=== PATIENT | male | born 1995 | race Caucasian/White ===

== ENCOUNTER 2018-11-03 07:13 | Emergency (ER) | payer OTHER, BC | END 2018-11-03 09:00 | disposition home or self-care (01) | LOC: ER FS 07:13 ==

== ENCOUNTER 2019-01-19 22:28 | Emergency (ER) | payer OTHER ==
[~2019-01-19] VITALS: Ht 187.7 cm; Wt 127.5 kg
[~2019-01-19 22:28] MED LIST: CIPR500T4 PO; HYDR-1231 PO
[2019-01-19 23:11] LABS: CLARITY,URINE CLEAR; COLOR,URINE YELLOW; GLUCOSE, URINE (UA) NEGATIVE (NEGATIVE); KETONES,URINE TRACE (NEGATIVE); NITRITE,URINE NEGATIVE (NEGATIVE); PH,URINE 6.5 (5-9); PROTEIN,URINE 2+ (NEGATIVE)
[2019-01-19 23:12] LABS: BACTERIA,URINE NEGATIVE /HPF; LEUKOCYTE ESTERASE ,URINE NEGATIVE (NEGATIVE)
[2019-01-19 23:13] LABS: BILIRUBIN,URINE 1+ (NEGATIVE)
[2019-01-19] MEDS ORDERED: VENL150C98 (23:16)
[2019-01-19] MEDS ORDERED: NS IV 1000 ML 1,000 ML IV ONE (23:38)
[2019-01-19] MEDS ORDERED: NS IV 1000 ML 1,000 ML IV SCH (23:38)
[2019-01-19] MEDS ORDERED: cefTRIAXone FOR IV USE 1,000 MG in WATER (STERILE) FOR INJECTION 10 ML IV ONE (23:45)
[2019-01-19] MEDS ORDERED: ONDANSETRON 4 MG/2 ML (SDV) Z0FRAN IV PRN (23:45)
[2019-01-19] MEDS ORDERED: KETOROLAC 30 MG/ML VIAL IVP ONE (23:45)
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
[2019-01-19 23:58] LABS: HEMATOCRIT 44 % (40-54); HEMOGLOBIN 14.8 G/DL (13.3-17.7); MEAN CORPUSCULAR HEMOGLOBIN 29 PG (25-34); MEAN CORPUSCULAR VOLUME 85 FL (80-99); WHITE BLOOD COUNT 22.9 10^3/uL (4.3-11.0)
[2019-01-19 23:59] LABS: BASOPHILS % (AUTO) 0 % (0-10); EOSINOPHILS % (AUTO) 0 % (0-10); LYMPHOCYTES # (AUTO) 0.7 X 10^3 (1.0-4.0); LYMPHOCYTES % (AUTO) 3 % (12-44); MEAN CORPUSCULAR HGB CONC 34 G/DL (32-36); MEAN PLATELET VOLUME 9.8 FL (7.4-10.4); MONOCYTES # (AUTO) 1.6 X 10^3 (0.0-1.0); MONOCYTES % (AUTO) 7 % (0-12); NEUTROPHILS # (AUTO) 20.5 X 10^3 (1.8-7.8); NEUTROPHILS % (AUTO) 89 % (42-75); PLATELET COUNT 226 10^3/uL (130-400); RED CELL DISTRIBUTION WIDTH 13.5 % (10.0-14.5)
[2019-01-20 00:11] LABS: INR 0.9 (0.8-1.4)
[2019-01-20 00:25] LABS: BAND NEUTROPHILS 11 %; MICROCYTOSIS MODERATE; MONOCYTES % (MANUAL) 1 %; NEUTROPHILS % (MANUAL) 86 %; REACTIVE LYMPHOCYTES 2 %
[2019-01-20 00:26] LABS: ALANINE AMINOTRANSFERASE 114 U/L (0-55); ALBUMIN 4.6 GM/DL (3.2-4.5); ALKALINE PHOSPHATASE 114 U/L (40-136); BILIRUBIN,TOTAL 0.4 MG/DL (0.1-1.0); BUN/CREATININE RATIO 15; CALCIUM 9.3 MG/DL (8.5-10.1); CARBON DIOXIDE 21 MMOL/L (21-32); CHLORIDE 97 MMOL/L (98-107); CREATININE SERUM 0.81 MG/DL (0.60-1.30); GFR ESTIMATED > 60; GLUCOSE 143 MG/DL (70-105); POTASSIUM 4.2 MMOL/L (3.6-5.0); SODIUM 135 MMOL/L (135-145); TOTAL PROTEIN 7.7 GM/DL (6.4-8.2)
[2019-01-20] MEDS ORDERED: LACTATED RINGERS 1,000 ML IV ONE (01:26)
[2019-01-20] MEDS ORDERED: CEFD300C3 PO (02:11)
[2019-01-20] MEDS ORDERED: ONDA4TAB11 PO (02:11)
[2019-01-20 02:19] VITALS: BP 147/58
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
== END 2019-01-20 02:19 | disposition home or self-care (01) ==
LOC: EDUNIT# 22:28 → ER FS 22:29
DX: A41.9 Sepsis, unspecified organism (principal); J18.9 Pneumonia, unspecified organism; J40 Bronchitis, not specified as acute or chronic; N39.0 Urinary tract infection, site not specified; F41.9 Anxiety disorder, unspecified; F31.9 Bipolar disorder, unspecified; F20.9 Schizophrenia, unspecified; Z87.891 Personal history of nicotine dependence
CPT/HCPCS: 36415; 71046; 80053; 81000; 83605; 85007; 85027; 85610; 85730; 87040; 87088; 87804

== ENCOUNTER → 2019-02-07 | Outpatient (CLI) | payer OTHER ==
[~2019-02-07] MED LIST changes: +CEFD300C3 PO; +ONDA4TAB11 PO; +VENL150C98
[2019-02-07 16:38] LABS: ALKALINE PHOSPHATASE 112 U/L (40-136); BILIRUBIN,TOTAL 0.5 MG/DL (0.1-1.0); BUN/CREATININE RATIO 15; CALCIUM 9.7 MG/DL (8.5-10.1); CARBON DIOXIDE 25 MMOL/L (21-32); CHLORIDE 100 MMOL/L (98-107); CREATININE SERUM 0.84 MG/DL (0.60-1.30); GFR ESTIMATED > 60; GLUCOSE 99 MG/DL (70-105); POTASSIUM 4.2 MMOL/L (3.6-5.0); SODIUM 139 MMOL/L (135-145)
[2019-02-07 16:39] LABS: ALANINE AMINOTRANSFERASE 94 U/L (0-55); ALBUMIN 4.6 GM/DL (3.2-4.5); TOTAL PROTEIN 8.2 GM/DL (6.4-8.2)
[2019-02-07 17:06] LABS: BASOPHILS % (AUTO) 1 % (0-10); EOSINOPHILS % (AUTO) 1 % (0-10); HEMATOCRIT 46 % (40-54); HEMOGLOBIN 15.3 G/DL (13.3-17.7); LYMPHOCYTES % (AUTO) 24 % (12-44); MEAN CORPUSCULAR HEMOGLOBIN 28 PG (25-34); MEAN CORPUSCULAR HGB CONC 33 G/DL (32-36); MEAN CORPUSCULAR VOLUME 86 FL (80-99); MEAN PLATELET VOLUME 10.1 FL (7.4-10.4); MONOCYTES % (AUTO) 10 % (0-12); NEUTROPHILS % (AUTO) 64 % (42-75); PLATELET COUNT 303 10^3/uL (130-400); RED CELL DISTRIBUTION WIDTH 13.3 % (10.0-14.5); WHITE BLOOD COUNT 8.2 10^3/uL (4.3-11.0)
[2019-02-07 17:07] LABS: BASOPHILS # (AUTO) 0.1 10^3/uL (0.0-0.1); EOSINOPHILS # (AUTO) 0.1 10^3/uL (0.0-0.3); LYMPHOCYTES # (AUTO) 1.9 X 10^3 (1.0-4.0); MONOCYTES # (AUTO) 0.8 X 10^3 (0.0-1.0); NEUTROPHILS # (AUTO) 5.3 X 10^3 (1.8-7.8)
[2019-02-07 20:06] LABS: BAND NEUTROPHILS 1 %; BASOPHILS % (MANUAL) 0 %; EOSINOPHILS % (MANUAL) 0 %; LYMPHOCYTES % (MANUAL) 26 %; MONOCYTES % (MANUAL) 6 %; NEUTROPHILS % (MANUAL) 67 %
[2019-02-07 22:11] LABS: FREE T4 (FREE THYROXINE) 0.95 NG/DL (0.70-1.48)
== END ==
LOC: LAB FS 15:12
PROVIDERS: ATTEND Nurse Practitioner
DX: I10 Essential (primary) hypertension (principal); R50.9 Fever, unspecified; R10.9 Unspecified abdominal pain
CPT/HCPCS: 36415; 80053; 84439; 84443; 85007; 85027; 87040

== ENCOUNTER 2019-02-09 09:35 | Emergency (ER) | payer OTHER ==
[~2019-02-09] VITALS: Ht 185.4 cm; Wt 135.1 kg
--- NOTE | 2019-02-09 09:40 | NUR ---
Presents to ED Rm 4 after patient states goodbye to his sister Marques that drove him. Marques left phone number [phone] and requests the RN to call her CHELSEY to talk.
[2019-02-09 10:01] LABS: WHITE BLOOD COUNT 9.2 10^3/uL (4.3-11.0)
[2019-02-09 10:02] LABS: BASOPHILS % (AUTO) 0 % (0-10); EOSINOPHILS # (AUTO) 0.1 10^3/uL (0.0-0.3); EOSINOPHILS % (AUTO) 1 % (0-10); HEMATOCRIT 46 % (40-54); HEMOGLOBIN 15.2 G/DL (13.3-17.7); LYMPHOCYTES # (AUTO) 2.3 X 10^3 (1.0-4.0); LYMPHOCYTES % (AUTO) 25 % (12-44); MEAN CORPUSCULAR HEMOGLOBIN 28 PG (25-34); MEAN CORPUSCULAR HGB CONC 33 G/DL (32-36); MEAN CORPUSCULAR VOLUME 86 FL (80-99); MEAN PLATELET VOLUME 9.9 FL (7.4-10.4); MONOCYTES # (AUTO) 0.8 X 10^3 (0.0-1.0); MONOCYTES % (AUTO) 9 % (0-12); NEUTROPHILS # (AUTO) 5.9 X 10^3 (1.8-7.8); NEUTROPHILS % (AUTO) 64 % (42-75); PLATELET COUNT 308 10^3/uL (130-400); RED CELL DISTRIBUTION WIDTH 13.4 % (10.0-14.5)
[2019-02-09 10:11] LABS: AMPHETAMINE SCREEN, URINE NEGATIVE (NEGATIVE); BARBITURATE SCREEN URINE NEGATIVE (NEGATIVE); BENZODIAZEPINES SCREEN URINE NEGATIVE (NEGATIVE); CANNABINOID SCREEN, URINE NEGATIVE (NEGATIVE); COCAINE SCREEN URINE NEGATIVE (NEGATIVE); METHADONE STAT NEGATIVE (NEGATIVE); METHAMPHETAMINE SCREEN URINE S NEGATIVE (NEGATIVE); OPIATE SCREEN URINE NEGATIVE (NEGATIVE); OXYCODONE STAT NEGATIVE (NEGATIVE); PROPOXYPHENE STAT NEGATIVE (NEGATIVE); TRICYCLIC ANTIDEPRESSANTS SCRE NEGATIVE (NEGATIVE)
[2019-02-09 10:19] LABS: CARBON DIOXIDE 26 MMOL/L (21-32); CHLORIDE 98 MMOL/L (98-107); POTASSIUM 3.9 MMOL/L (3.6-5.0); SODIUM 139 MMOL/L (135-145)
[2019-02-09 10:20] LABS: ALANINE AMINOTRANSFERASE 90 U/L (0-55); ALBUMIN 4.9 GM/DL (3.2-4.5); ALKALINE PHOSPHATASE 112 U/L (40-136); BILIRUBIN,TOTAL 0.6 MG/DL (0.1-1.0); BUN/CREATININE RATIO 16; CALCIUM 9.9 MG/DL (8.5-10.1); CREATININE SERUM 0.94 MG/DL (0.60-1.30); GFR ESTIMATED > 60; GLUCOSE 114 MG/DL (70-105); TOTAL PROTEIN 8.2 GM/DL (6.4-8.2)
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
[2019-02-09 10:28] LABS: BILIRUBIN,URINE NEGATIVE (NEGATIVE); CLARITY,URINE CLEAR; COLOR,URINE YELLOW; GLUCOSE, URINE (UA) NEGATIVE (NEGATIVE); KETONES,URINE NEGATIVE (NEGATIVE); LEUKOCYTE ESTERASE ,URINE NEGATIVE (NEGATIVE); NITRITE,URINE NEGATIVE (NEGATIVE); PROTEIN,URINE NEGATIVE (NEGATIVE); WBC,URINE RARE /HPF
--- NOTE | 2019-02-09 10:46 | ED Psychosocial ---
General Chief Complaint: Psych/Social Disorder Nursing Triage Note: Pt presents to ED driven by sister. Pt reports need for admit to mental health for help. Pt resides with biological father under his mental health direction and dependent for lack of financial/unemployed. Pt states he wants away from father or he will harm him. Source: patient Exam Limitations: no limitations (BOO GARDNER MD) History of Present Illness Date Seen by Provider: Feb 09, 2019 Time Seen by Provider: 10:38 Initial Comments The patient is a 23-year-old white male who was brought to the emergency room by his sister. He has been having mental health issues for several years. He is currently living with his father and they do not get along. His sister states that it appears at least by time that some of these issues came up all he was using acid and MDMA. He states that he is been in 3 mental health inpatient facilities the last being about a year ago. At this point he speaks of anger and wanting to kill his father. He believes that his father is hyper orthodox and trying to force got up him. He has recently been placed on an antidepressant. Apparently he has not taken any major tranquilizers although he states that there was a period of time where he came here and was given some sort of shot on a weekly basis. That lasted for about 3 months. He states that he has been seeing a mental health provider in [place]. He was recently seen. (BOO GARDNER MD) Allergies and Home Medications Allergies Coded Allergies: strawberry (Unverified Allergy, Unknown, 10/31/14) Home Medications Cefdinir 300 Mg Capsule, 300 MG PO BID Prescribed by: JOCELIN RAMIREZ on 01/20/19210 Ciprofloxacin HCl 500 Mg Tablet, 500 MG PO BID Prescribed by: TERRI NORMAN on 11/03/18 08 Hydrocodone Bit/Acetaminophen 1 Tab Tablet, 1 TAB PO Q4H PRN for PAIN Prescribed by: ANTONETTE BENNETT on 11/01/14222 Ondansetron 4 Mg Tab.rapdis, 4 MG PO Q6H PRN for NAUSEA/VOMITING Prescribed by: JOCELIN RAMIREZ on 01/20/19210 Patient Home Medication List Home Medication List Reviewed: Yes (JUSTIN SERRANO DO) Review of Systems Constitutional: see HPI EENTM: no symptoms reported Respiratory: no symptoms reported Cardiovascular: no symptoms reported Gastrointestinal: no symptoms reported Genitourinary: no symptoms reported Musculoskeletal: no symptoms reported Skin: no symptoms reported Psychiatric/Neurological: See HPI, Depressed He states that he talked to himself. It is not clear whether he has been hearing voices. (BOO GARDNER MD) Past Btmpirp-Ysteep-Guffvw Hx Patient Social History Alcohol Use: Occasionally Uses Number of Drinks Today: 0 Alcohol Beverage of Choice: Whiskey Recreational Drug Use: No Drug of Choice: Hx-MDMA Smoking Status: Former Smoker Type Used: Cigarettes Former Smoker, Quit: Oct 31, 2017 2nd Hand Smoke Exposure: No Recent Foreign Travel: No Contact w/Someone Who Travel: No Recent Infectious Disease Expo: No Recent Hopitalizations: No Physical Abuse: No Sexual Abuse: No Mistreated: No Fear: No (BOO GARDNER MD) Immunizations Up To Date Tetanus Booster (TDap): More than 5yrs (BOO GARDNER MD) Seasonal Allergies Seasonal Allergies: No (BOO GARDNER MD) Past Medical History Surgeries: Yes (L wrist) Orthopedic Respiratory: No Cardiac: Yes Hypertension Neurological: No Reproductive Disorders: No Sexually Transmitted Disease: No Genitourinary: No Gastrointestinal: No Musculoskeletal: No Arthritis Endocrine: No HEENT: No Cancer: No Psychosocial: Yes Sleep Difficulties, Anxiety, Bipolar, Schizophrenia, Depression Integumentary: No Blood Disorders: No (BOO GARDNER MD) Physical Exam Vital Signs - First Documented 02/09/19 09:40 Temp 36.2 Pulse 101 Resp 22 B/P (MAP) 160/82 (108) Pulse Ox 97 O2 Delivery Room Air (JUSTIN SERRANO DO) Capillary Refill : Less Than 3 Seconds (BOO GARDNER MD) Height, Weight, BMI Height: 6'1.00" Weight: 250lbs. oz. 113.398680rg; 39.00 BMI Method:Stated General Appearance: mild distress (also seems to know many psych words and phrases.) HEENT: normal ENT inspection Neck: full range of motion Respiratory: chest non-tender, lungs clear, normal breath sounds, no respirator y distress, no accessory muscle use, respiratory distress Cardiovascular: normal peripheral pulses, regular rate, rhythm, no edema, no gallop, no JVD, no murmur Gastrointestinal: normal bowel sounds, non tender, soft Extremities: normal range of motion, normal inspection Neurologic/Psychiatric: cardiology fellow II-XII nml as tested, alert (BOO GARDNER MD) Progress/Results/Core Measures Results/Orders Lab Results Laboratory Tests Test 02/09/19 09:45 02/09/19 09:50 Range/Units Salicylates Level < 3.0 L 5.0-20.0 MG/DL Acetaminophen Level < 10 L 10-30 UG/ML White Blood Count 9.2 4.3-11.0 10^3/uL Red Blood Count 5.38 4.35-5.85 10^6/uL Hemoglobin 15.2 13.3-17.7 G/DL Hematocrit 46 40-54 % Mean Corpuscular Volume 86 80-99 FL Mean Corpuscular Hemoglobin 28 25-34 PG Mean Corpuscular Hemoglobin Concent 33 32-36 G/DL Red Cell Distribution Width 13.4 10.0-14.5 % Platelet Count 308 130-400 10^3/uL Mean Platelet Volume 9.9 7.4-10.4 FL Neutrophils (%) (Auto) 64 42-75 % Lymphocytes (%) (Auto) 25 12-44 % Monocytes (%) (Auto) 9 0-12 % Eosinophils (%) (Auto) 1 0-10 % Basophils (%) (Auto) 0 0-10 % Neutrophils # (Auto) 5.9 1.8-7.8 X 10^3 Lymphocytes # (Auto) 2.3 1.0-4.0 X 10^3 Monocytes # (Auto) 0.8 0.0-1.0 X 10^3 Eosinophils # (Auto) 0.1 0.0-0.3 10^3/uL Basophils # (Auto) 0.0 0.0-0.1 10^3/uL Urine Color YELLOW Urine Clarity CLEAR Urine pH 6.0 5-9 Urine Specific [place] 1.025 H 1.016-1.022 Urine Protein NEGATIVE NEGATIVE Urine Glucose (UA) NEGATIVE NEGATIVE Urine Ketones NEGATIVE NEGATIVE Urine Nitrite NEGATIVE NEGATIVE Urine Bilirubin NEGATIVE NEGATIVE Urine Urobilinogen 0.2 < = 1.0 MG/DL Urine Leukocyte Esterase NEGATIVE NEGATIVE Urine RBC (Auto) NEGATIVE NEGATIVE Urine RBC NONE /HPF Urine WBC RARE /HPF Urine Crystals NONE /LPF Urine Bacteria NONE /HPF Urine Casts NONE /LPF Urine Mucus TRACE /LPF Urine Culture Indicated NO Sodium Level 139 135-145 MMOL/L Potassium Level 3.9 3.6-5.0 MMOL/L Chloride Level 98 98-107 MMOL/L Carbon Dioxide Level 26 21-32 MMOL/L Anion Gap 15 H 5-14 MMOL/L Blood Urea Nitrogen 15 7-18 MG/DL Creatinine 0.94 0.60-1.30 MG/DL Estimat Glomerular Filtration Rate > 60 BUN/Creatinine Ratio 16 Glucose Level 114 H 70-105 MG/DL Calcium Level 9.9 8.5-10.1 MG/DL Corrected Calcium 8.5-10.1 MG/DL Total Bilirubin 0.6 0.1-1.0 MG/DL Aspartate Amino Transf (AST/SGOT) 24 5-34 U/L Alanine Aminotransferase (ALT/SGPT) 90 H 0-55 U/L Alkaline Phosphatase 112 40-136 U/L Total Protein 8.2 6.4-8.2 GM/DL Albumin 4.9 H 3.2-4.5 GM/DL Urine Opiates Screen NEGATIVE NEGATIVE Urine Oxycodone Screen NEGATIVE NEGATIVE Urine Methadone Screen NEGATIVE NEGATIVE Urine Propoxyphene Screen NEGATIVE NEGATIVE Urine Barbiturates Screen NEGATIVE NEGATIVE Ur Tricyclic Antidepressants Screen NEGATIVE NEGATIVE Urine Phencyclidine Screen NEGATIVE NEGATIVE Urine Amphetamines Screen NEGATIVE NEGATIVE Urine Methamphetamines Screen NEGATIVE NEGATIVE Urine Benzodiazepines Screen NEGATIVE NEGATIVE Urine Cocaine Screen NEGATIVE NEGATIVE Urine Cannabinoids Screen NEGATIVE NEGATIVE Serum Alcohol < 10 <10 MG/DL (JUSTIN SERRANO DO) Vital Signs/I&O 02/10/19 02/10/19 08:33 11:47 Temp 36.5 35.8 Pulse 77 79 Resp 14 18 B/P (MAP) 111/65 (80) 122/62 (82) Pulse Ox 99 97 (JUSTIN SERRANO DO) Blood Pressure Mean: 108 POS Departure Communication (Admissions) 1205: Mental health services completed assessment. This was shared by Internet with nurse and physician here. The recommendation is for inpatient treatment and the mental health service will be arranging both placement and transportation. (BOO GARDNER MD) Impression Primary Impression: Homicidal behavior Disposition: XFER SHT-TRM HOSP Condition: Stable Transfer Transfer Reason: Exceeds level of care Transfer Progress Notes Patient accepted at [facility] at 1400 on 02/10. Transferred in stable medical condition. Transfer Time: 16:00 Transfer Facility: [facility] Method of Transfer: EMS (JUSTIN SERRANO DO) Departure-Patient Inst. Referrals: VIANNEY MARTÍNEZ MD (PCP/Family) Primary Care Physician BOO GARDNER MD Feb 09, 2019 10:46 POSWHJUSTIN QUINONEZ DO Feb 10, 2019 12:57 POS
--- NOTE | 2019-02-09 10:54 | NUR ---
Call to [facility] screening and spoke with Jacqueline. Tracking #[id number]
[2019-02-09 11:10] LABS: ACETAMINOPHEN < 10 UG/ML (10-30); SALICYLATE < 3.0 MG/DL (5.0-20.0)
--- NOTE | 2019-02-09 11:17 | NUR ---
This RN received call from [facility], Aristeoer visiting with RN.
--- NOTE | 2019-02-09 11:31 | NUR ---
RN begins mental health evaluation via Zoom on Laptop with Luis A and the patient.
--- NOTE | 2019-02-09 12:01 | NUR ---
Patient remains near nurses station in view of RN. Pt's voice is escalating as screener has began to talk about pt's relationship with his father. Pt can be heard in hallway with door closed.
--- NOTE | 2019-02-09 12:05 | NUR ---
Received report from raj Gunn admit and working on calling for placement hoping [facility] and will call us back.
--- NOTE | 2019-02-09 12:30 | NUR ---
Pt out of room to ambulate to bathroom. No verbalized c/o's.
--- NOTE | 2019-02-09 12:52 | NUR ---
Call to sister to request patient get glasses, Effexor, and BP med brought to hospital for his transfer per mention request of Luis A with Mental Health. Pt wants these for his transfer.
--- NOTE | 2019-02-09 13:05 | NUR ---
Patient is pacing non-stop in small rm. Entered room to check on patient and request for water granted.
--- NOTE | 2019-02-09 14:00 | NUR ---
Food that is available in ER patient freezer/refrigerator offered. Patient ate sandwich, chips, orange juice, puddings.
--- NOTE | 2019-02-09 16:14 | NUR ---
[facility] has not called to Luis A to accept pt. Luis A has continued to be in screenings and he just got between cases and called to their facility. Luis A will return call to ER later with update.
--- NOTE | 2019-02-09 16:43 | NUR ---
Call from [facility] Gunn report they gave away bed for placement but also were quoted they had not called Luis A or the [facility] any acceptance and now they inform try again tomorrow. Luis A reported his grievance with them and now offering to try [facility] or [facility]. Pt remains cooperative and requests [place]. Will await return call.
--- NOTE | 2019-02-09 17:40 | NUR ---
Dr Manuel in to see patient and reports sorry for delays in placement but out of hands of ER provider as placement per Mental Health screeners. Pt has been cooperative and appreciation was given. Pt goes to bathroom prn with compliance of returning to room. Intermittant request for a drink of water. Pt has been allowed to watch TV with door being open and continued to be in direct view. Pt has been calm and no observation of pacing or talking to self.
--- NOTE | 2019-02-09 19:25 | NUR ---
Luis A from [facility] called to advise that [facility] in [place] is currently reviewing this patients case.
--- NOTE | 2019-02-09 19:54 | NUR ---
Alex from [facility] admissions called to speak with patient.
[2019-02-09 20:06] VITALS: BP 141/80
--- NOTE | 2019-02-09 22:26 | NUR ---
This RN called [facility] to get a status update. They stated that he was declined by [facility] and they were working on finding another facility. This RN requested to be called back for a status update when they found a facility.
--- NOTE | 2019-02-10 00:28 | NUR ---
This RN called [facility] for a status update. Laura from mental health states that [facility] is considering him but will not have beds available until the morning.
--- NOTE | 2019-02-10 04:56 | NUR ---
Patient is up and this RN updated him on status that was last reported by [facility].
--- NOTE | 2019-02-10 08:20 | NUR ---
Patient provided oatmeal and orange juice for breakfast. Is resting quietly in bed and states he has no other concerns at this time.
[2019-02-10 08:33] VITALS: BP 111/65
--- NOTE | 2019-02-10 08:39 | NUR ---
Received call from [facility], who states they are starting to review the patient's information and will call back to let us know if he is accepted.
--- NOTE | 2019-02-10 09:25 | NUR ---
[facility] called to say they have accepted the patient, but transfer will have to be delayed until 1400 when they discharge patients.
--- NOTE | 2019-02-10 11:16 | NUR ---
Notified Cristhian at [facility] that patient has been accepted at [facility]. Daniit states he will work on transportation for the patient.
--- NOTE | 2019-02-10 11:26 | NUR ---
attempted to call patients sister, lefty, to inform of acceptance at [facility]. Left voice message at this time.
[2019-02-10 11:47] VITALS: BP 122/62
--- NOTE | 2019-02-10 13:39 | NUR ---
Talked to [facility] auxili[facility] supervisor and stated an off duty crew will take the patient. Bruce was informed that the patient will be ready to go at 1400.
[2019-02-10 14:42] VITALS: BP 128/77
== END 2019-02-10 14:36 ==
LOC: EDUNIT# 09:35 → ER FS 09:36
DX: R45.850 Homicidal ideations (principal); I10 Essential (primary) hypertension; F41.9 Anxiety disorder, unspecified; F31.9 Bipolar disorder, unspecified; F20.9 Schizophrenia, unspecified; Z87.891 Personal history of nicotine dependence
CPT/HCPCS: 36415; 80053; 80306; 80320; 80329; 81000; 85025; 93005

== ENCOUNTER 2019-08-29 16:53 | Emergency (ER) | payer OTHER ==
[2019-08-29 17:40] LABS: BILIRUBIN,URINE NEGATIVE (NEGATIVE); CLARITY,URINE CLEAR; COLOR,URINE YELLOW; GLUCOSE, URINE (UA) NEGATIVE (NEGATIVE); KETONES,URINE NEGATIVE (NEGATIVE); LEUKOCYTE ESTERASE ,URINE NEGATIVE (NEGATIVE); NITRITE,URINE NEGATIVE (NEGATIVE); PROTEIN,URINE NEGATIVE (NEGATIVE)
[2019-08-29 17:43] LABS: BACTERIA,URINE NEGATIVE /HPF; RBC,URINE 0-2 /HPF; WBC,URINE RARE /HPF
[2019-08-29 17:50] LABS: AMPHETAMINE SCREEN, URINE NEGATIVE (NEGATIVE); BARBITURATE SCREEN URINE NEGATIVE (NEGATIVE); BENZODIAZEPINES SCREEN URINE NEGATIVE (NEGATIVE); CANNABINOID SCREEN, URINE NEGATIVE (NEGATIVE); COCAINE SCREEN URINE NEGATIVE (NEGATIVE); METHADONE STAT NEGATIVE (NEGATIVE); METHAMPHETAMINE SCREEN URINE S NEGATIVE (NEGATIVE); OPIATE SCREEN URINE NEGATIVE (NEGATIVE); OXYCODONE STAT NEGATIVE (NEGATIVE); PROPOXYPHENE STAT NEGATIVE (NEGATIVE); TRICYCLIC ANTIDEPRESSANTS SCRE NEGATIVE (NEGATIVE)
[2019-08-29 18:02] LABS: EOSINOPHILS % (AUTO) 1 % (0-10); HEMATOCRIT 44 % (40-54); LYMPHOCYTES % (AUTO) 22 % (12-44); MEAN CORPUSCULAR HEMOGLOBIN 30 PG (25-34); MEAN CORPUSCULAR HGB CONC 34 G/DL (32-36); MEAN CORPUSCULAR VOLUME 87 FL (80-99); MEAN PLATELET VOLUME 10.1 FL (7.4-10.4); MONOCYTES % (AUTO) 8 % (0-12); NEUTROPHILS % (AUTO) 69 % (42-75); PLATELET COUNT 254 10^3/uL (130-400); RED CELL DISTRIBUTION WIDTH 13.5 % (10.0-14.5); WHITE BLOOD COUNT 11.6 10^3/uL (4.3-11.0)
[2019-08-29 18:03] LABS: BASOPHILS % (AUTO) 0 % (0-10); EOSINOPHILS # (AUTO) 0.1 10^3/uL (0.0-0.3); LYMPHOCYTES # (AUTO) 2.5 X 10^3 (1.0-4.0); MONOCYTES # (AUTO) 0.9 X 10^3 (0.0-1.0); NEUTROPHILS # (AUTO) 8.1 X 10^3 (1.8-7.8)
[2019-08-29 18:31] LABS: ACETAMINOPHEN < 10 UG/ML (10-30); ALANINE AMINOTRANSFERASE 73 U/L (0-55); ALBUMIN 4.5 GM/DL (3.2-4.5); ALKALINE PHOSPHATASE 102 U/L (40-136); BILIRUBIN,TOTAL 0.3 MG/DL (0.1-1.0); BUN/CREATININE RATIO 14; CALCIUM 9.5 MG/DL (8.5-10.1); CARBON DIOXIDE 24 MMOL/L (21-32); CHLORIDE 102 MMOL/L (98-107); CREATININE SERUM 0.85 MG/DL (0.60-1.30); GFR ESTIMATED > 60; GLUCOSE 94 MG/DL (70-105); POTASSIUM 4.2 MMOL/L (3.6-5.0); SALICYLATE < 0.3 MG/DL (5.0-20.0); SODIUM 140 MMOL/L (135-145); TOTAL PROTEIN 7.2 GM/DL (6.4-8.2)
--- NOTE | 2019-08-29 18:41 | ED Psychosocial ---
General Chief Complaint: Psych/Social Disorder Stated Complaint: MENTAL HEALTH SCREEN Source: patient Exam Limitations: no limitations History of Present Illness Date Seen by Provider: August 29, 2019 Time Seen by Provider: 18:43 Initial Comments Pt presents with depression, suicidal ideation. Has a prior history of suicidal ideation and previous attempts at suicide. He states he feels hopeless and doesn't want to go on. Denies any alcohol or drug use. He states that he takes Effexor and Wellbutrin and he has been taking those recently. Allergies and Home Medications Allergies Coded Allergies: strawberry (Unverified Allergy, Unknown, 10/31/14) Home Medications Cefdinir 300 Mg Capsule, 300 MG PO BID Prescribed by: JOCELIN RAMIREZ on 01/20/19210 Ciprofloxacin HCl 500 Mg Tablet, 500 MG PO BID Prescribed by: TERRI NORMAN on 11/03/18851 Hydrocodone Bit/Acetaminophen 1 Tab Tablet, 1 TAB PO Q4H PRN for PAIN Prescribed by: ANTONETTE BENNETT on 11/01/14222 Ondansetron 4 Mg Tab.rapdis, 4 MG PO Q6H PRN for NAUSEA/VOMITING Prescribed by: JOCELIN RAMIREZ on 01/20/19210 Patient Home Medication List Home Medication List Reviewed: Yes Review of Systems Constitutional: no symptoms reported, see HPI EENTM: see HPI, no symptoms reported Respiratory: no symptoms reported Cardiovascular: see HPI Gastrointestinal: no symptoms reported, see HPI Musculoskeletal: no symptoms reported Psychiatric/Neurological: Depressed, Emotional Problems Suicidal All Other Systems Reviewed Negative Unless Noted: Yes Past Fhdiulw-Biproi-Rbiyod Hx Patient Social History Alcohol Use: Occasionally Uses Number of Drinks Today: GG Alcohol Beverage of Choice: Whiskey Recreational Drug Use: No (denies currently) Drug of Choice: Hx-MDMA Smoking Status: Current Everyday Smoker Type Used: Cigarettes Former Smoker, Quit: Oct 31, 2017 2nd Hand Smoke Exposure: Yes Recent Foreign Travel: No Contact w/Someone Who Travel: No Recent Hopitalizations: No Immunizations Up To Date Tetanus Booster (TDap): More than 5yrs Seasonal Allergies Seasonal Allergies: No Past Medical History Surgeries: Yes (L wrist; knee) Orthopedic Respiratory: No Cardiac: Yes Hypertension Neurological: No Reproductive Disorders: No Sexually Transmitted Disease: No Genitourinary: No Gastrointestinal: No Musculoskeletal: Yes Arthritis Endocrine: No HEENT: No Cancer: No Psychosocial: Yes Sleep Difficulties, Anxiety, Bipolar, Schizophrenia, Depression Integumentary: No Blood Disorders: No Physical Exam Vital Signs - First Documented 08/29/19 08/29/19 17:20 21:30 Temp 36.7 Pulse 120 Resp 16 B/P (MAP) 132/80 (97) Pulse Ox 96 O2 Delivery Room Air Capillary Refill : Height, Weight, BMI Height: 6'1.00" Weight: 250lbs. oz. 113.964753oi; 39.00 BMI Method:Stated General Appearance: WD/WN, no apparent distress HEENT: normal ENT inspection Neck: full range of motion Respiratory: lungs clear, normal breath sounds Cardiovascular: normal peripheral pulses, regular rate, rhythm Gastrointestinal: non tender Extremities: normal range of motion Neurologic/Psychiatric: no motor/sensory deficits, alert, oriented x 3, depressed affect Appearance/Memory: appropriate appearance, impaired insight Behavior/Eye Contact: cooperative Thoughts/Hallucinations: no apparent hallucination Skin: normal color, warm/dry Progress/Results/Core Measures Results/Orders Lab Results Laboratory Tests Test 08/29/19 17:19 08/29/19 17:55 Range/Units Urine Color YELLOW Urine Clarity CLEAR Urine pH 6.0 5-9 Urine Specific [place] 1.020 1.016-1.022 Urine Protein NEGATIVE NEGATIVE Urine Glucose (UA) NEGATIVE NEGATIVE Urine Ketones NEGATIVE NEGATIVE Urine Nitrite NEGATIVE NEGATIVE Urine Bilirubin NEGATIVE NEGATIVE Urine Urobilinogen 0.2 < = 1.0 MG/DL Urine Leukocyte Esterase NEGATIVE NEGATIVE Urine RBC (Auto) NEGATIVE NEGATIVE Urine RBC 0-2 /HPF Urine WBC RARE /HPF Urine Squamous Epithelial Cells NONE /HPF Urine Crystals NONE /LPF Urine Bacteria NEGATIVE /HPF Urine Casts NONE /LPF Urine Mucus MODERATE H /LPF Urine Culture Indicated NO Urine Opiates Screen NEGATIVE NEGATIVE Urine Oxycodone Screen NEGATIVE NEGATIVE Urine Methadone Screen NEGATIVE NEGATIVE Urine Propoxyphene Screen NEGATIVE NEGATIVE Urine Barbiturates Screen NEGATIVE NEGATIVE Ur Tricyclic Antidepressants Screen NEGATIVE NEGATIVE Urine Phencyclidine Screen NEGATIVE NEGATIVE Urine Amphetamines Screen NEGATIVE NEGATIVE Urine Methamphetamines Screen NEGATIVE NEGATIVE Urine Benzodiazepines Screen NEGATIVE NEGATIVE Urine Cocaine Screen NEGATIVE NEGATIVE Urine Cannabinoids Screen NEGATIVE NEGATIVE White Blood Count 11.6 H 4.3-11.0 10^3/uL Red Blood Count 5.06 4.35-5.85 10^6/uL Hemoglobin 15.0 13.3-17.7 G/DL Hematocrit 44 40-54 % Mean Corpuscular Volume 87 80-99 FL Mean Corpuscular Hemoglobin 30 25-34 PG Mean Corpuscular Hemoglobin Concent 34 32-36 G/DL Red Cell Distribution Width 13.5 10.0-14.5 % Platelet Count 254 130-400 10^3/uL Mean Platelet Volume 10.1 7.4-10.4 FL Neutrophils (%) (Auto) 69 42-75 % Lymphocytes (%) (Auto) 22 12-44 % Monocytes (%) (Auto) 8 0-12 % Eosinophils (%) (Auto) 1 0-10 % Basophils (%) (Auto) 0 0-10 % Neutrophils # (Auto) 8.1 H 1.8-7.8 X 10^3 Lymphocytes # (Auto) 2.5 1.0-4.0 X 10^3 Monocytes # (Auto) 0.9 0.0-1.0 X 10^3 Eosinophils # (Auto) 0.1 0.0-0.3 10^3/uL Basophils # (Auto) 0.0 0.0-0.1 10^3/uL Sodium Level 140 135-145 MMOL/L Potassium Level 4.2 3.6-5.0 MMOL/L Chloride Level 102 98-107 MMOL/L Carbon Dioxide Level 24 21-32 MMOL/L Anion Gap 14 5-14 MMOL/L Blood Urea Nitrogen 12 7-18 MG/DL Creatinine 0.85 0.60-1.30 MG/DL Estimat Glomerular Filtration Rate > 60 BUN/Creatinine Ratio 14 Glucose Level 94 70-105 MG/DL Calcium Level 9.5 8.5-10.1 MG/DL Corrected Calcium 9.1 8.5-10.1 MG/DL Total Bilirubin 0.3 0.1-1.0 MG/DL Aspartate Amino Transf (AST/SGOT) 16 5-34 U/L Alanine Aminotransferase (ALT/SGPT) 73 H 0-55 U/L Alkaline Phosphatase 102 40-136 U/L Total Protein 7.2 6.4-8.2 GM/DL Albumin 4.5 3.2-4.5 GM/DL Salicylates Level < 0.3 L 5.0-20.0 MG/DL Acetaminophen Level < 10 L 10-30 UG/ML Serum Alcohol < 10 <10 MG/DL Vital Signs/I&O 08/29/19 08/29/19 17:20 21:30 Temp 36.7 Pulse 120 Resp 16 18 B/P (MAP) 132/80 (97) 144/82 (102) Pulse Ox 96 97 O2 Delivery Room Air Initial ECG Impression Date: August 29, 2019 Initial ECG Rate: 86 Initial ECG Rhythm: Normal Sinus Initial ECG Intervals: Normal Initial ECG Impression: Normal Departure Impression Primary Impression: Suicidal ideation Disposition: 65 XFER TO PSYCH HOSP/UNIT Condition: Stable Transfer Transfer Reason: Exceeds level of care Time Spoke to Accepting Phy: 00:30 Transfer Progress Notes Accepted by Dr. Hoover. Transfer Time: 00:30 Transfer Facility: [facility] Method of Transfer: EMS Departure-Patient Inst. Referrals: VIANNEY MARTÍNEZ MD (PCP/Family) Primary Care Physician MILAN REBOLLAR MD August 29, 2019 18:41
--- NOTE | 2019-08-29 18:59 | NUR ---
Called [facility] to request screening. Labs, facesheets, and notes to be faxed to [phone]. Tracking number is [id number]
[2019-08-29] MEDS ORDERED: BUSP15TA60 (19:01)
[2019-08-29] MEDS ORDERED: METO-333 (19:01)
--- NOTE | 2019-08-29 19:42 | NUR ---
[facility] screener on zoom with ptKyle
--- NOTE | 2019-08-29 20:24 | NUR ---
psych screening completed
--- NOTE | 2019-08-29 21:07 | NUR ---
[facility] screener called to state she will try to get a hold of [facility] for pts voluntary placement.
[2019-08-29 21:30] VITALS: BP 144/82
--- NOTE | 2019-08-29 23:50 | NUR ---
Elia noriega called to verify vital signs. pt updated on status, pt is resting on cot with no complaints.
--- NOTE | 2019-08-30 00:28 | NUR ---
[facility] pt. Alejandrina spoke with pts parents earlier and father will transport. Dr Hoover accepted pt.
[2019-08-30 00:42] VITALS: BP 144/89
[2019-08-30 00:45] VITALS: BP 142/89
--- NOTE | 2019-08-30 00:45 | NUR ---
mother here to get pt.
== END 2019-08-30 00:45 ==
LOC: EDUNIT# 16:53 → ER FS 16:54
DX: R45.851 Suicidal ideations (principal); F41.9 Anxiety disorder, unspecified; F31.9 Bipolar disorder, unspecified; F17.210 Nicotine dependence, cigarettes, uncomplicated
CPT/HCPCS: 36415; 80053; 80306; 80320; 80329; 81000; 85025; 93005; 93041

== ENCOUNTER 2019-09-28 14:11 | Emergency (ER) | payer OTHER ==
[~2019-09-28] VITALS: Ht 183 cm; Wt 129.1 kg
[~2019-09-28 14:11] MED LIST changes: +BUSP15TA60; +METO-333
--- NOTE | 2019-09-28 14:12 | ED General ---
General Stated Complaint: WANT MENTAL HEALTH SCREENING History of Present Illness Date Seen by Provider: Sep 28, 2019 Time Seen by Provider: 14:20 Initial Comments Patient is a 24 y/o male who comes to the ER today requesting mental health screening. Patient endorses a chronic history of feeling sad, depressed, and sometimes suicidal about his current life situation. Patient states he has been seen for this in the recent past and electronic medical record confirms this. Today, he has no emergent complaint. He is not actively suicidal and does not have a plan to kill himself. Rather, he states he feels like hurting himself frequently and has diffuse ideas about how to do so. Nothing new today. He does however say he has been punching himself and he does have some ecchymosis noted over the left orbit. No recent viral symptoms. Allergies and Home Medications Allergies Coded Allergies: strawberry (Unverified Allergy, Unknown, 10/31/14) Home Medications Cefdinir 300 Mg Capsule, 300 MG PO BID Prescribed by: JOCELIN RAMIREZ on 01/20/19210 Ciprofloxacin HCl 500 Mg Tablet, 500 MG PO BID Prescribed by: TERRI NORMAN on 11/03/18 0852 Hydrocodone Bit/Acetaminophen 1 Tab Tablet, 1 TAB PO Q4H PRN for PAIN Prescribed by: ANTONETTE BENNETT on 11/01/14 022 Ondansetron 4 Mg Tab.rapdis, 4 MG PO Q6H PRN for NAUSEA/VOMITING Prescribed by: JOCELIN RAMIREZ on 01/20/19210 Patient Home Medication List Home Medication List Reviewed: Yes Review of Systems Review of Systems Constitutional: no symptoms reported EENTM: see HPI Respiratory: no symptoms reported Cardiovascular: no symptoms reported Musculoskeletal: no symptoms reported Skin: no symptoms reported Psychiatric/Neurological: See HPI Physical Exam Vital Signs Vital Signs - First Documented 09/28/19 14:23 Temp 36.4 Pulse 110 Resp 18 B/P (MAP) 136/71 (92) Pulse Ox 97 O2 Delivery Room Air Capillary Refill : Height, Weight, BMI Height: '" Weight: lbs. oz. kg; BMI Method: General Appearance: No Apparent Distress, WD/WN HEENT: PERRL/EOMI Neck: Full Range of Motion Respiratory: Lungs Clear Cardiovascular: Regular Rate, Rhythm Gastrointestinal: Normal Bowel Sounds, Soft Extremity: Normal Capillary Refill Neurologic/Psychiatric: Alert, Oriented x3, Depressed Affect Skin: Normal Color Progress/Results/Core Measures Suspected Sepsis SIRS Temperature: Pulse: Respiratory Rate: Laboratory Tests 09/28/19 14:27: White Blood Count 12.6H Blood Pressure / Mean: Laboratory Tests 09/28/19 14:27: Creatinine 0.78, Platelet Count 298, Total Bilirubin 0.4 Results/Orders Lab Results Laboratory Tests Test 09/28/19 14:27 09/28/19 14:33 Range/Units White Blood Count 12.6 H 4.3-11.0 10^3/uL Red Blood Count 5.38 4.35-5.85 10^6/uL Hemoglobin 16.1 13.3-17.7 G/DL Hematocrit 47 40-54 % Mean Corpuscular Volume 88 80-99 FL Mean Corpuscular Hemoglobin 30 25-34 PG Mean Corpuscular Hemoglobin Concent 34 32-36 G/DL Red Cell Distribution Width 13.7 10.0-14.5 % Platelet Count 298 130-400 10^3/uL Mean Platelet Volume 9.9 7.4-10.4 FL Neutrophils (%) (Auto) 70 42-75 % Lymphocytes (%) (Auto) 21 12-44 % Monocytes (%) (Auto) 8 0-12 % Eosinophils (%) (Auto) 1 0-10 % Basophils (%) (Auto) 0 0-10 % Neutrophils # (Auto) 8.8 H 1.8-7.8 X 10^3 Lymphocytes # (Auto) 2.6 1.0-4.0 X 10^3 Monocytes # (Auto) 1.0 0.0-1.0 X 10^3 Eosinophils # (Auto) 0.2 0.0-0.3 10^3/uL Basophils # (Auto) 0.0 0.0-0.1 10^3/uL Sodium Level 140 135-145 MMOL/L Potassium Level 3.9 3.6-5.0 MMOL/L Chloride Level 102 98-107 MMOL/L Carbon Dioxide Level 24 21-32 MMOL/L Anion Gap 14 5-14 MMOL/L Blood Urea Nitrogen 11 7-18 MG/DL Creatinine 0.78 0.60-1.30 MG/DL Estimat Glomerular Filtration Rate > 60 BUN/Creatinine Ratio 14 Glucose Level 127 H 70-105 MG/DL Calcium Level 9.6 8.5-10.1 MG/DL Corrected Calcium 8.5-10.1 MG/DL Total Bilirubin 0.4 0.1-1.0 MG/DL Aspartate Amino Transf (AST/SGOT) 19 5-34 U/L Alanine Aminotransferase (ALT/SGPT) 74 H 0-55 U/L Alkaline Phosphatase 107 40-136 U/L Total Protein 7.5 6.4-8.2 GM/DL Albumin 4.6 H 3.2-4.5 GM/DL Urine Opiates Screen NEGATIVE NEGATIVE Urine Oxycodone Screen NEGATIVE NEGATIVE Urine Methadone Screen NEGATIVE NEGATIVE Urine Propoxyphene Screen NEGATIVE NEGATIVE Urine Barbiturates Screen NEGATIVE NEGATIVE Ur Tricyclic Antidepressants Screen NEGATIVE NEGATIVE Urine Phencyclidine Screen NEGATIVE NEGATIVE Urine Amphetamines Screen NEGATIVE NEGATIVE Urine Methamphetamines Screen NEGATIVE NEGATIVE Urine Benzodiazepines Screen NEGATIVE NEGATIVE Urine Cocaine Screen NEGATIVE NEGATIVE Urine Cannabinoids Screen NEGATIVE NEGATIVE My Orders Orders - BRUNA CALLOWAY DO Cbc With Automated Diff (09/28/19 14:27) Comprehensive Metabolic Panel (09/28/19 14:27) Drug Screen Stat (Urine) (09/28/19 14:27) Vital Signs/I&O 09/28/19 14:23 Temp 36.4 Pulse 110 Resp 18 B/P (MAP) 136/71 (92) Pulse Ox 97 O2 Delivery Room Air Capillary Refill : Progress Note : Time: 14:39 Progress Note Patient is seen on arrival to his room. No active plan for suicide. Physical exam normal and no clinical signs of intoxication. Requested mental health screening which was refused until the patient underwent urine and lab testing. These labs are ordered only due to screener request and not for any indicated medical evaluation. Patient calm and cooperative. Has been in this ER several times over last couple months and also received screenings at that time. Old labs are reviewed and reveal no abnormalities. 16:30: MH screening pending. Patient has remained calm and cooperative. 17:05: Patient speaking with screener on the phone currently. 18:00: Mental health screen is complete. Patient is cleared for discharge home. He has a safety plan in place according to the mental health screener. They will also call and do checks on him by telephone. He will have a close follow-up appointment this week. Patient is discharged home. Recommended to come back to the ER for any new or persistent thoughts of suicide. I do feel in agreement with the mental health screen. This patient did not express any acute land to hurt himself today. Labs are reviewed and are normal. Departure Impression Primary Impression: Encounter for screening examination for mental health andbehavioral disorders Disposition: 01 HOME, SELF-CARE Condition: Improved BRUNA CALLOWAY DO Sep 28, 2019 14:12
--- NOTE | 2019-09-28 14:20 | NUR ---
Dr[facility] stating patient was medically stable.
--- NOTE | 2019-09-28 14:23 | NUR ---
[facility] mental health notified, stated that it is not possible to medically clear someone without a drug screen and lab work. Dr. Lyons notified.
[2019-09-28 14:38] LABS: HEMATOCRIT 47 % (40-54); HEMOGLOBIN 16.1 G/DL (13.3-17.7); MEAN CORPUSCULAR HEMOGLOBIN 30 PG (25-34); MEAN CORPUSCULAR HGB CONC 34 G/DL (32-36); MEAN CORPUSCULAR VOLUME 88 FL (80-99); MEAN PLATELET VOLUME 9.9 FL (7.4-10.4); PLATELET COUNT 298 10^3/uL (130-400); RED CELL DISTRIBUTION WIDTH 13.7 % (10.0-14.5); WHITE BLOOD COUNT 12.6 10^3/uL (4.3-11.0)
[2019-09-28 14:39] LABS: BASOPHILS % (AUTO) 0 % (0-10); EOSINOPHILS # (AUTO) 0.2 10^3/uL (0.0-0.3); EOSINOPHILS % (AUTO) 1 % (0-10); LYMPHOCYTES # (AUTO) 2.6 X 10^3 (1.0-4.0); LYMPHOCYTES % (AUTO) 21 % (12-44); MONOCYTES % (AUTO) 8 % (0-12); NEUTROPHILS # (AUTO) 8.8 X 10^3 (1.8-7.8); NEUTROPHILS % (AUTO) 70 % (42-75)
[2019-09-28 14:54] LABS: ALANINE AMINOTRANSFERASE 74 U/L (0-55); ALKALINE PHOSPHATASE 107 U/L (40-136); BILIRUBIN,TOTAL 0.4 MG/DL (0.1-1.0); BUN/CREATININE RATIO 14; CALCIUM 9.6 MG/DL (8.5-10.1); CARBON DIOXIDE 24 MMOL/L (21-32); CHLORIDE 102 MMOL/L (98-107); CREATININE SERUM 0.78 MG/DL (0.60-1.30); GFR ESTIMATED > 60; GLUCOSE 127 MG/DL (70-105); POTASSIUM 3.9 MMOL/L (3.6-5.0); SODIUM 140 MMOL/L (135-145); TOTAL PROTEIN 7.5 GM/DL (6.4-8.2)
[2019-09-28 14:55] LABS: ALBUMIN 4.6 GM/DL (3.2-4.5)
[2019-09-28 14:56] LABS: AMPHETAMINE SCREEN, URINE NEGATIVE (NEGATIVE); BARBITURATE SCREEN URINE NEGATIVE (NEGATIVE); BENZODIAZEPINES SCREEN URINE NEGATIVE (NEGATIVE); CANNABINOID SCREEN, URINE NEGATIVE (NEGATIVE); COCAINE SCREEN URINE NEGATIVE (NEGATIVE); METHAMPHETAMINE SCREEN URINE S NEGATIVE (NEGATIVE); OPIATE SCREEN URINE NEGATIVE (NEGATIVE)
[2019-09-28 14:57] LABS: METHADONE STAT NEGATIVE (NEGATIVE); OXYCODONE STAT NEGATIVE (NEGATIVE); PROPOXYPHENE STAT NEGATIVE (NEGATIVE); TRICYCLIC ANTIDEPRESSANTS SCRE NEGATIVE (NEGATIVE)
--- NOTE | 2019-09-28 14:58 | NUR ---
[facility] mental health contacted at this time and notified of patients lab and drug screen being reported. Tracking number [id number]) assigned. Two people ahead of patient at this time. .
--- NOTE | 2019-09-28 17:20 | NUR ---
Zoom meeting started at this time for mental health screen
[2019-09-28 18:07] VITALS: BP 128/68
== END 2019-09-28 18:06 | disposition home or self-care (01) ==
LOC: EDUNIT# 14:11 → ER FS 14:13
DX: Z13.39 Encounter for screening examination for other mental health and behavioral disorders (principal)
CPT/HCPCS: 36415; 80053; 80306; 85025

== ENCOUNTER 2019-12-27 07:36 | Emergency (ER) | payer OTHER ==
[~2019-12-27] VITALS: Ht 187 cm; Wt 125.0 kg
[2019-12-27 07:44] VITALS: BP 150/87
--- NOTE | 2019-12-27 07:57 | ED Psychosocial ---
General Chief Complaint: Psych/Social Disorder Stated Complaint: WANTS MENTAL HEALTH SCREENING Nursing Triage Note: PT REPORTS HE HAS BEEN HAVING ANGER ISSSUES D/T STRRESS AND HAS BEEN PUNCJHING HIS LEGS. Source: patient History of Present Illness Date Seen by Provider: Dec 27, 2019 Time Seen by Provider: 07:50 Initial Comments 24-year-old male presents with complaint that he is angry with himself and has been punching his leg repeatedly. Denies suicidal ideation or plan, denies history of suicide attempt. Denies homicidal ideation or plan. Patient denies history of mental health problems, denies currently seeing a mental health counselor, denies being on any psychiatric medication currently or in the past. He denies drug use. Patient reluctant to answer all questions, rather annoyed with my questions. Allergies and Home Medications Allergies Coded Allergies: strawberry (Unverified Allergy, Unknown, 10/31/14) Home Medications Cefdinir 300 Mg Capsule, 300 MG PO BID Prescribed by: JOCELIN RAMIREZ on 01/20/19210 Ciprofloxacin HCl 500 Mg Tablet, 500 MG PO BID Prescribed by: TERRI NORMAN on 11/03/18 08 Hydrocodone Bit/Acetaminophen 1 Tab Tablet, 1 TAB PO Q4H PRN for PAIN Prescribed by: ANTONETTE BENNETT on 11/01/14 022 Ondansetron 4 Mg Tab.rapdis, 4 MG PO Q6H PRN for NAUSEA/VOMITING Prescribed by: JOCELIN RAMIREZ on 01/20/19210 Patient Home Medication List Home Medication List Reviewed: Yes Review of Systems Constitutional: No dizziness, No fever, No malaise, No weakness Respiratory: no symptoms reported Cardiovascular: no symptoms reported Gastrointestinal: no symptoms reported Psychiatric/Neurological: See HPI, Depressed Past Tqybxfa-Zdvwtq-Wdhtim Hx Past Med/Social Hx: Reviewed Nursing Past Med/Soc Hx Patient Social History Alcohol Use: Denies Use Number of Drinks Today: GG Alcohol Beverage of Choice: Whiskey Recreational Drug Use: No Drug of Choice: Hx-MDMA Type Used: Cigarettes Former Smoker, Quit: Oct 31, 2017 2nd Hand Smoke Exposure: Yes Recent Foreign Travel: No Contact w/Someone Who Travel: No Recent Infectious Disease Expo: No Recent Hopitalizations: No Physical Abuse: No Sexual Abuse: No Mistreated: No Fear: No Immunizations Up To Date Tetanus Booster (TDap): More than 5yrs Seasonal Allergies Seasonal Allergies: No Past Medical History Surgeries: Yes (L wrist; knee) Orthopedic Respiratory: No Cardiac: No Hypertension Neurological: No Reproductive Disorders: No Sexually Transmitted Disease: No Genitourinary: No Gastrointestinal: No Musculoskeletal: Yes Arthritis Endocrine: No HEENT: No Cancer: No Psychosocial: Yes Sleep Difficulties, Anxiety, Bipolar, Schizophrenia, Depression Integumentary: No Blood Disorders: No Physical Exam Vital Signs - First Documented 12/27/19 07:44 Temp 35.9 Pulse 102 Resp 18 B/P (MAP) 150/87 (108) Pulse Ox 98 O2 Delivery Room Air Capillary Refill : Less Than 3 Seconds Height, Weight, BMI Height: 6'1.00" Weight: 250lbs. oz. [id number]; 35.00 BMI Method:Stated General Appearance: WD/WN, no apparent distress Neurologic/Psychiatric: alert, normal mood/affect Appearance/Memory: appropriate appearance Behavior/Eye Contact: cooperative, good eye contact, normal speech Thoughts/Hallucinations: normal thought pattern, no apparent hallucination Skin: normal color, warm/dry Progress/Results/Core Measures Results/Orders Vital Signs/I&O 12/27/19 07:44 Temp 35.9 Pulse 102 Resp 18 B/P (MAP) 150/87 (108) Pulse Ox 98 O2 Delivery Room Air Blood Pressure Mean: 108 Departure Impression Primary Impression: Depression Qualified Codes: F32.9 - Major depressive disorder, single episode, unspecified Disposition: 01 HOME, SELF-CARE Condition: Stable Departure-Patient Inst. Decision time for Depature: 07:55 Referrals: VIANNEY PATEL MD (PCP/Family) Primary Care Physician [facility] Patient Instructions: Depression, Adult (DC) Add. Discharge Instructions: Call your PCP, Dr Patel or [facility] Mental Health to arrange for a follow up evaluation for your anger issues. All discharge instructions reviewed with patient and/or family. Voiced understanding. MARVIN MORAN DO Dec 27, 2019 07:57
== END 2019-12-27 08:00 | disposition home or self-care (01) ==
LOC: EDUNIT# 07:36 → ER FS 07:37
DX: F32.9 Major depressive disorder, single episode, unspecified (principal); I10 Essential (primary) hypertension; Z87.891 Personal history of nicotine dependence; Z77.22 Contact with and (suspected) exposure to environmental tobacco smoke (acute) (chronic); Z86.59 Personal history of other mental and behavioral disorders
CPT/HCPCS: 99283

== ENCOUNTER 2019-12-31 14:14 | Emergency (ER) | payer OTHER ==
[~2019-12-31] VITALS: Ht 187 cm; Wt 125.0 kg
--- NOTE | 2019-12-31 14:25 | NUR ---
Poison Control Center notified and documented under the OD intervention.
[2019-12-31 14:40] LABS: BASOPHILS % (AUTO) 0 % (0-10); EOSINOPHILS % (AUTO) 1 % (0-10); HEMATOCRIT 46 % (40-54); HEMOGLOBIN 15.7 G/DL (13.3-17.7); LYMPHOCYTES % (AUTO) 16 % (12-44); MEAN CORPUSCULAR HEMOGLOBIN 29 PG (25-34); MEAN CORPUSCULAR HGB CONC 34 G/DL (32-36); MEAN CORPUSCULAR VOLUME 85 FL (80-99); MEAN PLATELET VOLUME 10.1 FL (7.4-10.4); MONOCYTES % (AUTO) 5 % (0-12); NEUTROPHILS % (AUTO) 78 % (42-75); PLATELET COUNT 298 10^3/uL (130-400); WHITE BLOOD COUNT 19.1 10^3/uL (4.3-11.0)
[2019-12-31 14:41] LABS: BASOPHILS # (AUTO) 0.1 10^3/uL (0.0-0.1); EOSINOPHILS # (AUTO) 0.2 10^3/uL (0.0-0.3); NEUTROPHILS # (AUTO) 14.8 X 10^3 (1.8-7.8)
[2019-12-31 14:56] LABS: AMPHETAMINE SCREEN, URINE NEGATIVE (NEGATIVE); BARBITURATE SCREEN URINE NEGATIVE (NEGATIVE); BENZODIAZEPINES SCREEN URINE NEGATIVE (NEGATIVE); CANNABINOID SCREEN, URINE NEGATIVE (NEGATIVE); COCAINE SCREEN URINE NEGATIVE (NEGATIVE); METHADONE STAT NEGATIVE (NEGATIVE); METHAMPHETAMINE SCREEN URINE S NEGATIVE (NEGATIVE); OPIATE SCREEN URINE NEGATIVE (NEGATIVE); OXYCODONE STAT NEGATIVE (NEGATIVE); PROPOXYPHENE STAT NEGATIVE (NEGATIVE); TRICYCLIC ANTIDEPRESSANTS SCRE NEGATIVE (NEGATIVE)
[2019-12-31 14:59] LABS: ALANINE AMINOTRANSFERASE 52 U/L (0-55); ALKALINE PHOSPHATASE 106 U/L (40-136); BILIRUBIN,TOTAL 0.5 MG/DL (0.1-1.0); BUN/CREATININE RATIO 14; CALCIUM 9.6 MG/DL (8.5-10.1); CARBON DIOXIDE 22 MMOL/L (21-32); CHLORIDE 102 MMOL/L (98-107); CREATININE SERUM 0.85 MG/DL (0.60-1.30); GFR ESTIMATED > 60; GLUCOSE 98 MG/DL (70-105); POTASSIUM 4.1 MMOL/L (3.6-5.0); SODIUM 141 MMOL/L (135-145)
[2019-12-31 15:00] LABS: ACETAMINOPHEN < 10 UG/ML (10-30); ALBUMIN 4.7 GM/DL (3.2-4.5); SALICYLATE 17.7 MG/DL (5.0-20.0); TOTAL PROTEIN 7.7 GM/DL (6.4-8.2)
[2019-12-31 15:08] LABS: BAND NEUTROPHILS 3 %; BASOPHILS % (MANUAL) 0 %; EOSINOPHILS % (MANUAL) 0 %; LYMPHOCYTES % (MANUAL) 19 %; MONOCYTES % (MANUAL) 10 %; NEUTROPHILS % (MANUAL) 68 %
--- NOTE | 2019-12-31 15:20 | NUR ---
Call to Poison Control Center and update the lab values resulted. Discussed the Salicylate 17.7 value on chemistry machine with values 5-20 normal range. UDS neg, ETOH neg, and Acetaminophen neg. Stable vitals noted with NIBP-138/84, P-78, RR-20, SaO2-97% Rm Air. Negative for Kussmaul breathing, tinnitis, or vomiting. Pt states stomach is upset. Continue to monitor closely advised and order a 2 hr Salicylate level from first and draw sooner if the above sx develop. Typically begin treatment of Bicarb at the level of 35 or sooner if very symptomatic.
--- NOTE | 2019-12-31 15:45 | NUR ---
Pt's father Vince Geiger called and wanted update. Pt was consulted and permission we may talk to either of parents he states. Father states aware the reason to ER was taking too much Aspirin. Updated of consult with poison control and the need to observe and repeat level in 2 hr from first level.
--- NOTE | 2019-12-31 16:02 | ED Psychosocial ---
General Chief Complaint: Overdose Stated Complaint: POSSIBLE OVERDOSE Nursing Triage Note: Pt presents to ED with reported OD, taking intentional OD Aspirin "Adult strength" 20-25 pills at approx 1345. Pt reports "I am upset, bunch of things." Pt states he was seen by his Mental Health Counselor in a fairly brief visit today and reports he did not discuss any of these issues with them. Source: patient, EMS Exam Limitations: no limitations History of Present Illness Date Seen by Provider: Dec 31, 2019 Time Seen by Provider: 15:00 Initial Comments 24-year-old male presents via EMS with complaint of taking 20 aspirin just prior to arrival. Denies suicidal ideation, but took the medication for "multiple reasons". Saw his mental health provider today and states he didn't tell them that he was thinking ....about taking a bunch of pills. Denies any history of suicide attempt or overdose on medication in the past. Denies any chest pain, shortness of air or abdominal pain. Vital signs stable, patient alert and oriented and in no distress. Pt poor historian and not forthcoming w any details of his history. Very short and non-helpful answers to most questioning. Associated Symptoms: denies symptoms, ingestion Allergies and Home Medications Allergies Coded Allergies: strawberry (Unverified Allergy, Unknown, 10/31/14) Home Medications Cefdinir 300 Mg Capsule, 300 MG PO BID Prescribed by: JOCELIN RAMIREZ on 01/20/19210 Ciprofloxacin HCl 500 Mg Tablet, 500 MG PO BID Prescribed by: TERRI NORMAN on 11/03/18 08 Hydrocodone Bit/Acetaminophen 1 Tab Tablet, 1 TAB PO Q4H PRN for PAIN Prescribed by: ANTONETTE BENNETT on 11/01/14 022 Ondansetron 4 Mg Tab.rapdis, 4 MG PO Q6H PRN for NAUSEA/VOMITING Prescribed by: JOCELIN RAMIREZ on 01/20/19210 Patient Home Medication List Home Medication List Reviewed: Yes Review of Systems Constitutional: No dizziness, No fever, No malaise, No weakness EENTM: other (no tinnitus); No hearing loss, No ear pain, No eye pain, No vision loss, No epistaxis, No nose pain, No throat pain, No throat swelling Respiratory: No cough, No short of breath Cardiovascular: No chest pain, No edema, No palpitations, No syncope Gastrointestinal: No abdominal pain, No constipation, No diarrhea, No nausea, No vomiting Musculoskeletal: No back pain, No joint pain Skin: No change in color, No rash Past Zsxszce-Jmjunu-Krmlsz Hx Past Med/Social Hx: Reviewed Nursing Past Med/Soc Hx Patient Social History Alcohol Use: Occasionally Uses Number of Drinks Today: GG Alcohol Beverage of Choice: Whiskey Recreational Drug Use: Yes (Drank 12/25, had quit 6 mo ago) Drug of Choice: Hx-MDMA Smoking Status: Former Smoker Type Used: Cigarettes Former Smoker, Quit: Oct 31, 2017 2nd Hand Smoke Exposure: Yes Recent Foreign Travel: No Contact w/Someone Who Travel: No Recent Infectious Disease Expo: No Recent Hopitalizations: No Physical Abuse: No Sexual Abuse: No Mistreated: No Fear: No Immunizations Up To Date Tetanus Booster (TDap): More than 5yrs Seasonal Allergies Seasonal Allergies: No Past Medical History Surgeries: Yes (L wrist; knee) Orthopedic Respiratory: No Cardiac: No Hypertension Neurological: No Reproductive Disorders: No Sexually Transmitted Disease: No Genitourinary: No Gastrointestinal: No Musculoskeletal: Yes Arthritis Endocrine: No HEENT: No Cancer: No Psychosocial: Yes Sleep Difficulties, Anxiety, Bipolar, Schizophrenia, Depression Integumentary: No Blood Disorders: No Physical Exam Vital Signs - First Documented 12/31/19 14:17 Temp 35.4 Pulse 99 Resp 14 B/P (MAP) 167/98 (121) Pulse Ox 99 O2 Delivery Room Air Capillary Refill : Less Than 3 Seconds Height, Weight, BMI Height: 6'1.00" Weight: 250lbs. oz. [id number]; 35.00 BMI Method:Stated General Appearance: WD/WN, no apparent distress HEENT: PERRL/EOMI, normal ENT inspection Neck: non-tender, supple Respiratory: chest non-tender, lungs clear, normal breath sounds, no respiratory distress, no accessory muscle use Cardiovascular: regular rate, rhythm, no edema, no JVD, no murmur Gastrointestinal: normal bowel sounds, non tender, soft, no organomegaly, no pulsatile mass Extremities: normal range of motion, non-tender, normal inspection, no pedal edema Neurologic/Psychiatric: life skills educator II-XII nml as tested, no motor/sensory deficits, alert, normal mood/affect, oriented x 3 Skin: normal color, warm/dry Progress/Results/Core Measures Results/Orders Lab Results Laboratory Tests Test 12/31/19 14:20 12/31/19 14:28 12/31/19 16:22 12/31/19 17:10 Range/Units Urine Opiates Screen NEGATIVE NEGATIVE Urine Oxycodone Screen NEGATIVE NEGATIVE Urine Methadone Screen NEGATIVE NEGATIVE Urine Propoxyphene Screen NEGATIVE NEGATIVE Urine Barbiturates Screen NEGATIVE NEGATIVE Ur Tricyclic Antidepressants Screen NEGATIVE NEGATIVE Urine Phencyclidine Screen NEGATIVE NEGATIVE Urine Amphetamines Screen NEGATIVE NEGATIVE Urine Methamphetamines Screen NEGATIVE NEGATIVE Urine Benzodiazepines Screen NEGATIVE NEGATIVE Urine Cocaine Screen NEGATIVE NEGATIVE Urine Cannabinoids Screen NEGATIVE NEGATIVE White Blood Count 19.1 H 4.3-11.0 10^3/uL Red Blood Count 5.36 4.35-5.85 10^6/uL Hemoglobin 15.7 13.3-17.7 G/DL Hematocrit 46 40-54 % Mean Corpuscular Volume 85 80-99 FL Mean Corpuscular Hemoglobin 29 25-34 PG Mean Corpuscular Hemoglobin Concent 34 32-36 G/DL Red Cell Distribution Width 13.1 10.0-14.5 % Platelet Count 298 130-400 10^3/uL Mean Platelet Volume 10.1 7.4-10.4 FL Immature Granulocyte % (Auto) 0 % Neutrophils (%) (Auto) 78 H 42-75 % Lymphocytes (%) (Auto) 16 12-44 % Monocytes (%) (Auto) 5 0-12 % Eosinophils (%) (Auto) 1 0-10 % Basophils (%) (Auto) 0 0-10 % Neutrophils # (Auto) 14.8 H 1.8-7.8 X 10^3 Lymphocytes # (Auto) 3.0 1.0-4.0 X 10^3 Monocytes # (Auto) 1.0 0.0-1.0 X 10^3 Eosinophils # (Auto) 0.2 0.0-0.3 10^3/uL Basophils # (Auto) 0.1 0.0-0.1 10^3/uL Immature Granulocyte # (Auto) 0.1 0.0-0.1 10^3/uL Neutrophils % (Manual) 68 % Lymphocytes % (Manual) 19 % Monocytes % (Manual) 10 % Eosinophils % (Manual) 0 % Basophils % (Manual) 0 % Band Neutrophils 3 % Sodium Level 141 142 135-145 MMOL/L Potassium Level 4.1 4.1 3.6-5.0 MMOL/L Chloride Level 102 104 98-107 MMOL/L Carbon Dioxide Level 22 23 21-32 MMOL/L Anion Gap 17 H 15 H 5-14 MMOL/L Blood Urea Nitrogen 12 11 7-18 MG/DL Creatinine 0.85 0.86 0.60-1.30 MG/DL Estimat Glomerular Filtration Rate > 60 > 60 BUN/Creatinine Ratio 14 13 Glucose Level 98 94 70-105 MG/DL Calcium Level 9.6 9.3 8.5-10.1 MG/DL Corrected Calcium 8.5-10.1 MG/DL Total Bilirubin 0.5 0.1-1.0 MG/DL Aspartate Amino Transf (AST/SGOT) 17 5-34 U/L Alanine Aminotransferase (ALT/SGPT) 52 0-55 U/L Alkaline Phosphatase 106 40-136 U/L Total Protein 7.7 6.4-8.2 GM/DL Albumin 4.7 H 3.2-4.5 GM/DL Salicylates Level 17.7 29.7 H 5.0-20.0 MG/DL Acetaminophen Level < 10 L 10-30 UG/ML Serum Alcohol < 10 <10 MG/DL Blood Gas Puncture Site LT RAD Blood Gas Patient Temperature 36.8 Arterial Blood pH 7.54 H 7.37-7.43 Arterial Blood Partial Pressure CO2 24 L 35-45 MMHG Arterial Blood Partial Pressure O2 143 H 79-93 MMHG Arterial Blood HCO3 21 L 23-27 MMOL/L Arterial Blood Total CO2 21.2 21.0-31.0 MMOL/L Arterial Blood Oxygen Saturation 99 94-100 % Arterial Blood Base Excess -0.6 -2.5-2.5 MMOL/L Kelivn Test YES-POS Blood Gas Ventilator Setting NO Blood Gas Inspired Oxygen ROOM AIR Test 12/31/19 18:30 Range/Units Salicylates Level 29.4 H 5.0-20.0 MG/DL My Orders Orders - ROVENSTINE,MARVIN L DO Acetaminophen (12/31/19 14:20) Salicylate (12/31/19 14:20) Alcohol (12/31/19 14:20) Cbc With Automated Diff (12/31/19 14:20) Comprehensive Metabolic Panel (12/31/19 14:20) Drug Screen Stat (Urine) (12/31/19 14:20) Manual Differential (12/31/19 14:28) Salicylate (12/31/19 16:28) Charcoal Activated Aqueous (Actidose Aqu (12/31/19 16:15) Arterial Blood Gas (12/31/19 16:30) Basic Metabolic Panel (12/31/19 16:15) Sodium Bicarbonate 8.4% Syr (Sodium Bica (12/31/19 18:30) 1/2 Ns Iv Solution (0.45% Sodium Chlorid (12/31/19 18:30) Salicylate (12/31/19 18:30) D5w 1000 Ml Iv Solution (Dextrose 5% Tarun (12/31/19 18:36) D5w 1000 Ml Iv Solution (Dextrose 5% Tarun (12/31/19 19:00) Medications Given in ED Current Medications Medications Dose Ordered Sig/Owen Route Start Time Stop Time Status Last Admin Dose Admin Charcoal 125 gm ONCE ONCE PO 12/31/19 16:15 12/31/19 16:16 DC 12/31/19 16:51 50 GM Vital Signs/I&O 12/31/19 12/31/19 14:17 20:00 Temp 35.4 36.1 Pulse 99 81 Resp 14 21 B/P (MAP) 167/98 (121) 123/81 (121) Pulse Ox 99 98 O2 Delivery Room Air Room Air Blood Pressure Mean: 121 Progress Progress Note : Progress Note 1600- Initial salicylate level of 17, which is in normal range and nontoxic. Communication with poison control and process. Patient not displaying any signs clinically of toxicity and is stable with normal vital signs and normal respirations. 1720- elevation of repeat salicylate level at 29. Patient just given 50 g of activated charcoal just after this level was drawn. Still not exhibiting any clinical signs of salicylate overdose. Called to admit patient to [facility], but Dr. Kramer declined as they do not have nephrology services which may be necessary. Called both [facility] in [place] and both are active [place] without any availability. Called [facility] and they were going to accept the patient, but state they would be delayed in getting a bed up to 24 hours. Called [facility] and they have accepted for transfer to [facility]. [facility] fumbled the transfer to "south" and gave his bed away. Pt then accepted to [facility] which caused significant delay. Local EMS ([facility]) would not assist w transportation, so had to enlist support of outlying community, which also caused further delay. Meanwhile pt stable, but salicylate levels had gone up significantly from initial to subsequent and in coordination w Poison Ctrl, decided to start a Bicarb drip as ride to [facility] would be an hour. Due to all the delays a third salicylate was checked just prior to departure and it remained steady, not elevated. Good sign that he had likely peaked and would not require further intervention (dialysis) other than monitoring and following labs and clinical condition. Nurse communicated w family regarding what all had transpired and decisions which led to a far away transfer. Departure Impression Primary Impression: Drug overdose Qualified Codes: T50.902A - Poisoning by unspecified drugs, medicaments and biological substances, intentional self-harm, initial encounter Disposition: XFER SHT-TRM HOSP Condition: Stable Transfer Transfer Reason: Exceeds level of care Time Spoke to Accepting Phy: 17:15 Transfer Progress Notes spoke to Dr Lon Kevin and he accepts for transfer of pt to [facility]...eventually changed to [facility] Method of Transfer: EMS Departure-Patient Inst. Referrals: SELF,VIANENY CAPPS (PCP/Family) Primary Care Physician MARVIN MORAN DO Dec 31, 2019 16:02
[2019-12-31] MEDS ORDERED: CHARCOAL/AQUEOUS 50 GM/240 ML BTL PO ONE (16:15)
[2019-12-31 16:47] LABS: BUN/CREATININE RATIO 13; CALCIUM 9.3 MG/DL (8.5-10.1); CARBON DIOXIDE 23 MMOL/L (21-32); CHLORIDE 104 MMOL/L (98-107); CREATININE SERUM 0.86 MG/DL (0.60-1.30); GFR ESTIMATED > 60; GLUCOSE 94 MG/DL (70-105); POTASSIUM 4.1 MMOL/L (3.6-5.0); SODIUM 142 MMOL/L (135-145)
--- NOTE | 2019-12-31 16:51 | NUR ---
Pt given 1 bottle activated charcoal to drink 50 GM/ 240 ML and becomes upset stomach without emesis. Dr Taylor ok'd hold on further 2 bottles.
--- NOTE | 2019-12-31 17:10 | NUR ---
Notified Dr Taylor of 29.7 Salicylate level.
--- NOTE | 2019-12-31 17:15 | NUR ---
Alerted [facility] of transfer being arranged for distance of [place]. [facility] on diversion.
[2019-12-31 17:16] LABS: ABG BASE EXCESS -0.6 MMOL/L (-2.5-2.5); ABG OXYGEN SATURATION 99 % (94-100); ABG PCO2 24 MMHG (35-45); ABG PH 7.54 (7.37-7.43); ABG PO2 143 MMHG (79-93); ABG TCO2 21.2 MMOL/L (21.0-31.0); ALLENS TEST YES-POS; INSPIRED O2 ROOM AIR; PATIENT TEMP 36.8; VENTILATOR NO
--- NOTE | 2019-12-31 17:16 | NUR ---
Updated Vince Geiger, patients dad, about patient's labs and plan to be admitted to [facility] in [place].
--- NOTE | 2019-12-31 17:20 | NUR ---
ABG's drawn to L wrist as prior draw appears venous.
--- NOTE | 2019-12-31 17:30 | NUR ---
Pt's results given to Poison Control along with ABG's and electrolytes/renal function labs. Assessments to include hearing good bowel sounds and treating any GI disturbance utilizing antiemetics as needed. The ABG's have the plan given to have Na Bicarb readily available and undoubtly being on a drip during transfer. Pt is alert and oriented, no emesis from arrival time. Still uncertain if ASA is Enteric Coated. It is appropriate to plan the transfer to higher level tertiary care.
--- NOTE | 2019-12-31 17:56 | NUR ---
[facility] is accepting facility now as [facility] has now given the bed to pt within the hospital. Dr is notified, patient is notified.
--- NOTE | 2019-12-31 18:02 | NUR ---
Report to Adela JANG at [facility] for Bed 4073. Georgina JANG will be the next shift RN. .
[2019-12-31] MEDS ORDERED: 1/2 NS IV SOLUTION 1,000 ML IV ONE (18:30)
[2019-12-31] MEDS ORDERED: SODIUM BICARB 8.4% 50 MEQ/50 ML (ABBOTT) SYR ONE (18:30)
[2019-12-31] MEDS ORDERED: D5W 1000 ML IV SOLUTION 1,000 ML ONE (18:36)
[2019-12-31] MEDS ORDERED: D5W 1000 ML IV SOLUTION 1,000 ML IV SCH (19:00)
--- NOTE | 2019-12-31 19:15 | NUR ---
Report given to the Transfer Center of [facility] that ETA is awaiting transfer crew from [facility] as called by [facility] staff.
--- NOTE | 2019-12-31 19:30 | NUR ---
Updated the Poison Control Center of current Salicylate level and change of location to [facility] location.
[2019-12-31 20:00] VITALS: BP 123/81
--- NOTE | 2019-12-31 20:00 | NUR ---
[facility]is[facility] from [place] arriving, report given. Pt transferred to [facility] at this time. Condition stable. Remains on a D5W 1 Liter with 2 amps Bicarb to be 100 mEq per liter rate 125 ml/hr. See transfer form and discharge summary.
== END 2019-12-31 20:00 | disposition short-term general hospital (02) ==
LOC: EDUNIT# 14:14 → ER FS 14:15
DX: T39.012A Poisoning by aspirin, intentional self-harm, initial encounter (principal); I10 Essential (primary) hypertension; Z87.891 Personal history of nicotine dependence; Z77.22 Contact with and (suspected) exposure to environmental tobacco smoke (acute) (chronic)
CPT/HCPCS: 36415; 80048; 80053; 80306; 82805; 85007; 85027; 99285; G0480 ×3; 80320; 80329

== ENCOUNTER 2020-10-10 23:56 | Emergency (ER) | payer SELFPAY ==
[~2020-10-10] VITALS: Ht 185.4 cm; Wt 127.3 kg
[~2020-10-10 23:56] MED LIST changes: -CIPR500T4 PO; +CIPR500T5 PO
--- NOTE | 2020-10-11 00:17 | ED Psychosocial ---
General Chief Complaint: Psych/Social Disorder Stated Complaint: MENTAL EVALUATION Source: patient Exam Limitations: no limitations History of Present Illness Date Seen by Provider: Oct 10, 2020 Time Seen by Provider: 23:55 Initial Comments Patient is a 25-year-old male with history of chronic psychosis who presents with complaints of acute suicidal and homicidal ideation. Patient states he has had thoughts of harming himself and others for the least the past week. Of note, patient has been evaluated in this emergency department years time for similar episodes. Patient also has also been cutting his left arm as needed orders superficial abrasions with various stages of healing over his left arm. Patient denies specific thoughts or plan or intent to harm himself or others. No hallucinations delusions or paranoia. No command hallucinations. Denies other acute medical symptoms or complaints. Denies drugs or alcohol. Timing/Duration: week, changing over time, intermittent Severity: moderate Associated Symptoms: other Allergies and Home Medications Allergies Coded Allergies: strawberry (Unverified Allergy, Unknown, 10/31/14) Home Medications Unable to Obtain Active Prescriptions or Reported Meds Patient Home Medication List Home Medication List Reviewed: Yes Review of Systems Constitutional: see HPI EENTM: see HPI Respiratory: see HPI Cardiovascular: see HPI Gastrointestinal: see HPI Musculoskeletal: see HPI Skin: see HPI Psychiatric/Neurological: See HPI All Other Systems Reviewed Negative Unless Noted: Yes Past Cxcwmnx-Hvopqh-Xilanc Hx Patient Social History Tobacco Use?: Yes Tobacco type used: Cigarettes Smoking Status: Current Everyday Smoker Substance use?: No Alcohol Use?: Yes Alcohol Frequency: Once in a while Pt feels they are or have been: No Immunizations Up To Date Tetanus Booster (TDap): More than 5yrs Seasonal Allergies Seasonal Allergies: No Past Medical History Surgery/Hospitalization HX: numerous mental health visits/admits: Hx SI/HI, Overdose, Depression Surgeries: Yes (L wrist; knee) Orthopedic Respiratory: No Cardiac: No Hypertension Neurological: No Reproductive Disorders: No Sexually Transmitted Disease: No Genitourinary: No Gastrointestinal: No Musculoskeletal: Yes Arthritis Endocrine: No HEENT: No Cancer: No Psychosocial: Yes Sleep Difficulties, Anxiety, Bipolar, Schizophrenia, Depression Integumentary: No Blood Disorders: No Physical Exam Vital Signs - First Documented 10/11/20 00:00 Temp 36.4 Pulse 109 Resp 16 B/P (MAP) 125/90 (102) Pulse Ox 98 O2 Delivery Room Air Capillary Refill : Height, Weight, BMI Height: 6'1.00" Weight: 250lbs. oz. [id number]; 35.00 BMI Method:Stated General Appearance: WD/WN, no apparent distress HEENT: PERRL/EOMI, normal ENT inspection Neck: normal inspection Respiratory: lungs clear, normal breath sounds Cardiovascular: normal peripheral pulses, regular rate, rhythm Gastrointestinal: soft Extremities: normal range of motion, other (Patient with numerous superficial abrasions on various levels of healing involving left forearm and upper e xtremity and right forearm. No active bleeding) Neurologic/Psychiatric: alert, oriented x 3, depressed affect, other (Suicidal and homicidal ideation. Patient does not appear to be attending internal stimuli) Appearance/Memory: disheveled, impaired insight, impaired remote memory Behavior/Eye Contact: cooperative, avoids eye contact Thoughts/Hallucinations: no apparent hallucination Skin: other Lymphatic: other Progress/Results/Core Measures Results/Orders Lab Results Laboratory Tests Test 10/11/20 00:06 10/11/20 00:15 10/11/20 00:50 Range/Units Urine Opiates Screen NEGATIVE NEGATIVE Urine Oxycodone Screen NEGATIVE NEGATIVE Urine Methadone Screen NEGATIVE NEGATIVE Urine Propoxyphene Screen NEGATIVE NEGATIVE Urine Barbiturates Screen NEGATIVE NEGATIVE Ur Tricyclic Antidepressants Screen NEGATIVE NEGATIVE Urine Phencyclidine Screen NEGATIVE NEGATIVE Urine Amphetamines Screen NEGATIVE NEGATIVE Urine Methamphetamines Screen NEGATIVE NEGATIVE Urine Benzodiazepines Screen NEGATIVE NEGATIVE Urine Cocaine Screen NEGATIVE NEGATIVE Urine Cannabinoids Screen NEGATIVE NEGATIVE White Blood Count 13.6 H 4.3-11.0 10^3/uL Red Blood Count 4.82 4.35-5.85 10^6/uL Hemoglobin 14.5 13.3-17.7 G/DL Hematocrit 42 40-54 % Mean Corpuscular Volume 87 80-99 FL Mean Corpuscular Hemoglobin 30 25-34 PG Mean Corpuscular Hemoglobin Concent 35 32-36 G/DL Red Cell Distribution Width 13.1 10.0-14.5 % Platelet Count 287 130-400 10^3/uL Mean Platelet Volume 9.7 7.4-10.4 FL Immature Granulocyte % (Auto) 0 % Neutrophils (%) (Auto) 67 42-75 % Lymphocytes (%) (Auto) 23 12-44 % Monocytes (%) (Auto) 8 0-12 % Eosinophils (%) (Auto) 1 0-10 % Basophils (%) (Auto) 0 0-10 % Neutrophils # (Auto) 9.1 H 1.8-7.8 X 10^3 Lymphocytes # (Auto) 3.2 1.0-4.0 X 10^3 Monocytes # (Auto) 1.0 0.0-1.0 X 10^3 Eosinophils # (Auto) 0.1 0.0-0.3 10^3/uL Basophils # (Auto) 0.0 0.0-0.1 10^3/uL Immature Granulocyte # (Auto) 0.1 0.0-0.1 10^3/uL Neutrophils % (Manual) 76 % Lymphocytes % (Manual) 20 % Monocytes % (Manual) 3 % Eosinophils % (Manual) 1 % Platelet Estimate ADEQUATE Blood Morphology Comment NORMAL Sodium Level 139 135-145 MMOL/L Potassium Level 3.8 3.6-5.0 MMOL/L Chloride Level 104 98-107 MMOL/L Carbon Dioxide Level 21 21-32 MMOL/L Anion Gap 14 5-14 MMOL/L Blood Urea Nitrogen 11 7-18 MG/DL Creatinine 0.78 0.60-1.30 MG/DL Estimat Glomerular Filtration Rate > 60 BUN/Creatinine Ratio 14 Glucose Level 112 H 70-105 MG/DL Calcium Level 9.2 8.5-10.1 MG/DL Corrected Calcium 8.8 8.5-10.1 MG/DL Total Bilirubin 0.2 0.1-1.0 MG/DL Aspartate Amino Transf (AST/SGOT) 21 5-34 U/L Alanine Aminotransferase (ALT/SGPT) 64 H 0-55 U/L Alkaline Phosphatase 104 40-136 U/L Total Protein 7.1 6.4-8.2 GM/DL Albumin 4.5 3.2-4.5 GM/DL Serum Alcohol < 10 <10 MG/DL SARS-CoV-2 RNA (RT-PCR) Not Detected Not Detecte My Orders Quentin - PAPITO JORGENSEN DO Cbc And Manual Diff (10/11/20 00:13) Comprehensive Metabolic Panel (10/11/20 00:13) Drug Screen Stat (Urine) (10/11/20 00:13) Alcohol (10/11/20 00:13) Continuous Ekg Monitoring (10/11/20 00:13) Covid 19 Inhouse Test (10/11/20 00:45) Cephalexin Capsule (Keflex Capsule) (10/11/20 05:00) Vital Signs/I&O 10/11/20 00:00 Temp 36.4 Pulse 109 Resp 16 B/P (MAP) 125/90 (102) Pulse Ox 98 O2 Delivery Room Air Departure Communication (Admissions) Patient is medically stable. Given oral antibiotic due to multiple abrasions. Awaiting psychiatric screen for treatment plan. Recommendations are for home discharge with safety plan as patient does not have an active plan to harm himself. He states he has no such intention and only cuts himself when he is upset. He is agreeable to follow-up with his counselor later today. Return precautions reviewed. Will arrange for discharge from the ED with family members to supervise patient till his appointment later this morning. Impression Primary Impression: Mood disorder Additional Impressions: Abrasion of arm, left Abrasion of arm, right Self-mutilation Disposition: 01 HOME, SELF-CARE Condition: Stable Departure-Patient Inst. Decision time for Depature: 05:15 Referrals: VIANNEY MARTÍNEZ MD (PCP/Family) Primary Care Physician Patient Instructions: Self-Harm (DC), Skin Abrasions Add. Discharge Instructions: Please continue antibiotics and home medications and home safety plan.. Follow- up with your counselor this morning at 11 AM as scheduled. Return to the ED if new or concerning symptoms. All discharge instructions reviewed with patient and/or family. Voiced understanding. Scripts Cephalexin (Cephalexin) 500 Mg Tablet 500 MG PO TID, #21 TAB Prov: PAPITO JORGENSEN DO 10/11/20 PAPITO JORGENSEN DO Oct 11, 2020 00:17
[2020-10-11 00:33] LABS: BASOPHILS % (AUTO) 0 % (0-10); EOSINOPHILS % (AUTO) 1 % (0-10); HEMATOCRIT 42 % (40-54); HEMOGLOBIN 14.5 G/DL (13.3-17.7); LYMPHOCYTES # (AUTO) 3.2 X 10^3 (1.0-4.0); LYMPHOCYTES % (AUTO) 23 % (12-44); MEAN CORPUSCULAR HEMOGLOBIN 30 PG (25-34); MEAN CORPUSCULAR HGB CONC 35 G/DL (32-36); MEAN CORPUSCULAR VOLUME 87 FL (80-99); MEAN PLATELET VOLUME 9.7 FL (7.4-10.4); MONOCYTES % (AUTO) 8 % (0-12); NEUTROPHILS # (AUTO) 9.1 X 10^3 (1.8-7.8); NEUTROPHILS % (AUTO) 67 % (42-75); PLATELET COUNT 287 10^3/uL (130-400); WHITE BLOOD COUNT 13.6 10^3/uL (4.3-11.0)
[2020-10-11 00:34] LABS: EOSINOPHILS # (AUTO) 0.1 10^3/uL (0.0-0.3)
[2020-10-11 00:47] LABS: NEUTROPHILS % (MANUAL) 76 %
[2020-10-11 00:48] LABS: EOSINOPHILS % (MANUAL) 1 %; LYMPHOCYTES % (MANUAL) 20 %; MONOCYTES % (MANUAL) 3 %; PLATELET ESTIMATE ADEQUATE; RBC MORPH NORMAL
[2020-10-11 00:50] LABS: AMPHETAMINE SCREEN, URINE NEGATIVE (NEGATIVE); BARBITURATE SCREEN URINE NEGATIVE (NEGATIVE); BENZODIAZEPINES SCREEN URINE NEGATIVE (NEGATIVE); CANNABINOID SCREEN, URINE NEGATIVE (NEGATIVE); COCAINE SCREEN URINE NEGATIVE (NEGATIVE); METHADONE STAT NEGATIVE (NEGATIVE); METHAMPHETAMINE SCREEN URINE S NEGATIVE (NEGATIVE); OPIATE SCREEN URINE NEGATIVE (NEGATIVE); OXYCODONE STAT NEGATIVE (NEGATIVE); PROPOXYPHENE STAT NEGATIVE (NEGATIVE); TRICYCLIC ANTIDEPRESSANTS SCRE NEGATIVE (NEGATIVE)
[2020-10-11 00:52] LABS: ALANINE AMINOTRANSFERASE 64 U/L (0-55); ALBUMIN 4.5 GM/DL (3.2-4.5); ALKALINE PHOSPHATASE 104 U/L (40-136); BILIRUBIN,TOTAL 0.2 MG/DL (0.1-1.0); BUN/CREATININE RATIO 14; CALCIUM 9.2 MG/DL (8.5-10.1); CARBON DIOXIDE 21 MMOL/L (21-32); CHLORIDE 104 MMOL/L (98-107); CREATININE SERUM 0.78 MG/DL (0.60-1.30); GFR ESTIMATED > 60; GLUCOSE 112 MG/DL (70-105); POTASSIUM 3.8 MMOL/L (3.6-5.0); SODIUM 139 MMOL/L (135-145); TOTAL PROTEIN 7.1 GM/DL (6.4-8.2)
[2020-10-11] MEDS ORDERED: RISP0.5T65 PO (01:22)
[2020-10-11] MEDS ORDERED: CEPHALEXIN 250 MG (KEFLEX) CAP PO ONE (05:00)
[2020-10-11] MEDS ORDERED: CEPH500T PO (05:17)
[2020-10-11 05:25] VITALS: BP 124/88
== END 2020-10-11 05:25 | disposition home or self-care (01) ==
LOC: EDUNIT# 23:56 → ER FS 23:59
DX: S40.812A Abrasion of left upper arm, initial encounter (principal); S40.811A Abrasion of right upper arm, initial encounter; F39 Unspecified mood [affective] disorder; I10 Essential (primary) hypertension; F17.210 Nicotine dependence, cigarettes, uncomplicated; Z20.822 Contact with and (suspected) exposure to COVID-19; X78.8XXA Intentional self-harm by other sharp object, initial encounter
CPT/HCPCS: 36415; 80053; 80306; 85007; 85027; 87636; 93005; 99283; G0480; 80320

== ENCOUNTER 2021-07-11 19:37 | Emergency (ER) | payer SELFPAY ==
[~2021-07-11] VITALS: Ht 185 cm; Wt 139.3 kg
[~2021-07-11 19:37] MED LIST changes: +CEPH500T PO; +RISP0.5T65 PO
[2021-07-11 19:40] VITALS: BP 154/89
[2021-07-11 20:04] LABS: BASOPHILS # (AUTO) 0.1 10^3/uL (0.0-0.1); BASOPHILS % (AUTO) 0 % (0-10); EOSINOPHILS # (AUTO) 0.2 10^3/uL (0.0-0.3); EOSINOPHILS % (AUTO) 2 % (0-10); HEMATOCRIT 41 % (40-54); HEMOGLOBIN 14.1 g/dL (13.3-17.7); LYMPHOCYTES # (AUTO) 3.1 10^3/uL (1.0-4.0); LYMPHOCYTES % (AUTO) 22 % (12-44); MEAN CORPUSCULAR HEMOGLOBIN 30 pg (25-34); MEAN CORPUSCULAR HGB CONC 35 g/dL (32-36); MEAN CORPUSCULAR VOLUME 87 fL (80-99); MEAN PLATELET VOLUME 10.2 fL (9.0-12.2); MONOCYTES # (AUTO) 0.8 10^3/uL (0.0-1.0); MONOCYTES % (AUTO) 6 % (0-12); NEUTROPHILS # (AUTO) 9.8 10^3/uL (1.8-7.8); NEUTROPHILS % (AUTO) 70 % (42-75); PLATELET COUNT 265 10^3/uL (130-400)
[2021-07-11 20:06] LABS: BILIRUBIN,URINE NEGATIVE (NEGATIVE); CLARITY,URINE CLEAR; COLOR,URINE YELLOW; GLUCOSE, URINE (UA) NEGATIVE (NEGATIVE); KETONES,URINE NEGATIVE (NEGATIVE); LEUKOCYTE ESTERASE ,URINE NEGATIVE (NEGATIVE); NITRITE,URINE NEGATIVE (NEGATIVE); PROTEIN,URINE NEGATIVE (NEGATIVE)
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
[2021-07-11 20:24] LABS: BACTERIA,URINE NEGATIVE /HPF; RBC,URINE 0-2 /HPF; SQUAMOUS EPITHELIAL CELL,UR 0-2 /HPF; WBC,URINE RARE /HPF
[2021-07-11 20:25] LABS: AMPHETAMINE SCREEN, URINE NEGATIVE (NEGATIVE); BARBITURATE SCREEN URINE NEGATIVE (NEGATIVE); BENZODIAZEPINES SCREEN URINE NEGATIVE (NEGATIVE); CANNABINOID SCREEN, URINE POSITIVE (NEGATIVE); COCAINE SCREEN URINE NEGATIVE (NEGATIVE); METHADONE STAT NEGATIVE (NEGATIVE); METHAMPHETAMINE SCREEN URINE S NEGATIVE (NEGATIVE); OPIATE SCREEN URINE NEGATIVE (NEGATIVE); OXYCODONE STAT NEGATIVE (NEGATIVE); PROPOXYPHENE STAT NEGATIVE (NEGATIVE); TRICYCLIC ANTIDEPRESSANTS SCRE NEGATIVE (NEGATIVE)
[2021-07-11 20:25] LABS: ATYPICAL LYMPHOCYTES 5 %; BAND NEUTROPHILS 2 %; BASOPHILS % (MANUAL) 0 %; EOSINOPHILS % (MANUAL) 2 %; LYMPHOCYTES % (MANUAL) 18 %; MONOCYTES % (MANUAL) 4 %; NEUTROPHILS % (MANUAL) 69 %
[2021-07-11 20:26] LABS: CARBON DIOXIDE 22 MMOL/L (21-32); CHLORIDE 100 MMOL/L (98-107); PLATELET ESTIMATE NORMAL; RBC MORPH NORMAL; SODIUM 137 MMOL/L (135-145)
[2021-07-11 20:27] LABS: ACETAMINOPHEN < 10 UG/ML (10-30); ALANINE AMINOTRANSFERASE 80 U/L (0-55); ALBUMIN 4.5 GM/DL (3.2-4.5); ALKALINE PHOSPHATASE 93 U/L (40-136); BILIRUBIN,TOTAL 0.3 MG/DL (0.1-1.0); BUN/CREATININE RATIO 14; CREATININE SERUM 0.83 MG/DL (0.60-1.30); GFR ESTIMATED 123; GLUCOSE 124 MG/DL (70-105); SALICYLATE 0.6 MG/DL (5.0-20.0); TOTAL PROTEIN 7.1 GM/DL (6.4-8.2)
== END 2021-07-11 23:00 | disposition home or self-care (01) ==
LOC: EDUNIT# 19:37 → ER FS 19:38
DX: R45.850 Homicidal ideations (principal); F20.9 Schizophrenia, unspecified; F12.10 Cannabis abuse, uncomplicated; Z20.822 Contact with and (suspected) exposure to COVID-19
CPT/HCPCS: 36415; 80053; 80306; 81000; 85007; 85027; 87636; 93005; 99283; G0480 ×3; 80320; 80329

== ENCOUNTER 2021-11-02 12:31 | Emergency (ER) | payer SELFPAY ==
[~2021-11-02] VITALS: Ht 187.9 cm; Wt 125.1 kg
[2021-11-02] MEDS ORDERED: LACTATED RINGERS 1,000 ML IV STA (12:43)
[2021-11-02] MEDS ORDERED: ACETAMINOPHEN 500 MG TAB (TYLENOL) PO ONE (12:45)
[2021-11-02] MEDS ORDERED: ONDANSETRON 4 MG/2 ML (SDV) Z0FRAN IVP ONE (12:45)
--- NOTE | 2021-11-02 12:49 | ED Psychosocial ---
General Chief Complaint: Substance Abuse Stated Complaint: METH USE; VOMITING, SWEATING; LETHARGY Source: patient Exam Limitations: no limitations History of Present Illness Date Seen by Provider: Nov 02, 2021 Time Seen by Provider: 12:34 Initial Comments 26-year-old male with past medical history of polysubstance use disorder coming in feeling like he is crashing from meth. He snorted meth roughly 3 days ago, was up a couple days in a row, finally crashed last night and was sleeping. Says he feels extremely tired, "lethargic" and feels like it is difficult to eat or drink anything. He is having some nausea but has not had any vomiting. Had an episode of nonbloody diarrhea as well. Denies any pain anywhere. Feels warm but does not believe he has a fever. Otherwise denies any other cough or infectious symptoms. Has not been around anyone sick that he knows of. Denies any thoughts to harm himself or harm anyone else Allergies and Home Medications Allergies Coded Allergies: strawberry (Unverified Allergy, Unknown, 10/31/14) Patient Home Medication List Home Medication List Reviewed: Yes Cephalexin (Cephalexin) 500 Mg Tablet, 500 MG PO TID Prescribed by: PAPITO JORGENSEN on 10/11/20 0517 Review of Systems Constitutional: No fever EENTM: No blurred vision Respiratory: No cough Gastrointestinal: No abdominal pain Genitourinary: no symptoms reported Musculoskeletal: no symptoms reported Skin: no symptoms reported Psychiatric/Neurological: See HPI All Other Systems Reviewed Negative Unless Noted: Yes Past Kuoxvra-Efrpmb-Btwqva Hx Patient Social History Substance use?: Yes Substance type: Methamphetamine Immunizations Up To Date Tetanus Booster (TDap): More than 5yrs Second COVID19 Vaccination Jc: Reports but unable to recall Seasonal Allergies Seasonal Allergies: No Past Medical History Surgery/Hospitalization HX: numerous mental health visits/admits: Hx SI/HI, Overdose, Depression Surgeries: Yes (L wrist; knee) Orthopedic Respiratory: No Cardiac: No Hypertension Neurological: No Reproductive Disorders: No Sexually Transmitted Disease: No Genitourinary: No Gastrointestinal: No Musculoskeletal: Yes Arthritis Endocrine: No HEENT: No Cancer: No Psychosocial: Yes Sleep Difficulties, Anxiety, Bipolar, Schizophrenia, Depression Integumentary: No Blood Disorders: No Physical Exam Vital Signs - First Documented 8/3/22 12:45 Temp 35.4 Pulse 86 Resp 18 B/P (MAP) 138/97 (111) Pulse Ox 97 O2 Delivery Room Air Capillary Refill : Height, Weight, BMI Height: 6'1.00" Weight: 250lbs. oz. 113.687015pa; 40.00 BMI Method:Stated General Appearance: WD/WN, no apparent distress HEENT: PERRL/EOMI, normal ENT inspection, pharynx normal Neck: non-tender, full range of motion, supple, normal inspection Respiratory: chest non-tender, lungs clear, normal breath sounds, no respiratory distress, no accessory muscle use Cardiovascular: regular rate, rhythm, no edema, no murmur Gastrointestinal: normal bowel sounds, non tender, soft; No distended, No guarding, No rebound Extremities: normal range of motion, non-tender, normal inspection, no pedal edema, no calf tenderness, normal capillary refill Neurologic/Psychiatric: no motor/sensory deficits, alert, normal mood/affect Appearance/Memory: disheveled Behavior/Eye Contact: cooperative, good eye contact, normal speech; No increased rate of speech Thoughts/Hallucinations: normal thought pattern, no apparent hallucination; No delusions Skin: normal color, warm/dry Lymphatic: no adenopathy Suicide Risk Suicide Risk Suicide Risk Level / RN Screen: Low Low Suicide Risk Level []Suicidal Ideation WITHOUT method, intent, plan or behavior more than a month ago []]Modifiable risk factors and strong protective factors []No reported history of suicidal ideation or behavior []Patient reports/exhibits symptoms consistent with psychosis []Patient reports a plan that would be unrealistic/impossible to complete and intent []Suicide attempt prior to arrival (Indicates at LEAST Low Suicide Risk, consider other risk factors) Moderate Suicide Risk Level: []Suicidal ideation with method, WITHOUT plan, intent or behavior in the past month []Multiple risk factors and few protective factors []Patient reports intent to follow through on plan to end life if allowed to [facility], and has attempted to elope from the hospital High Suicide Risk Level: [] Suicidal ideation with intent or intent with a plan in the past month [] Patient has harmed self or attempted suicide while in the hospital [] Patient has hx of or current Command Auditory hallucinations to harm self or others that they follow without hesitation [] Patient refuses to disclose plan, and indicates intent to complete [] Patient reports plan that is possible to accomplish and/or has means to complete Risk factors supporting recommendation: [] Non-compliance with treatment (acute or chronic) [] Patient has access to or owns firearms and/or stockpiled medications [] Hx Impulsive behavior [] Pending incarceration or homelessness [] Sexual abuse [] Family history and/or exposure to suicide [] Adverse childhood experiences [] Exposure to violence or negative socio-political cultural, and economic forces [] Current or hx of substance use/abuse [] Chronic physical pain or other acute medical problem (AIDS, COPD, Cancer, etc) [] Perceived burden on family or others [] Patient has attempted to elope [] Unable to answer and/or unable to identify [] Refuses to agree to a safety plan Protective Factors supporting recommendation: [] Identifies reasons for living [] Future plans/goals [] Engaged in work or School [] Good family support network [] Good social support network [] Responsibility to family [] Belief that suicide is immoral, against their episcopalian beliefs [] High spirituality and involvement in baptist community [] Fear of or dying due to pain and suffering [] Established outpt psychiatric services [] Unable to answer and/or unable to identify Progress/Results/Core Measures Results/Orders Lab Results Laboratory Tests Test 11/02/21 12:55 11/02/21 13:53 Range/Units White Blood Count 13.2 H 4.3-11.0 10^3/uL Red Blood Count 5.28 4.30-5.52 10^6/uL Hemoglobin 15.5 13.3-17.7 g/dL Hematocrit 44 40-54 % Mean Corpuscular Volume 84 80-99 fL Mean Corpuscular Hemoglobin 29 25-34 pg Mean Corpuscular Hemoglobin Concent 35 32-36 g/dL Red Cell Distribution Width 12.6 10.0-14.5 % Platelet Count 318 130-400 10^3/uL Mean Platelet Volume 9.9 9.0-12.2 fL Immature Granulocyte % (Auto) 1 % Neutrophils (%) (Auto) 77 H 42-75 % Lymphocytes (%) (Auto) 14 12-44 % Monocytes (%) (Auto) 7 0-12 % Eosinophils (%) (Auto) 0 0-10 % Basophils (%) (Auto) 1 0-10 % Neutrophils # (Auto) 10.3 H 1.8-7.8 10^3/uL Lymphocytes # (Auto) 1.9 1.0-4.0 10^3/uL Monocytes # (Auto) 0.9 0.0-1.0 10^3/uL Eosinophils # (Auto) 0.1 0.0-0.3 10^3/uL Basophils # (Auto) 0.1 0.0-0.1 10^3/uL Immature Granulocyte # (Auto) 0.1 0.0-0.1 10^3/uL Sodium Level 137 135-145 MMOL/L Potassium Level 3.7 3.6-5.0 MMOL/L Chloride Level 104 98-107 MMOL/L Carbon Dioxide Level 19 L 21-32 MMOL/L Anion Gap 14 5-14 MMOL/L Blood Urea Nitrogen 8 7-18 MG/DL Creatinine 0.77 0.60-1.30 MG/DL Estimat Glomerular Filtration Rate 126 BUN/Creatinine Ratio 10 Glucose Level 112 H 70-105 MG/DL Calcium Level 9.8 8.5-10.1 MG/DL Corrected Calcium 8.5-10.1 MG/DL Magnesium Level 2.2 1.6-2.4 MG/DL Total Bilirubin 0.5 0.1-1.0 MG/DL Aspartate Amino Transf (AST/SGOT) 20 5-34 U/L Alanine Aminotransferase (ALT/SGPT) 60 H 0-55 U/L Alkaline Phosphatase 103 40-136 U/L Total Protein 7.9 6.4-8.2 GM/DL Albumin 4.9 H 3.2-4.5 GM/DL Lipase 19 8-78 U/L Acetaminophen Level < 10 L 10-30 UG/ML Serum Alcohol < 10 <10 MG/DL Influenza Type A (RT-PCR) Not Detected Not Detecte Influenza Type B (RT-PCR) Not Detected Not Detecte SARS-CoV-2 RNA (RT-PCR) Not Detected Not Detecte Urine Opiates Screen NEGATIVE NEGATIVE Urine Oxycodone Screen NEGATIVE NEGATIVE Urine Methadone Screen NEGATIVE NEGATIVE Urine Propoxyphene Screen NEGATIVE NEGATIVE Urine Barbiturates Screen NEGATIVE NEGATIVE Ur Tricyclic Antidepressants Screen NEGATIVE NEGATIVE Urine Phencyclidine Screen NEGATIVE NEGATIVE Urine Amphetamines Screen POSITIVE H NEGATIVE Urine Methamphetamines Screen POSITIVE H NEGATIVE Urine Benzodiazepines Screen NEGATIVE NEGATIVE Urine Cocaine Screen NEGATIVE NEGATIVE Urine Cannabinoids Screen POSITIVE H NEGATIVE My Orders Orders - AURELIO KENT MD Cbc With Automated Diff (11/02/21 12:43) Comprehensive Metabolic Panel (11/02/21 12:43) Lipase (11/02/21 12:43) Magnesium (11/02/21 12:43) Influenza A And B By Pcr (11/02/21 12:43) Covid 19 Inhouse Test (11/02/21 12:43) Acetaminophen Tablet (Tylenol Tablet) (11/02/21 12:45) Lactated Ringers (Lr 1000 Ml Iv Solution (11/02/21 12:43) Ondansetron Injection (Zofran Injectio (11/02/21 12:45) Alcohol (11/02/21 12:43) Drug Screen Stat (Urine) (11/02/21 12:43) Acetaminophen (11/02/21 12:43) Ed Iv/Invasive Line Start (11/02/21 12:43) Medications Given in ED Current Medications Medications Dose Ordered Sig/Owen Route Start Time Stop Time Status Last Admin Dose Admin Acetaminophen 1,000 mg ONCE ONCE PO 11/02/21 12:45 11/02/21 12:46 DC 11/02/21 13:00 1,000 MG Ondansetron HCl 4 mg ONCE ONCE IVP 11/02/21 12:45 11/02/21 12:46 DC 11/02/21 13:00 4 MG Vital Signs/I&O 11/02/21 8 12:45 14:15 Temp 35.4 37.2 Pulse 86 89 Resp 18 20 B/P (MAP) 138/97 (111) 134/82 Pulse Ox 97 98 O2 Delivery Room Air Room Air Progress Progress Note : Progress Note 26-year-old male with above history coming in after using meth 3 days ago feeling more tired than usual. ABCs were intact and vitals were stable on presentation. Physical exam reassuring including no focal abnormalities. An IV was placed and basic labs were obtained. Specifically, the patient says last time he used meth he did not intake enough p.o. and had kidney issues. We will give him a bolus of IV fluids, Zofran for nausea, Tylenol for body discomfort. Flu and COVID test sent in case these are just viral symptoms. Labs were essentially unremarkable. Patient feeling slightly better on reassessment. I believe he stable for discharge with outpatient follow-up. He was sent home with strict return precautions Departure Impression Primary Impression: Methamphetamine use Additional Impression: Fatigue Qualified Codes: T73.3XXA - Exhaustion due to excessive exertion, initial encounter Disposition: HOME, SELF-CARE Condition: Stable Departure-Patient Inst. Decision time for Depature: 14:03 Referrals: SELFVIANNEY MD (PCP) Primary Care Physician Patient Instructions: ALCOHOL AND SUBSTANCE ABUSE Add. Discharge Instructions: The symptoms you are feeling are because you are coming off of the high from the meth. It will probably take a couple more days with your resting and eating and drinking properly to start feeling better. Your labs look okay including your kidney function is normal. Work/School Note: Work Release Form Date Seen in the Emergency Department: Nov 02, 2021 Return to Work: Nov 03, 2021 Restrictions: No Restrictions AURELIO KENT MD Nov 02, 2021 12:48
[2021-11-02 13:02] LABS: BASOPHILS # (AUTO) 0.1 10^3/uL (0.0-0.1); BASOPHILS % (AUTO) 1 % (0-10); EOSINOPHILS # (AUTO) 0.1 10^3/uL (0.0-0.3); EOSINOPHILS % (AUTO) 0 % (0-10); HEMATOCRIT 44 % (40-54); HEMOGLOBIN 15.5 g/dL (13.3-17.7); LYMPHOCYTES # (AUTO) 1.9 10^3/uL (1.0-4.0); LYMPHOCYTES % (AUTO) 14 % (12-44); MEAN CORPUSCULAR HEMOGLOBIN 29 pg (25-34); MEAN CORPUSCULAR HGB CONC 35 g/dL (32-36); MEAN CORPUSCULAR VOLUME 84 fL (80-99); MEAN PLATELET VOLUME 9.9 fL (9.0-12.2); MONOCYTES # (AUTO) 0.9 10^3/uL (0.0-1.0); MONOCYTES % (AUTO) 7 % (0-12); NEUTROPHILS # (AUTO) 10.3 10^3/uL (1.8-7.8); NEUTROPHILS % (AUTO) 77 % (42-75); PLATELET COUNT 318 10^3/uL (130-400); WHITE BLOOD COUNT 13.2 10^3/uL (4.3-11.0)
[2021-11-02 13:28] LABS: ALANINE AMINOTRANSFERASE 60 U/L (0-55); ALKALINE PHOSPHATASE 103 U/L (40-136); BILIRUBIN,TOTAL 0.5 MG/DL (0.1-1.0); BUN/CREATININE RATIO 10; CALCIUM 9.8 MG/DL (8.5-10.1); CARBON DIOXIDE 19 MMOL/L (21-32); CHLORIDE 104 MMOL/L (98-107); CREATININE SERUM 0.77 MG/DL (0.60-1.30); GFR ESTIMATED 126; GLUCOSE 112 MG/DL (70-105); MAGNESIUM 2.2 MG/DL (1.6-2.4); POTASSIUM 3.7 MMOL/L (3.6-5.0); SODIUM 137 MMOL/L (135-145)
[2021-11-02 13:29] LABS: ACETAMINOPHEN < 10 UG/ML (10-30); ALBUMIN 4.9 GM/DL (3.2-4.5); LIPASE 19 U/L (8-78); TOTAL PROTEIN 7.9 GM/DL (6.4-8.2)
[2021-11-02 14:09] LABS: AMPHETAMINE SCREEN, URINE POSITIVE (NEGATIVE); CANNABINOID SCREEN, URINE POSITIVE (NEGATIVE)
[2021-11-02 14:10] LABS: BARBITURATE SCREEN URINE NEGATIVE (NEGATIVE); BENZODIAZEPINES SCREEN URINE NEGATIVE (NEGATIVE); COCAINE SCREEN URINE NEGATIVE (NEGATIVE); METHADONE STAT NEGATIVE (NEGATIVE); OPIATE SCREEN URINE NEGATIVE (NEGATIVE); OXYCODONE STAT NEGATIVE (NEGATIVE); PROPOXYPHENE STAT NEGATIVE (NEGATIVE); TRICYCLIC ANTIDEPRESSANTS SCRE NEGATIVE (NEGATIVE)
[2021-11-02 14:15] VITALS: BP 134/82
== END 2021-11-02 14:07 | disposition home or self-care (01) ==
LOC: EDUNIT# 12:31 → ER FS 12:33
DX: R53.83 Other fatigue (principal); F15.90 Other stimulant use, unspecified, uncomplicated; Z20.822 Contact with and (suspected) exposure to COVID-19
CPT/HCPCS: 36415; 80053; 80306; 83690; 83735; 85025; 87636; 99284; G0480 ×2; 80320; 80329

== ENCOUNTER 2021-12-23 22:28 | Emergency (ER) | payer SELFPAY ==
[2021-12-23] MEDS ORDERED: AUGMENTIN 875 MG TAB (AMOXICILLIN/CLAVULANATE) PO STA (23:02)
[2021-12-23] MEDS ORDERED: AMOX1TAB12 PO (23:06)
[2021-12-23] MEDS ORDERED: ACHD5005 PO (23:06)
[2021-12-23] MEDS ORDERED: IBUP-1780 PO (23:06)
[2021-12-23 23:07] VITALS: BP 164/101
--- NOTE | 2021-12-23 23:07 | ED EENT ---
History of Present Illness General Chief Complaint: Dental Problems/Pain Stated Complaint: TOOTH PAIN Nursing Triage Note: Pt complaining of left upper dental pain that has been going on a few months but has gotten worse recently. Source: patient History of Present Illness Date Seen by Provider: Dec 23, 2021 Time Seen by Provider: 22:51 Initial Comments 26-year-old male presenting with complaints of recurrent dental pain to the left upper posterior teeth. He states he has been hurting off and on over the last few months but became worse tonight when he was eating. He has previously taken antibiotics a few months ago for pain in the same area of his teeth. He has widespread dental decay with multiple broken teeth. There are some mild swelling to the gums around the tooth. He denies having any drainage or fever or chills. He has pain to the left upper teeth and into his left maxillary sinus. He has been taking Tylenol and ibuprofen with minimal improvement in his pain. Timing/Duration: abrupt (Tonight while eating) Severity: severe Location: dental Prearrival Treatment: over the counter meds Modifying Factors: Worse With Other (Eating and drinking makes it worse) Associated Symptoms: No change in hearing, No cough, No drooling, No ear drainage; facial pain/swelling (Left upper maxillary area into the sinuses); No fever, No malaise, No nasal congestion/drainage, No poor fluid intake, No poor solids intake, No sinus infection, No sore throat; tooth pain; No voice change Allergies and Home Medications Allergies Coded Allergies: strawberry (Unverified Allergy, Unknown, 10/31/14) Patient Home Medication List Home Medication List Reviewed: Yes Amoxicillin/Potassium Clav (Amox Tr-K Clv 875-125 mg Tab) 875 Mg-125 Mg Tablet, 1 EACH PO BID Prescribed by: TERRI NORMAN on 12/23/21 230 Cephalexin (Cephalexin) 500 Mg Tablet, 500 MG PO TID Prescribed by: PAPITO JORGENSEN on 10/11/20 0517 Hydrocodone/Acetaminophen (Hydrocodone-Acetamin 5-325 mg) 5 Mg-325 Mg Tablet, 1 TAB PO Q6H PRN for PAIN-SEVERE (8-10) Prescribed by: TERRI NORMAN on 12/23/21 230 Ibuprofen (Ibuprofen) 800 Mg Tablet, 800 MG PO Q8H PRN for PAIN Prescribed by: TERRI NORMAN on 12/23/21 5456 Review of Systems Review of Systems Constitutional: No chills, No fever Eyes: No Symptoms Reported Ears: No Symptoms Reported Nose: no symptoms reported Mouth: see HPI Throat: no symptoms reported Respiratory: no symptoms reported Cardiovascular: no symptoms reported Gastrointestinal: no symptoms reported Musculoskeletal: no symptoms reported Skin: no symptoms reported Neurological: Anxiety Past Mhfwgag-Lankem-Xcflyu Hx Patient Social History Tobacco Use?: No Use of E-Cig and/or Vaping dev: No Substance use?: Yes Substance type: Methamphetamine Alcohol Use?: No Pt feels they are or have been: No Immunizations Up To Date Tetanus Booster (TDap): More than 5yrs First/Initial COVID19 Vaccinat: Received with unknown date Second COVID19 Vaccination Jc: Received with unknown date Seasonal Allergies Seasonal Allergies: No Past Medical History Surgery/Hospitalization HX: Methamphetamine abuse, recurrent dental infections Surgeries: Yes (L wrist; knee) Orthopedic Respiratory: No Cardiac: No Hypertension Neurological: No Reproductive Disorders: No Sexually Transmitted Disease: No Genitourinary: No Gastrointestinal: No Musculoskeletal: Yes Arthritis Endocrine: No HEENT: No Cancer: No Psychosocial: Yes Sleep Difficulties, Anxiety, Bipolar, Schizophrenia, Depression Integumentary: No Blood Disorders: No Physical Exam Vital Signs Vital Signs - First Documented 12/23/21 22:31 Temp 37.1 Pulse 123 Resp 18 B/P (MAP) 164/101 (122) Pulse Ox 98 O2 Delivery Room Air Height, Weight, BMI Height: 6'1.00" Weight: 250lbs. oz. 113.135516qm; 35.00 BMI Method:Stated General Appearance: WD/WN, no apparent distress Eyes: bilateral eye PERRL, bilateral eye EOMI Mouth/Throat: pharynx normal, dental tenderness (Left upper posterior teeth with decay and gum swelling. Tender to palpation.) Neck: non-tender, full range of motion, supple, normal inspection Cardiovascular: normal peripheral pulses, regular rate, rhythm Respiratory: chest non-tender, lungs clear, normal breath sounds Neurologic/Psychiatric: alert, oriented x 3 Skin: normal color, warm/dry Progress/Results/Core Measures Results/Orders My Orders Orders - TERRI NORMAN MD Amoxicillin/Clavulanate Tablet (Augmenti (12/23/21 23:02) Rx-Hydrocodone/Apap 5-325 Mg (Rx-Vicodin (12/23/21 23:05) Medications Given in ED Current Medications Medications Dose Ordered Sig/Owen Route Start Time Stop Time Status Last Admin Dose Admin Acetaminophen/ Hydrocodone Bitart 1 ea Q6H PRN PO 12/23/21 23:05 12/23/21 23:07 1 EA Vital Signs/I&O 12/23/21 22:31 Temp 37.1 Pulse 123 Resp 18 B/P (MAP) 164/101 (122) Pulse Ox 98 O2 Delivery Room Air Blood Pressure Mean: 122 Progress Progress Note : Progress Note Started on Augmentin and have him continue ibuprofen. Prescribe a few hydrocodone/acetaminophen for severe pain. Encouraged to call dentist Sunday for definitive care Departure Impression Primary Impression: Pain due to dental caries Additional Impression: Infected dental caries Disposition: HOME, SELF-CARE Condition: Stable Departure-Patient Inst. Decision time for Depature: 23:04 Referrals: SELFVIANNEY MD (PCP/Family) Primary Care Physician [facility] Patient Instructions: Tooth Decay ED, Dental Pain ED Add. Discharge Instructions: Take antibiotics to treat for infection in the tooth and gums. Take Ibuprofen 800 mg every 8 hours as needed for pain and swelling. Hydrocodone/Acetaminophen 5/325 mg every 6 hours as needed for severe pain. Call Dentist Sunday to arrange follow up for definitive care of the tooth All discharge instructions reviewed with patient and/or family. Voiced understanding. Scripts Hydrocodone/Acetaminophen (Hydrocodone-Acetamin 5-325 mg) 5 Mg-325 Mg Tablet 1 TAB PO Q6H PRN for PAIN-SEVERE (8-10) for 4 Days, #16 TAB 0 Refills Prov: TERRI NORMAN MD 12/23/21 Amoxicillin/Potassium Clav (Amox Tr-K Clv 875-125 mg Tab) 875 Mg-125 Mg Tablet 1 EACH PO BID for Dental pain/Infection for 10 Days, #20 TAB 0 Refills Prov: TERRI NORMAN MD 12/23/21 Ibuprofen (Ibuprofen) 800 Mg Tablet 800 MG PO Q8H PRN for PAIN for 10 Days, #30 TAB 0 Refills Prov: TERRI NORMAN MD 12/23/21 Images Mouth/Nose 1 - Caries, Fracture Tooth, Swelling, Tenderness TERRI NORMAN MD Dec 23, 2021 23:07
== END 2021-12-23 23:08 | disposition home or self-care (01) ==
LOC: EDUNIT# 22:28 → ER FS 22:29
DX: K02.9 Dental caries, unspecified (principal); K04.7 Periapical abscess without sinus
CPT/HCPCS: 99283

== ENCOUNTER 2022-01-01 22:31 | Emergency (ER) | payer SELFPAY ==
[~2022-01-01] VITALS: Ht 185.9 cm; Wt 142.0 kg
[~2022-01-01 22:31] MED LIST changes: +ACHD5005 PO; +AMOX1TAB12 PO; +IBUP-1780 PO
[2022-01-01] MEDS ORDERED: LIDOCAINE 1% INJ 50 ML (XYLOCAINE) VIAL ONE (22:59)
[2022-01-01] MEDS ORDERED: LIDOCAINE 1% INJ 20 ML VIAL INJ ONE (23:00)
[2022-01-01 23:03] LABS: BASOPHILS # (AUTO) 0.1 10^3/uL (0.0-0.1); BASOPHILS % (AUTO) 1 % (0-10); EOSINOPHILS # (AUTO) 0.2 10^3/uL (0.0-0.3); EOSINOPHILS % (AUTO) 1 % (0-10); HEMATOCRIT 41 % (40-54); HEMOGLOBIN 14.2 g/dL (13.3-17.7); LYMPHOCYTES # (AUTO) 3.4 10^3/uL (1.0-4.0); LYMPHOCYTES % (AUTO) 28 % (12-44); MEAN CORPUSCULAR HEMOGLOBIN 30 pg (25-34); MEAN CORPUSCULAR HGB CONC 35 g/dL (32-36); MEAN CORPUSCULAR VOLUME 87 fL (80-99); MEAN PLATELET VOLUME 10.2 fL (9.0-12.2); MONOCYTES # (AUTO) 0.9 10^3/uL (0.0-1.0); MONOCYTES % (AUTO) 7 % (0-12); NEUTROPHILS # (AUTO) 7.7 10^3/uL (1.8-7.8); NEUTROPHILS % (AUTO) 63 % (42-75); PLATELET COUNT 271 10^3/uL (130-400); WHITE BLOOD COUNT 12.3 10^3/uL (4.3-11.0)
[2022-01-01 23:24] LABS: ALANINE AMINOTRANSFERASE 53 U/L (0-55); ALKALINE PHOSPHATASE 90 U/L (40-136); BILIRUBIN,TOTAL 0.3 MG/DL (0.1-1.0); BUN/CREATININE RATIO 13; CALCIUM 9.4 MG/DL (8.5-10.1); CARBON DIOXIDE 20 MMOL/L (21-32); CHLORIDE 106 MMOL/L (98-107); CREATININE SERUM 0.63 MG/DL (0.60-1.30); GFR ESTIMATED 134; GLUCOSE 97 MG/DL (70-105); POTASSIUM 3.8 MMOL/L (3.6-5.0); SODIUM 140 MMOL/L (135-145)
[2022-01-01 23:25] LABS: ALBUMIN 4.7 GM/DL (3.2-4.5); TOTAL PROTEIN 7.5 GM/DL (6.4-8.2)
[2022-01-01 23:42] LABS: BILIRUBIN,URINE NEGATIVE (NEGATIVE); CLARITY,URINE CLEAR; GLUCOSE, URINE (UA) NEGATIVE (NEGATIVE); KETONES,URINE NEGATIVE (NEGATIVE); LEUKOCYTE ESTERASE ,URINE NEGATIVE (NEGATIVE); NITRITE,URINE NEGATIVE (NEGATIVE); PROTEIN,URINE NEGATIVE (NEGATIVE)
[2022-01-01 23:54] LABS: BACTERIA,URINE NEGATIVE /HPF; SQUAMOUS EPITHELIAL CELL,UR RARE /HPF; WBC,URINE RARE /HPF
[2022-01-01 23:55] LABS: AMPHETAMINE SCREEN, URINE NEGATIVE (NEGATIVE); BARBITURATE SCREEN URINE NEGATIVE (NEGATIVE); BENZODIAZEPINES SCREEN URINE NEGATIVE (NEGATIVE); CANNABINOID SCREEN, URINE POSITIVE (NEGATIVE); COCAINE SCREEN URINE NEGATIVE (NEGATIVE); COLOR,URINE PALE YELLOW; METHADONE STAT NEGATIVE (NEGATIVE); OPIATE SCREEN URINE NEGATIVE (NEGATIVE); OXYCODONE STAT NEGATIVE (NEGATIVE); PROPOXYPHENE STAT NEGATIVE (NEGATIVE); TRICYCLIC ANTIDEPRESSANTS SCRE NEGATIVE (NEGATIVE)
--- NOTE | 2022-01-02 00:03 | ED Upper Extremity ---
General Chief Complaint: Laceration Stated Complaint: RIGHT HAND LACERATION Nursing Triage Note: patient verbalized he was on the internet and started having delusions, states he got into an argument with his father, felt out of control, and then punched a window. patient states has a history of delusional thoughts. patient denies being suicidal or homicidal. injury to patients right hand Source: patient History of Present Illness Date Seen by Provider: Jan 01, 2022 Time Seen by Provider: 23:00 Initial Comments Patient is a 26-year-old right-handed male who presents with right hand laceration after punching a window earlier this evening. Patient has a history of paranoid schizophrenic currently on medications. He states his father has undiagnosed/and treated schizophrenia and is trying to brainwashed him with conspiracy theories. Patient states he has auditory hallucinations and delusions but is usually well controlled, but became upset this evening when a rguing with his father. He punched a glass door out of frustration. Patient has a 1 cm full-thickness jagged laceration of the extensor surface of his right finger. He denies foreign body sensation. Patient has had his tetanus within the past 10 years. Patient denies homicidal ideation, suicidal ideation, or command hallucinations. No other acute symptoms or complaints Onset: just prior to arrival Severity: mild Pain/Injury Location: right 2nd finger Method of Injury: other Modifying Factors: Improves With Other Allergies and Home Medications Allergies Coded Allergies: strawberry (Unverified Allergy, Unknown, 10/31/14) Patient Home Medication List Home Medication List Reviewed: Yes Amoxicillin/Potassium Clav (Amox Tr-K Clv 875-125 mg Tab) 875 Mg-125 Mg Tablet, 1 EACH PO BID Prescribed by: TERRI NORMAN on 12/23/212305 Cephalexin (Cephalexin) 500 Mg Tablet, 500 MG PO TID Prescribed by: PAPITO JORGENSEN on 10/11/20 0517 Hydrocodone/Acetaminophen (Hydrocodone-Acetamin 5-325 mg) 5 Mg-325 Mg Tablet, 1 TAB PO Q6H PRN for PAIN-SEVERE (8-10) Prescribed by: TERRI NORMAN on 12/23/212306 Ibuprofen (Ibuprofen) 800 Mg Tablet, 800 MG PO Q8H PRN for PAIN Prescribed by: TERRI NORMAN on 12/23/212305 Review of Systems Constitutional: see HPI Skin: see HPI Past [id number]-Ztlmna Hx Patient Social History Tobacco Use?: Yes Tobacco type used: Cigarettes Smoking Status: Current Everyday Smoker Use of E-Cig and/or Vaping dev: No Substance use?: No Alcohol Use?: No Pt feels they are or have been: No Immunizations Up To Date Tetanus Booster (TDap): More than 5yrs First/Initial COVID19 Vaccinat: Received with unknown date Second COVID19 Vaccination Jc: Received with unknown date Seasonal Allergies Seasonal Allergies: No Past Medical History Surgery/Hospitalization HX: Methamphetamine abuse, recurrent dental infections Surgeries: Yes (L wrist; knee) Orthopedic Respiratory: No Cardiac: No Hypertension Neurological: No Reproductive Disorders: No Sexually Transmitted Disease: No Genitourinary: No Gastrointestinal: No Musculoskeletal: Yes Arthritis Endocrine: No HEENT: No Cancer: No Psychosocial: Yes Sleep Difficulties, Anxiety, Bipolar, Schizophrenia, Depression Integumentary: No Blood Disorders: No Physical Exam Vital Signs Vital Signs - First Documented 01/01/22 22:42 Temp 37.2 Pulse 101 Resp 20 B/P (MAP) 149/96 (113) Pulse Ox 99 O2 Delivery Room Air Capillary Refill : Less Than 3 Seconds Height, Weight, BMI Height: 6'1.00" Weight: 250lbs. oz. [id number]; 41.00 BMI Method:Stated General Appearance: no apparent distress Hand: Right, laceration (1 cm jagged, full-thickness, index finger laceration, extensor surface. No fb. ), soft tissue tenderness Neurologic/Psychiatric: alert, oriented x 3 Skin: normal color Procedures/Interventions Wound Location: Upper Extremities (R index finger) Wound's Depth, Shape: contused tissue Betadine Prep?: Yes Anesthesia: 1% Lidocaine Wound Debrided: minimal Suture: Ethlion Suture Size: 4-0 Number of Sutures: 2 Layer Closure?: 1 Sterile Dressing Applied?: Yes Progress Wound cleansed, explored for foreign bodies, no foreign bodies present. Wound closed with 2 simple interrupted, 4-0 Ethilon sutures. Progress/Results/Core Measures Results/Orders Lab Results Laboratory Tests Test 01/01/22 22:50 01/01/22 23:00 01/01/22 23:30 Range/Units White Blood Count 12.3 H 4.3-11.0 10^3/uL Red Blood Count 4.73 4.30-5.52 10^6/uL Hemoglobin 14.2 13.3-17.7 g/dL Hematocrit 41 40-54 % Mean Corpuscular Volume 87 80-99 fL Mean Corpuscular Hemoglobin 30 25-34 pg Mean Corpuscular Hemoglobin Concent 35 32-36 g/dL Red Cell Distribution Width 13.2 10.0-14.5 % Platelet Count 271 130-400 10^3/uL Mean Platelet Volume 10.2 9.0-12.2 fL Immature Granulocyte % (Auto) 0 % Neutrophils (%) (Auto) 63 42-75 % Lymphocytes (%) (Auto) 28 12-44 % Monocytes (%) (Auto) 7 0-12 % Eosinophils (%) (Auto) 1 0-10 % Basophils (%) (Auto) 1 0-10 % Neutrophils # (Auto) 7.7 1.8-7.8 10^3/uL Lymphocytes # (Auto) 3.4 1.0-4.0 10^3/uL Monocytes # (Auto) 0.9 0.0-1.0 10^3/uL Eosinophils # (Auto) 0.2 0.0-0.3 10^3/uL Basophils # (Auto) 0.1 0.0-0.1 10^3/uL Immature Granulocyte # (Auto) 0.1 0.0-0.1 10^3/uL Sodium Level 140 135-145 MMOL/L Potassium Level 3.8 3.6-5.0 MMOL/L Chloride Level 106 98-107 MMOL/L Carbon Dioxide Level 20 L 21-32 MMOL/L Anion Gap 14 5-14 MMOL/L Blood Urea Nitrogen 8 7-18 MG/DL Creatinine 0.63 0.60-1.30 MG/DL Estimat Glomerular Filtration Rate 134 BUN/Creatinine Ratio 13 Glucose Level 97 70-105 MG/DL Calcium Level 9.4 8.5-10.1 MG/DL Corrected Calcium 8.5-10.1 MG/DL Total Bilirubin 0.3 0.1-1.0 MG/DL Aspartate Amino Transf (AST/SGOT) 14 5-34 U/L Alanine Aminotransferase (ALT/SGPT) 53 0-55 U/L Alkaline Phosphatase 90 40-136 U/L Total Protein 7.5 6.4-8.2 GM/DL Albumin 4.7 H 3.2-4.5 GM/DL Serum Alcohol < 10 <10 MG/DL Influenza Type A (RT-PCR) Not Detected Not Detecte Influenza Type B (RT-PCR) Not Detected Not Detecte SARS-CoV-2 RNA (RT-PCR) Not Detected Not Detecte Urine Color PALE YELLOW Urine Clarity CLEAR Urine pH 6.0 5-9 Urine Specific [place] <=1.005 1.016-1.022 Urine Protein NEGATIVE NEGATIVE Urine Glucose (UA) NEGATIVE NEGATIVE Urine Ketones NEGATIVE NEGATIVE Urine Nitrite NEGATIVE NEGATIVE Urine Bilirubin NEGATIVE NEGATIVE Urine Urobilinogen 0.2 < = 1.0 MG/DL Urine Leukocyte Esterase NEGATIVE NEGATIVE Urine RBC (Auto) NEGATIVE NEGATIVE Urine RBC NONE /HPF Urine WBC RARE /HPF Urine Squamous Epithelial Cells RARE /HPF Urine Crystals NONE /LPF Urine Bacteria NEGATIVE /HPF Urine Casts NONE /LPF Urine Mucus NEGATIVE /LPF Urine Culture Indicated NO My Orders Orders - PAPITO JORGENSEN DO Cbc With Automated Diff (01/01/22 22:44) Comprehensive Metabolic Panel (01/01/22 22:44) Drug Screen Stat (Urine) (01/01/22 22:44) Ua Culture If Indicated (01/01/22 22:44) Ekg Tracing (01/01/22 22:44) Covid 19 Inhouse Test (01/01/22 22:44) Influenza A And B By Pcr (01/01/22 22:44) Isolation Central Supply Req (01/01/22 22:44) Alcohol (01/01/22 22:44) Drug Screen Urine Cl(Send Out) (01/01/22 22:44) Lidocaine 1% Inj 20 Ml (Xylocaine 1% Inj (01/01/22 23:00) Lidocaine 1% Inj 50 Ml (Xylocaine 1% Inj (01/01/22 22:59) Medications Given in ED Current Medications Medications Dose Ordered Sig/Owen Route Start Time Stop Time Status Last Admin Dose Admin Lidocaine HCl 20 ml ONCE ONCE INJ 01/01/22 23:00 01/01/22 23:01 DC 01/01/22 23:39 20 ML Vital Signs/I&O 01/01/22 22:42 Temp 37.2 Pulse 101 Resp 20 B/P (MAP) 149/96 (113) Pulse Ox 99 O2 Delivery Room Air Blood Pressure Mean: 113 Departure Communication (Admissions) Right thumb laceration, wound cleansed, explored and closed. Typical wound care instructions provided. Patient with chronic psychosis, currently compliant on medication. Patient denies active hallucinations delusions, paranoia, SI or HI while in the emergen cy department. This was discussed with the patient's mother and sister. The patient does not currently require meet criteria for inpatient screening but does have community follow-up with his therapist. He is comfortable staying with his sister this evening away from his father's home. Return precautions reviewed. Patient verbalizes understanding agreement with discharge instr uctions prior to departure. Impression Primary Impression: Laceration of right index finger Disposition: HOME, SELF-CARE Condition: Stable Departure-Patient Inst. Decision time for Depature: 00:10 Referrals: SELFVIANNEY MD (PCP/Family) Primary Care Physician Patient Instructions: Wound Care ED Add. Discharge Instructions: You were evaluated in the emergency department for right hand laceration. Please keep wound clean dry and covered return to the emergency department in 7 to 10 days for suture removal. In the meantime if you develop signs of infection, return sooner. Follow-up with your therapist ongoing management of schizophrenia. Return to the ED if new or concerning symptoms All discharge instructions reviewed with patient and/or family. Voiced understanding. PAPITO JORGENSEN DO Jan 02, 2022 00:03
[2022-01-02 00:17] VITALS: BP 149/96
[2022-01-02 22:15] LABS: AMPHETAMINES URINE QUAL DS Negative (Negative); BARBITURATES URINE QUAL DS Negative (Negative); BENZODIAZEPINE URINE QUAL DS Negative (Negative)
== END 2022-01-02 00:24 | disposition home or self-care (01) ==
LOC: EDUNIT# 22:31 → ER FS 22:35
DX: S61.210A Laceration without foreign body of right index finger without damage to nail, initial encounter (principal); F20.0 Paranoid schizophrenia; F17.210 Nicotine dependence, cigarettes, uncomplicated; Z20.822 Contact with and (suspected) exposure to COVID-19; Z28.310 Unvaccinated for COVID-19; Z79.899 Other long term (current) drug therapy; W22.8XXA Striking against or struck by other objects, initial encounter
CPT/HCPCS: 12001; 36415; 80053; 80306; 81000; 85025; 87636; 93005; 99284; G0479; G0480; 80307; 80320

== ENCOUNTER 2022-11-25 20:31 | Emergency (ER) | payer SELFPAY ==
[2022-11-25 20:55] LABS: AMPHETAMINE SCREEN, URINE NEGATIVE (NEGATIVE); BARBITURATE SCREEN URINE NEGATIVE (NEGATIVE); BENZODIAZEPINES SCREEN URINE NEGATIVE (NEGATIVE); CANNABINOID SCREEN, URINE POSITIVE (NEGATIVE); COCAINE SCREEN URINE NEGATIVE (NEGATIVE); METHADONE STAT NEGATIVE (NEGATIVE); OPIATE SCREEN URINE NEGATIVE (NEGATIVE); OXYCODONE STAT NEGATIVE (NEGATIVE); PROPOXYPHENE STAT NEGATIVE (NEGATIVE); TRICYCLIC ANTIDEPRESSANTS SCRE NEGATIVE (NEGATIVE)
[2022-11-25 20:55] LABS: BASOPHILS # (AUTO) 0.1 10^3/uL (0.0-0.1); BASOPHILS % (AUTO) 0 % (0-10); EOSINOPHILS # (AUTO) 0.1 10^3/uL (0.0-0.3); EOSINOPHILS % (AUTO) 1 % (0-10); HEMATOCRIT 43 % (40-54); HEMOGLOBIN 14.7 g/dL (13.3-17.7); LYMPHOCYTES # (AUTO) 3.5 10^3/uL (1.0-4.0); LYMPHOCYTES % (AUTO) 21 % (12-44); MEAN CORPUSCULAR HEMOGLOBIN 30 pg (25-34); MEAN CORPUSCULAR HGB CONC 34 g/dL (32-36); MEAN CORPUSCULAR VOLUME 87 fL (80-99); MEAN PLATELET VOLUME 9.9 fL (9.0-12.2); MONOCYTES % (AUTO) 6 % (0-12); NEUTROPHILS % (AUTO) 72 % (42-75); PLATELET COUNT 318 10^3/uL (130-400); WHITE BLOOD COUNT 16.8 10^3/uL (4.3-11.0)
[2022-11-25 21:02] LABS: CLARITY,URINE CLEAR; COLOR,URINE YELLOW
[2022-11-25 21:03] LABS: BACTERIA,URINE NEGATIVE /HPF; BILIRUBIN,URINE NEGATIVE (NEGATIVE); GLUCOSE, URINE (UA) NEGATIVE (NEGATIVE); KETONES,URINE NEGATIVE (NEGATIVE); LEUKOCYTE ESTERASE ,URINE NEGATIVE (NEGATIVE); NITRITE,URINE NEGATIVE (NEGATIVE); PH,URINE 6.5 (5-9); PROTEIN,URINE NEGATIVE (NEGATIVE)
--- NOTE | 2022-11-25 21:09 | ED Psychosocial ---
General Chief Complaint: Psych/Social Disorder Stated Complaint: PSYCH Nursing Triage Note: Pt states he has been hallucinating for a couple of weeks. Pt states he hasn't had this happen before. Pt states he hears voices and they are telling him to run or something bad will happen. Pt denies suicidal thoughts. Source: patient History of Present Illness Date Seen by Provider: Nov 25, 2022 Time Seen by Provider: 20:33 Initial Comments 27-year-old male presenting with complaints of hallucinations. Auditory and visual for the last 2 weeks. He states this has not happened previously. He reports hearing voices telling him to run or something bad will happen. He denies suicidal or homicidal thoughts. He denies following with a primary care provider or with mental health. He denies having any fever or chills. He has had some nausea at times but denies vomiting. He does not take any prescription medicines every day. Timing/Duration: getting worse Severity: moderate Associated Symptoms: impaired concentration Allergies and Home Medications Allergies Coded Allergies: strawberry (Unverified Allergy, Unknown, 10/31/14) Patient Home Medication List Home Medication List Reviewed: Yes Amoxicillin/Potassium Clav (Amox Tr-K Clv 875-125 mg Tab) 875 Mg-125 Mg Tablet, 1 EACH PO BID Prescribed by: TERRI NORMAN on 12/23/212305 Cephalexin (Cephalexin) 500 Mg Tablet, 500 MG PO TID Prescribed by: PAPITO JORGENSEN on 10/11/20 0517 Hydrocodone/Acetaminophen (Hydrocodone-Acetamin 5-325 mg) 5 Mg-325 Mg Tablet, 1 TAB PO Q6H PRN for PAIN-SEVERE (8-10) Prescribed by: TERRI NORMAN on 12/23/212306 Ibuprofen (Ibuprofen) 800 Mg Tablet, 800 MG PO Q8H PRN for PAIN Prescribed by: TERRI NUNEZRT on 12/23/212305 Potassium Chloride (Potassium Chloride) 20 Meq Tablet.er, 20 MEQ PO BID Prescribed by: TERRI NORMAN on 11/25/22 1991 Review of Systems Constitutional: No chills, No fever EENTM: no symptoms reported Respiratory: no symptoms reported Cardiovascular: no symptoms reported Gastrointestinal: see HPI Genitourinary: no symptoms reported Musculoskeletal: no symptoms reported Skin: no symptoms reported Psychiatric/Neurological: See HPI, Anxiety, Emotional Problems Past Ecmwofq-Viscnp-Xcwbsa Hx Patient Social History Tobacco Use?: Yes Tobacco type used: Cigarettes Smoking Status: Current Everyday Smoker Use of E-Cig and/or Vaping dev: No Substance use?: Yes Substance type: Marijuana Alcohol Use?: No Immunizations Up To Date Tetanus Booster (TDap): More than 5yrs First/Initial COVID19 Vaccinat: Received with unknown date Second COVID19 Vaccination Jc: Received with unknown date Seasonal Allergies Seasonal Allergies: No Past Medical History Surgery/Hospitalization HX: Methamphetamine abuse, recurrent dental infections Surgeries: Yes (L wrist; knee) Orthopedic Respiratory: No Cardiac: No Hypertension Neurological: No Reproductive Disorders: No Sexually Transmitted Disease: No Genitourinary: No Gastrointestinal: No Musculoskeletal: Yes Arthritis Endocrine: No HEENT: No Cancer: No Psychosocial: Yes Sleep Difficulties, Anxiety, Bipolar, Schizophrenia, Depression Integumentary: No Blood Disorders: No Physical Exam Vital Signs - First Documented 11/25/22 20:35 Temp 36.6 Pulse 100 Resp 18 B/P (MAP) 141/85 (103) Pulse Ox 98 O2 Delivery Room Air Capillary Refill : Less Than 3 Seconds Height, Weight, BMI Height: 6'1.00" Weight: 250lbs. oz. [id number]; 41.00 BMI Method:Stated General Appearance: no apparent distress, other (Disheveled appearance) HEENT: PERRL/EOMI, pharynx normal Neck: non-tender, full range of motion, supple, normal inspection Respiratory: chest non-tender, lungs clear, normal breath sounds, no respiratory distress, no accessory muscle use Cardiovascular: normal peripheral pulses, regular rate, rhythm Gastrointestinal: normal bowel sounds, non tender, soft, no pulsatile mass Extremities: normal range of motion, non-tender, normal capillary refill Neurologic/Psychiatric: alert, oriented x 3 Appearance/Memory: disheveled Behavior/Eye Contact: cooperative, good eye contact, normal speech Thoughts/Hallucinations: auditory hallucinations, visual hallucinations Skin: normal color, warm/dry BARS Assessment: 4-Calm/No Agitation Procedures/Interventions Suture Size: 4-0 Progress/Results/Core Measures Results/Orders Lab Results Laboratory Tests Test 11/25/22 20:40 11/25/22 20:45 Range/Units Urine Color YELLOW Urine Clarity CLEAR Urine pH 6.5 5-9 Urine Specific [place] <=1.005 1.016-1.022 Urine Protein NEGATIVE NEGATIVE Urine Glucose (UA) NEGATIVE NEGATIVE Urine Ketones NEGATIVE NEGATIVE Urine Nitrite NEGATIVE NEGATIVE Urine Bilirubin NEGATIVE NEGATIVE Urine Urobilinogen 0.2 < = 1.0 MG/DL Urine Leukocyte Esterase NEGATIVE NEGATIVE Urine RBC (Auto) NEGATIVE NEGATIVE Urine RBC NONE /HPF Urine WBC NONE /HPF Urine Squamous Epithelial Cells 2-5 /HPF Urine Crystals NONE /LPF Urine Bacteria NEGATIVE /HPF Urine Casts NONE /LPF Urine Mucus NEGATIVE /LPF Urine Culture Indicated Urine Opiates Screen NEGATIVE NEGATIVE Urine Oxycodone Screen NEGATIVE NEGATIVE Urine Methadone Screen NEGATIVE NEGATIVE Urine Propoxyphene Screen NEGATIVE NEGATIVE Urine Barbiturates Screen NEGATIVE NEGATIVE Ur Tricyclic Antidepressants Screen NEGATIVE NEGATIVE Urine Phencyclidine Screen NEGATIVE NEGATIVE Urine Amphetamines Screen NEGATIVE NEGATIVE Urine Methamphetamines Screen NEGATIVE NEGATIVE Urine Benzodiazepines Screen NEGATIVE NEGATIVE Urine Cocaine Screen NEGATIVE NEGATIVE Urine Cannabinoids Screen POSITIVE H NEGATIVE White Blood Count 16.8 H 4.3-11.0 10^3/uL Red Blood Count 4.95 4.30-5.52 10^6/uL Hemoglobin 14.7 13.3-17.7 g/dL Hematocrit 43 40-54 % Mean Corpuscular Volume 87 80-99 fL Mean Corpuscular Hemoglobin 30 25-34 pg Mean Corpuscular Hemoglobin Concent 34 32-36 g/dL Red Cell Distribution Width 14.3 10.0-14.5 % Platelet Count 318 130-400 10^3/uL Mean Platelet Volume 9.9 9.0-12.2 fL Immature Granulocyte % (Auto) 0 % Neutrophils (%) (Auto) 72 42-75 % Lymphocytes (%) (Auto) 21 12-44 % Monocytes (%) (Auto) 6 0-12 % Eosinophils (%) (Auto) 1 0-10 % Basophils (%) (Auto) 0 0-10 % Neutrophils # (Auto) 12.0 H 1.8-7.8 10^3/uL Lymphocytes # (Auto) 3.5 1.0-4.0 10^3/uL Monocytes # (Auto) 1.0 0.0-1.0 10^3/uL Eosinophils # (Auto) 0.1 0.0-0.3 10^3/uL Basophils # (Auto) 0.1 0.0-0.1 10^3/uL Immature Granulocyte # (Auto) 0.1 0.0-0.1 10^3/uL Neutrophils % (Manual) 66 % Lymphocytes % (Manual) 29 % Monocytes % (Manual) 5 % Sodium Level 136 135-145 MMOL/L Potassium Level 2.8 L 3.6-5.0 MMOL/L Chloride Level 100 98-107 MMOL/L Carbon Dioxide Level 21 21-32 MMOL/L Anion Gap 15 H 5-14 MMOL/L Blood Urea Nitrogen 4 L 7-18 MG/DL Creatinine 0.69 0.60-1.30 MG/DL Estimat Glomerular Filtration Rate 129 BUN/Creatinine Ratio 6 Glucose Level 111 H 70-105 MG/DL Calcium Level 9.7 8.5-10.1 MG/DL Corrected Calcium 9.5 8.5-10.1 MG/DL Total Bilirubin 0.4 0.1-1.0 MG/DL Aspartate Amino Transf (AST/SGOT) 11 5-34 U/L Alanine Aminotransferase (ALT/SGPT) 37 0-55 U/L Alkaline Phosphatase 112 40-136 U/L Total Protein 7.2 6.4-8.2 GM/DL Albumin 4.3 3.2-4.5 GM/DL Salicylates Level < 0.3 L 5.0-20.0 MG/DL Acetaminophen Level < 10 L 10-30 UG/ML Serum Alcohol < 10 <10 MG/DL My Orders Orders - TERRI NORMAN MD Ua Culture If Indicated (11/25/22 20:50) Cbc With Automated Diff (11/25/22 20:50) Comprehensive Metabolic Panel (11/25/22 20:50) Alcohol (11/25/22 20:50) Drug Screen Stat (Urine) (11/25/22 20:50) Acetaminophen (11/25/22 20:50) Salicylate (11/25/22 20:50) Ekg Tracing (11/25/22 20:50) Manual Differential (11/25/22 20:45) Potassium Chloride (Tablet) (Potassium C (11/25/22 21:16) Olanzapine Orally Dissolve Tab (Olanzapi (11/25/22 23:46) Potassium Chloride (Tablet) (Potassium C (11/25/22 23:46) Vital Signs/I&O 11/25/22 11/25/22 20:35 23:47 Temp 36.6 36.6 Pulse 100 100 Resp 18 18 B/P (MAP) 141/85 (103) 141/85 Pulse Ox 98 98 O2 Delivery Room Air Room Air Blood Pressure Mean: 103 Progress Progress Note #1: Progress Note Potential diagnosis of acute psychosis, auditory hallucinations, visual hallucinations, polysubstance abuse, electrolyte imbalance. Obtain electrocardiogram to look for QT prolongation. Urinalysis to look for si gns of infection and urine drug screen. Draw blood to check complete blood count, comprehensive metabolic profile, alcohol level, salicylate level, acetaminophen level. Progress Note #2: Time: 21:08 Progress Note Complete blood count has mild elevation of his white blood cell count to 16.8 with a normal differential. His hemoglobin was not showing anemia at 14.7. Platelets were normal at 318. Urine drug screen was positive for marijuana only. Urinalysis did not show signs of infection or kidney dysfunction. Electrocardiogram showed a normal sinus rhythm and did not show QT prolongation. From review of his EMR he has had prior visits due to methamphetamine abuse. Although his UDS only shows Marijuana he could still have recently used Methamphetamine in the last 2 weeks to help trigger some of his symptoms. He denies current Meth use. He appears medially stable and clear for evaluation by Mental Health. He has mild hypokalemia at 2.8 so will give oral potassium 40 mEq. Salicylate, Acetaminophen and Alcohol levels are all negative. Progress Note #3: Time: 23:33 Progress Note After speaking with the mental health screener from [facility] they agreed on a safety plan. Will prescribe additional potassium since patient's potassium was low. Encouraged to eat potassium rich foods. Follow-up with mental health and follow the safety plan. Give an additional 20 mEq of potassium prior to discharge in addition to a single dose of Zyprexa 5 mg as an anti-psychotic. Initial ECG Impression Date: Nov 25, 2022 Initial ECG Impression Time: 20:56 Initial ECG Rate: 87 Initial ECG Rhythm: Normal Sinus Initial ECG Comparisson: Unchanged (01/01/2022) Comment On my personal interpretation and review his electrocardiogram shows a sinus rhythm with a heart rate of 87 bpm. MA interval [address] elevation. QT interval 359 ms with a QTc interval of 403 ms. Overall appears similar to prior tracing from January 01, 2022. Departure Impression Primary Impression: Acute psychosis Additional Impressions: Hallucinations Hypokalemia Disposition: 01 HOME, SELF-CARE Condition: Stable Departure-Patient Inst. Decision time for Depature: 23:43 Referrals: VIANNEY MARTÍNEZ MD (PCP/Family) Primary Care Physician Patient Instructions: Acute Psychosis (DC), High Potassium Diet, Hypokalemia (DC) Add. Discharge Instructions: Follow the safety plan as agreed upon with screener from [facility] Increase the potassium in your diet. Take the potassium pills for the next few days as well. Follow-up with [facility] for additional help and resources All discharge instructions reviewed with patient and/or family. Voiced understanding. Scripts Potassium Chloride (Potassium Chloride) 20 Meq Tablet.er 20 MEQ PO BID for hypokalemia for 5 Days, #10 TAB 0 Refills Prov: TERRI NORMAN MD 11/25/22 TERRI NORMAN MD Nov 25, 2022 21:08
[2022-11-25 21:13] LABS: ALANINE AMINOTRANSFERASE 37 U/L (0-55); ALKALINE PHOSPHATASE 112 U/L (40-136); BILIRUBIN,TOTAL 0.4 MG/DL (0.1-1.0); BUN/CREATININE RATIO 6; CALCIUM 9.7 MG/DL (8.5-10.1); CARBON DIOXIDE 21 MMOL/L (21-32); CHLORIDE 100 MMOL/L (98-107); CREATININE SERUM 0.69 MG/DL (0.60-1.30); GFR ESTIMATED 129; GLUCOSE 111 MG/DL (70-105); POTASSIUM 2.8 MMOL/L (3.6-5.0); SODIUM 136 MMOL/L (135-145)
[2022-11-25 21:14] LABS: ACETAMINOPHEN < 10 UG/ML (10-30); ALBUMIN 4.3 GM/DL (3.2-4.5); SALICYLATE < 0.3 MG/DL (5.0-20.0); TOTAL PROTEIN 7.2 GM/DL (6.4-8.2)
[2022-11-25] MEDS ORDERED: POTASSIUM CHLORIDE 20 MEQ TABLET PO STA ×2 (21:16→23:46)
[2022-11-25 21:58] LABS: LYMPHOCYTES % (MANUAL) 29 %; MONOCYTES % (MANUAL) 5 %; NEUTROPHILS % (MANUAL) 66 %
[2022-11-25] MEDS ORDERED: POTA-330 PO (23:45)
[2022-11-25] MEDS ORDERED: OLANZapine 5 MG ODT TABLET PO STA (23:46)
[2022-11-25 23:47] VITALS: BP 141/85
== END 2022-11-26 00:04 | disposition home or self-care (01) ==
LOC: EDUNIT# 20:31 → ER FS 20:33
DX: F23 Brief psychotic disorder (principal); E87.6 Hypokalemia; D72.829 Elevated white blood cell count, unspecified; F17.210 Nicotine dependence, cigarettes, uncomplicated
CPT/HCPCS: 36415; 80053; 80306; 81000; 85007; 85027; 93005; 99283; G0480 ×3; 80320; 80329

== ENCOUNTER 2022-11-27 18:42 | Emergency (ER) | payer SELFPAY ==
[~2022-11-27 18:42] MED LIST changes: +POTA-330 PO
[2022-11-27 19:00] LABS: BASOPHILS # (AUTO) 0.1 10^3/uL (0.0-0.1); BASOPHILS % (AUTO) 0 % (0-10); EOSINOPHILS # (AUTO) 0.1 10^3/uL (0.0-0.3); EOSINOPHILS % (AUTO) 1 % (0-10); HEMATOCRIT 41 % (40-54); HEMOGLOBIN 14.6 g/dL (13.3-17.7); LYMPHOCYTES # (AUTO) 2.9 10^3/uL (1.0-4.0); LYMPHOCYTES % (AUTO) 17 % (12-44); MEAN CORPUSCULAR HEMOGLOBIN 30 pg (25-34); MEAN CORPUSCULAR HGB CONC 35 g/dL (32-36); MEAN CORPUSCULAR VOLUME 84 fL (80-99); MEAN PLATELET VOLUME 10.1 fL (9.0-12.2); MONOCYTES # (AUTO) 1.1 10^3/uL (0.0-1.0); MONOCYTES % (AUTO) 6 % (0-12); NEUTROPHILS # (AUTO) 13.1 10^3/uL (1.8-7.8); NEUTROPHILS % (AUTO) 75 % (42-75); PLATELET COUNT 303 10^3/uL (130-400); WHITE BLOOD COUNT 17.4 10^3/uL (4.3-11.0)
[2022-11-27 19:01] LABS: BILIRUBIN,URINE NEGATIVE (NEGATIVE); CLARITY,URINE CLEAR; COLOR,URINE YELLOW; GLUCOSE, URINE (UA) NEGATIVE (NEGATIVE); KETONES,URINE NEGATIVE (NEGATIVE); LEUKOCYTE ESTERASE ,URINE NEGATIVE (NEGATIVE); NITRITE,URINE NEGATIVE (NEGATIVE); PH,URINE 6.5 (5-9); PROTEIN,URINE NEGATIVE (NEGATIVE)
--- NOTE | 2022-11-27 19:05 | ED Psychosocial ---
General Chief Complaint: Psych/Social Disorder Stated Complaint: HOMICIDAL Source: patient History of Present Illness Date Seen by Provider: Nov 27, 2022 Time Seen by Provider: 18:44 Initial Comments 27-year-old male presenting again to the emergency department with complaints of hearing voices. He was seen on November 25 for the same complaints. He was to have an outpatient mental health appointment today but he did not make that. He states he did use marijuana today. He feels like the voices are bothering him now to the point that he is becoming upset and feeling like he could hurt someone. He denies suicidal ideation. The states he is feeling homicidal and like hurting other people because of hearing the voices. He denies having the voices telling him to hurt people. Severity: moderate Associated Symptoms: impaired concentration Allergies and Home Medications Allergies Coded Allergies: strawberry (Unverified Allergy, Unknown, 10/31/14) Patient Home Medication List Home Medication List Reviewed: Yes Amoxicillin/Potassium Clav (Amox Tr-K Clv 875-125 mg Tab) 875 Mg-125 Mg Tablet, 1 EACH PO BID Prescribed by: TERRI NORMAN on 12/23/212305 Cephalexin (Cephalexin) 500 Mg Tablet, 500 MG PO TID Prescribed by: PAPITO JORGENSEN on 10/11/20 0517 Hydrocodone/Acetaminophen (Hydrocodone-Acetamin 5-325 mg) 5 Mg-325 Mg Tablet, 1 TAB PO Q6H PRN for PAIN-SEVERE (8-10) Prescribed by: TERRI NORMAN on 12/23/21 230 Ibuprofen (Ibuprofen) 800 Mg Tablet, 800 MG PO Q8H PRN for PAIN Prescribed by: TERRI NORMAN on 12/23/21 230 Potassium Chloride (Potassium Chloride) 20 Meq Tablet.er, 20 MEQ PO BID Prescribed by: TERRI NORMAN on 11/25/22 2345 Review of Systems Constitutional: No chills, No fever EENTM: no symptoms reported Respiratory: no symptoms reported Cardiovascular: no symptoms reported Gastrointestinal: no symptoms reported Genitourinary: no symptoms reported Musculoskeletal: no symptoms reported Skin: no symptoms reported Psychiatric/Neurological: See HPI Past Boduyan-Pmqted-Mzxmaz Hx Patient Social History Tobacco Use?: Yes Tobacco type used: Cigarettes Smoking Status: Current Everyday Smoker Substance use?: Yes Substance type: Marijuana Pt feels they are or have been: No Immunizations Up To Date Tetanus Booster (TDap): More than 5yrs First/Initial COVID19 Vaccinat: Received with unknown date Second COVID19 Vaccination Jc: Received with unknown date Seasonal Allergies Seasonal Allergies: No Past Medical History Surgery/Hospitalization HX: Methamphetamine abuse, recurrent dental infections Surgeries: Yes (L wrist; knee) Orthopedic Respiratory: No Cardiac: No Hypertension Neurological: No Reproductive Disorders: No Sexually Transmitted Disease: No Genitourinary: No Gastrointestinal: No Musculoskeletal: Yes Arthritis Endocrine: No HEENT: No Cancer: No Psychosocial: Yes Sleep Difficulties, Anxiety, Bipolar, Schizophrenia, Depression Integumentary: No Blood Disorders: No Physical Exam Vital Signs - First Documented 11/27/22 18:45 Pulse 102 Resp 18 B/P (MAP) 149/101 (117) Pulse Ox 98 O2 Delivery Room Air Capillary Refill : Height, Weight, BMI Height: 6'1.00" Weight: 250lbs. oz. 113.360087jt; 41.00 BMI Method:Stated General Appearance: WD/WN, no apparent distress HEENT: PERRL/EOMI, pharynx normal Respiratory: chest non-tender, lungs clear, normal breath sounds Cardiovascular: normal peripheral pulses, regular rate, rhythm Gastrointestinal: normal bowel sounds, non tender, soft, no pulsatile mass Extremities: normal range of motion, non-tender, normal capillary refill Neurologic/Psychiatric: alert, oriented x 3 Appearance/Memory: disheveled Behavior/Eye Contact: cooperative, good eye contact, decreased rate of speech Thoughts/Hallucinations: auditory hallucinations Skin: normal color, warm/dry Procedures/Interventions Suture Size: 4-0 Progress/Results/Core Measures Results/Orders Lab Results Laboratory Tests Test 11/27/22 18:46 11/27/22 18:56 Range/Units White Blood Count 17.4 H 4.3-11.0 10^3/uL Red Blood Count 4.95 4.30-5.52 10^6/uL Hemoglobin 14.6 13.3-17.7 g/dL Hematocrit 41 40-54 % Mean Corpuscular Volume 84 80-99 fL Mean Corpuscular Hemoglobin 30 25-34 pg Mean Corpuscular Hemoglobin Concent 35 32-36 g/dL Red Cell Distribution Width 14.2 10.0-14.5 % Platelet Count 303 130-400 10^3/uL Mean Platelet Volume 10.1 9.0-12.2 fL Immature Granulocyte % (Auto) 1 % Neutrophils (%) (Auto) 75 42-75 % Lymphocytes (%) (Auto) 17 12-44 % Monocytes (%) (Auto) 6 0-12 % Eosinophils (%) (Auto) 1 0-10 % Basophils (%) (Auto) 0 0-10 % Neutrophils # (Auto) 13.1 H 1.8-7.8 10^3/uL Lymphocytes # (Auto) 2.9 1.0-4.0 10^3/uL Monocytes # (Auto) 1.1 H 0.0-1.0 10^3/uL Eosinophils # (Auto) 0.1 0.0-0.3 10^3/uL Basophils # (Auto) 0.1 0.0-0.1 10^3/uL Immature Granulocyte # (Auto) 0.1 0.0-0.1 10^3/uL Urine Color YELLOW Urine Clarity CLEAR Urine pH 6.5 5-9 Urine Specific [place] <=1.005 1.016-1.022 Urine Protein NEGATIVE NEGATIVE Urine Glucose (UA) NEGATIVE NEGATIVE Urine Ketones NEGATIVE NEGATIVE Urine Nitrite NEGATIVE NEGATIVE Urine Bilirubin NEGATIVE NEGATIVE Urine Urobilinogen 0.2 < = 1.0 MG/DL Urine Leukocyte Esterase NEGATIVE NEGATIVE Urine RBC (Auto) NEGATIVE NEGATIVE Urine RBC NONE /HPF Urine WBC NONE /HPF Urine Crystals NONE /LPF Urine Bacteria NEGATIVE /HPF Urine Casts NONE /LPF Urine Mucus NEGATIVE /LPF Urine Culture Indicated NO Sodium Level 141 135-145 MMOL/L Potassium Level 3.4 L 3.6-5.0 MMOL/L Chloride Level 103 98-107 MMOL/L Carbon Dioxide Level 20 L 21-32 MMOL/L Anion Gap 18 H 5-14 MMOL/L Blood Urea Nitrogen 4 L 7-18 MG/DL Creatinine 0.73 0.60-1.30 MG/DL Estimat Glomerular Filtration Rate 127 BUN/Creatinine Ratio 5 Glucose Level 109 H 70-105 MG/DL Calcium Level 9.5 8.5-10.1 MG/DL Corrected Calcium 9.3 8.5-10.1 MG/DL Total Bilirubin 0.3 0.1-1.0 MG/DL Aspartate Amino Transf (AST/SGOT) 14 5-34 U/L Alanine Aminotransferase (ALT/SGPT) 42 0-55 U/L Alkaline Phosphatase 111 40-136 U/L Total Protein 7.1 6.4-8.2 GM/DL Albumin 4.3 3.2-4.5 GM/DL Salicylates Level < 5.0 L 5.0-20.0 MG/DL Urine Opiates Screen NEGATIVE NEGATIVE Urine Oxycodone Screen NEGATIVE NEGATIVE Urine Methadone Screen NEGATIVE NEGATIVE Urine Propoxyphene Screen NEGATIVE NEGATIVE Acetaminophen Level < 10 L 10-30 UG/ML Urine Barbiturates Screen NEGATIVE NEGATIVE Ur Tricyclic Antidepressants Screen NEGATIVE NEGATIVE Urine Phencyclidine Screen NEGATIVE NEGATIVE Urine Amphetamines Screen NEGATIVE NEGATIVE Urine Methamphetamines Screen NEGATIVE NEGATIVE Urine Benzodiazepines Screen NEGATIVE NEGATIVE Urine Cocaine Screen NEGATIVE NEGATIVE Urine Cannabinoids Screen POSITIVE H NEGATIVE Serum Alcohol < 10 <10 MG/DL SARS-CoV-2 RNA (RT-PCR) Not Detected Not Detecte My Orders Orders - TERRI NORMAN MD Ua Culture If Indicated (11/27/22 18:45) Cbc With Automated Diff (11/27/22 18:45) Comprehensive Metabolic Panel (11/27/22 18:45) Alcohol (11/27/22 18:45) Drug Screen Stat (Urine) (11/27/22 18:45) Acetaminophen (11/27/22 18:45) Salicylate (11/27/22 18:45) Bh Status Checks/Observation O Q15M (11/27/22 18:45) Covid 19 Inhouse Test (11/27/22 18:45) Olanzapine Orally Dissolve Tab (Olanzapi (11/27/22 21:52) Vital Signs/I&O 11/27/22 18:45 Pulse 102 Resp 18 B/P (MAP) 149/101 (117) Pulse Ox 98 O2 Delivery Room Air Progress Progress Note #1: Progress Note Potential diagnosis of acute psychosis, substance abuse, homicidal ideation Obtain screening mental health labs and COVID swab. Send complete blood count, comprehensive metabolic profile, urinalysis, urine drug screen, alcohol, acetaminophen, salicylate levels. Electrocardiogram from Sunday, November 25 did not show QT prolongation so we will defer repeating that today. He appears to be medically stable and cleared for mental health evaluation. Once the labs are back for mental health will contact them to obtain a screening. Progress Note #2: Time: 19:30 Progress Note Patient continues to have an elevated white blood cell count of 17.4 but no specific source of infection and normal differential so this may be more stress related. His comprehensive metabolic profile shows improvement of the potassium up to 3.4 it was 2.8 this weekend. His urinalysis was not showing infection. His comprehensive metabolic profile otherwise did not have acute significant abnormalities. His urine drug screen was only positive for marijuana. His alcohol, salicylate, acetaminophen levels were all negative. He is negative for COVID. Medically he is stable and clear for evaluation with mental health. Will contact [facility] to obtain a mental health screening. Progress Note #3: Time: 21:22 Progress Note Mental health called about the screening for the patient. 2151 after completing his mental health screening the [facility] provider advised us that they were going to work on voluntary placement for medication review and adjustment. They will fax over the assessment but they will also work on trying to find inpatient placement for him. Progress Note #4: Time: 01:[address] Hsieh from [facility] called about the patient. I reviewed the patient presentation and history as well as pertinent labs. She accepted him for transfer. They will call back with a room assignment but did want to find out when he would be transported. Will check with [facility] to find out when a transport would be available for the patient, If it would be yet this night or if it would have to wait until morning. Departure Impression Primary Impression: Acute psychosis Additional Impressions: Auditory hallucinations Homicidal ideation Disposition: 65 XFER TO PSYCH HOSP/UNIT Condition: Stable Transfer Medically Cleared for Xfer: Yes Transfer Reason: Exceeds level of care (Needs psychiatric care) Time Spoke to Accepting Phy: 01:[address] Hsieh from [facility] called about the patient. I reviewed the patient presentation and history as well as pertinent labs. She accepted him for transfer. They will call back with a room assignment but did want to find out when he would be transported. Will check with [facility] to find out when a transport would be available for the patient, If it would be yet this night or if it would have to wait until morning. Transfer Facility: [facility] Method of Transfer: Private Vehicle ([facility]) Departure-Patient Inst. Referrals: SELF,VIANNEY ACPPS (PCP/Family) Primary Care Physician TERRI NORMAN MD Nov 27, 2022 19:05
[2022-11-27 19:22] LABS: BACTERIA,URINE NEGATIVE /HPF
[2022-11-27 19:23] LABS: AMPHETAMINE SCREEN, URINE NEGATIVE (NEGATIVE); BARBITURATE SCREEN URINE NEGATIVE (NEGATIVE); BENZODIAZEPINES SCREEN URINE NEGATIVE (NEGATIVE); CANNABINOID SCREEN, URINE POSITIVE (NEGATIVE); COCAINE SCREEN URINE NEGATIVE (NEGATIVE); METHADONE STAT NEGATIVE (NEGATIVE); OPIATE SCREEN URINE NEGATIVE (NEGATIVE); OXYCODONE STAT NEGATIVE (NEGATIVE); TRICYCLIC ANTIDEPRESSANTS SCRE NEGATIVE (NEGATIVE)
[2022-11-27 19:24] LABS: PROPOXYPHENE STAT NEGATIVE (NEGATIVE)
[2022-11-27 19:29] LABS: ALANINE AMINOTRANSFERASE 42 U/L (0-55); ALBUMIN 4.3 GM/DL (3.2-4.5); ALKALINE PHOSPHATASE 111 U/L (40-136); BILIRUBIN,TOTAL 0.3 MG/DL (0.1-1.0); BUN/CREATININE RATIO 5; CALCIUM 9.5 MG/DL (8.5-10.1); CARBON DIOXIDE 20 MMOL/L (21-32); CHLORIDE 103 MMOL/L (98-107); CREATININE SERUM 0.73 MG/DL (0.60-1.30); GFR ESTIMATED 127; GLUCOSE 109 MG/DL (70-105); POTASSIUM 3.4 MMOL/L (3.6-5.0); SODIUM 141 MMOL/L (135-145); TOTAL PROTEIN 7.1 GM/DL (6.4-8.2)
[2022-11-27 19:30] LABS: ACETAMINOPHEN < 10 UG/ML (10-30); SALICYLATE < 5.0 MG/DL (5.0-20.0)
[2022-11-27] MEDS ORDERED: OLANZapine 5 MG ODT TABLET PO STA (21:52)
[2022-11-28 02:27] VITALS: BP 148/96
== END 2022-11-28 02:53 ==
LOC: EDUNIT# 18:42 → ER FS 18:44
DX: F23 Brief psychotic disorder (principal); R45.850 Homicidal ideations; F17.210 Nicotine dependence, cigarettes, uncomplicated; Z20.822 Contact with and (suspected) exposure to COVID-19
CPT/HCPCS: 36415; 80053; 80306; 81000; 85025; 87636; 99285; G0480 ×3; 80320; 80329

== ENCOUNTER 2022-12-16 15:25 | Emergency (ER) | payer SELFPAY ==
[~2022-12-16] VITALS: Ht 185.5 cm; Wt 124.1 kg
[2022-12-16] MEDS ORDERED: KETOROLAC INJ 15 MG/ML VIAL IVP STA (15:34)
[2022-12-16] MEDS ORDERED: NS IV 1000 ML 1,000 ML IV STA ×2 (15:34→16:16)
[2022-12-16 15:47] LABS: BASOPHILS # (AUTO) 0.1 10^3/uL (0.0-0.1); BASOPHILS % (AUTO) 0 % (0-10); EOSINOPHILS # (AUTO) 0.7 10^3/uL (0.0-0.3); EOSINOPHILS % (AUTO) 3 % (0-10); HEMATOCRIT 41 % (40-54); HEMOGLOBIN 13.8 g/dL (13.3-17.7); LYMPHOCYTES # (AUTO) 2.5 10^3/uL (1.0-4.0); LYMPHOCYTES % (AUTO) 13 % (12-44); MEAN CORPUSCULAR HEMOGLOBIN 30 pg (25-34); MEAN CORPUSCULAR HGB CONC 34 g/dL (32-36); MEAN CORPUSCULAR VOLUME 88 fL (80-99); MEAN PLATELET VOLUME 9.6 fL (9.0-12.2); MONOCYTES # (AUTO) 1.6 10^3/uL (0.0-1.0); MONOCYTES % (AUTO) 8 % (0-12); NEUTROPHILS % (AUTO) 75 % (42-75); PLATELET COUNT 353 10^3/uL (130-400)
[2022-12-16 15:56] LABS: INR 0.9 (0.8-1.4); PROTHROMBIN TIME PATIENT 12.3 SEC (12.2-14.7)
[2022-12-16 16:04] LABS: BILIRUBIN,URINE NEGATIVE (NEGATIVE); CLARITY,URINE CLEAR; COLOR,URINE YELLOW; GLUCOSE, URINE (UA) NEGATIVE (NEGATIVE); KETONES,URINE NEGATIVE (NEGATIVE); LEUKOCYTE ESTERASE ,URINE NEGATIVE (NEGATIVE); NITRITE,URINE NEGATIVE (NEGATIVE); PROTEIN,URINE NEGATIVE (NEGATIVE)
--- NOTE | 2022-12-16 16:05 | ED General ---
General Chief Complaint: Chest Pain Stated Complaint: CHEST PAIN Source of Information: Patient History of Present Illness Date Seen by Provider: Dec 16, 2022 Time Seen by Provider: 15:26 Initial Comments 27-year-old male presenting with complaints of not feeling well and having pain in his chest for the last few days. He states he was seen a week ago at urgent care and told he had a viral infection. He also has been having some diarrhea. He could not remember if they told him if he had COVID or flu. He denies having nausea or vomiting. He has not taken anything for pain today. He denies having pain or burning with urination. Timing/Duration: 3-4 Days Severity: Moderate Modifying Factors: worse with Movement Associated Systoms: Chest Pain (Tightness in his chest), Cough; No Diaphoresis; Fever/Chills (Objective), Headaches, Loss of Appetite, Malaise; No Nausea/Vomiting, No Rash, No Seizure; Shortness of Air; No Syncope, No Weakness Allergies and Home Medications Allergies Coded Allergies: strawberry (Unverified Allergy, Unknown, 10/31/14) Patient Home Medication List Home Medication List Reviewed: Yes Amoxicillin/Potassium Clav (Amox Tr-K Clv 875-125 mg Tab) 875 Mg-125 Mg Tablet, 1 EACH PO BID Prescribed by: TERRI NORMAN on 12/23/212305 Azithromycin (Azithromycin) 250 Mg Tablet, 250 MG PO DAILY Prescribed by: TERRI NORMAN on 12/16/221816 Cephalexin (Cephalexin) 500 Mg Tablet, 500 MG PO TID Prescribed by: PAPITO JORGENSEN on 10/11/20 0517 Hydrocodone/Acetaminophen (Hydrocodone-Acetamin 5-325 mg) 5 Mg-325 Mg Tablet, 1 TAB PO Q6H PRN for PAIN-SEVERE (8-10) Prescribed by: TERRI NORMAN on 12/23/212306 Ibuprofen (Ibuprofen) 800 Mg Tablet, 800 MG PO Q8H PRN for PAIN Prescribed by: TERRI NORMAN on 12/23/212305 Potassium Chloride (Potassium Chloride) 20 Meq Tablet.er, 20 MEQ PO BID Prescribed by: TERRI NORMAN on 11/25/22 7405 Review of Systems Review of Systems Constitutional: see HPI EENTM: No epistaxis, No nose congestion Respiratory: see HPI; No hemoptysis Cardiovascular: see HPI Gastrointestinal: diarrhea; No nausea, No vomiting Genitourinary: No dysuria Musculoskeletal: no symptoms reported Skin: No rash Psychiatric/Neurological: Anxiety Past Ukyjekw-Fqatar-Wostlj Hx Patient Social History Tobacco Use?: Yes Tobacco type used: Cigarettes Smoking Status: Current Everyday Smoker Substance use?: Yes Substance type: Marijuana Alcohol Use?: No Pt feels they are or have been: No Immunizations Up To Date Tetanus Booster (TDap): More than 5yrs First/Initial COVID19 Vaccinat: Received with unknown date Second COVID19 Vaccination Jc: Received with unknown date Third COVID19 Vaccination Date: Received with unknown date Seasonal Allergies Seasonal Allergies: No Past Medical History Surgery/Hospitalization HX: Methamphetamine abuse, recurrent dental infections Surgeries: Yes (L wrist; knee) Orthopedic Respiratory: No Cardiac: No Hypertension Neurological: No Reproductive Disorders: No Sexually Transmitted Disease: No Genitourinary: No Gastrointestinal: No Musculoskeletal: Yes Arthritis Endocrine: No HEENT: No Cancer: No Psychosocial: Yes Sleep Difficulties, Anxiety, Bipolar, Schizophrenia, Depression Integumentary: No Blood Disorders: No Physical Exam Vital Signs Vital Signs - First Documented 12/16/22 15:35 Temp 37.0 Pulse 119 Resp 26 B/P (MAP) 149/84 (105) Pulse Ox 94 O2 Delivery Room Air Capillary Refill : Less Than 3 Seconds Height, Weight, BMI Height: 6'1.00" Weight: 250lbs. oz. 113.240636bd; 41.00 BMI Method:Stated General Appearance: No Apparent Distress, Obese, Other (Patient is slow to r espond and answer questions) HEENT: PERRL/EOMI, Pharynx Normal Neck: Full Range of Motion, Normal Inspection, Non Tender, Supple Respiratory: Chest Non Tender, Lungs Clear, Normal Breath Sounds, No Accessory Muscle Use, No Respiratory Distress Cardiovascular: Normal Peripheral Pulses, Tachycardia Gastrointestinal: Normal Bowel Sounds, No Pulsatile Mass, Non Tender, Soft Back: No CVA Tenderness, No Vertebral Tenderness Extremity: Normal Capillary Refill, Normal Inspection, No Pedal Edema Neurologic/Psychiatric: Alert, Oriented x3, furniture restorer II-XII Norm as Tested Skin: Normal Color, Warm/Dry Focused Exam Lactate Level 12/16/22 15:40: Lactic Acid Level 3.32*H 12/16/22 17:36: Lactic Acid Level 1.78 Lactic Acid Level Laboratory Tests Test 12/16/22 15:40 12/16/22 17:36 Lactic Acid Level 3.32 MMOL/L (0.50-2.00) *H 1.78 MMOL/L (0.50-2.00) Procedures/Interventions Suture Size: 4-0 Progress/Results/Core Measures Suspected Sepsis SIRS Temperature: Pulse: Respiratory Rate: Laboratory Tests 12/16/22 15:40: White Blood Count 20.0H Blood Pressure / Mean: 12/16/22 15:40: Lactic Acid Level 3.32*H 12/16/22 17:36: Lactic Acid Level 1.78 Laboratory Tests 12/16/22 15:40: Creatinine 0.68, INR Comment 0.9, Platelet Count 353, Total Bilirubin 0.2 Results/Orders Lab Results Laboratory Tests Test 12/16/22 15:40 12/16/22 17:36 Range/Units White Blood Count 20.0 H 4.3-11.0 10^3/uL Red Blood Count 4.64 4.30-5.52 10^6/uL Hemoglobin 13.8 13.3-17.7 g/dL Hematocrit 41 40-54 % Mean Corpuscular Volume 88 80-99 fL Mean Corpuscular Hemoglobin 30 25-34 pg Mean Corpuscular Hemoglobin Concent 34 32-36 g/dL Red Cell Distribution Width 14.9 H 10.0-14.5 % Platelet Count 353 130-400 10^3/uL Mean Platelet Volume 9.6 9.0-12.2 fL Immature Granulocyte % (Auto) 1 % Neutrophils (%) (Auto) 75 42-75 % Lymphocytes (%) (Auto) 13 12-44 % Monocytes (%) (Auto) 8 0-12 % Eosinophils (%) (Auto) 3 0-10 % Basophils (%) (Auto) 0 0-10 % Neutrophils # (Auto) 15.0 H 1.8-7.8 10^3/uL Lymphocytes # (Auto) 2.5 1.0-4.0 10^3/uL Monocytes # (Auto) 1.6 H 0.0-1.0 10^3/uL Eosinophils # (Auto) 0.7 H 0.0-0.3 10^3/uL Basophils # (Auto) 0.1 0.0-0.1 10^3/uL Immature Granulocyte # (Auto) 0.1 0.0-0.1 10^3/uL Neutrophils % (Manual) 77 % Lymphocytes % (Manual) 17 % Monocytes % (Manual) 6 % Prothrombin Time 12.3 12.2-14.7 SEC INR Comment 0.9 0.8-1.4 Activated Partial Thromboplast Time 24 24-35 SEC Urine Color YELLOW Urine Clarity CLEAR Urine pH 7.0 5-9 Urine Specific [place] <=1.005 1.016-1.022 Urine Protein NEGATIVE NEGATIVE Urine Glucose (UA) NEGATIVE NEGATIVE Urine Ketones NEGATIVE NEGATIVE Urine Nitrite NEGATIVE NEGATIVE Urine Bilirubin NEGATIVE NEGATIVE Urine Urobilinogen 0.2 < = 1.0 MG/DL Urine Leukocyte Esterase NEGATIVE NEGATIVE Urine RBC (Auto) NEGATIVE NEGATIVE Urine RBC 10-25 H /HPF Urine WBC NONE /HPF Urine Squamous Epithelial Cells 2-5 /HPF Urine Crystals NONE /LPF Urine Bacteria NEGATIVE /HPF Urine Casts NONE /LPF Urine Mucus LARGE H /LPF Urine Culture Indicated NO Sodium Level 137 135-145 MMOL/L Potassium Level 3.7 3.6-5.0 MMOL/L Chloride Level 101 98-107 MMOL/L Carbon Dioxide Level 21 21-32 MMOL/L Anion Gap 15 H 5-14 MMOL/L Blood Urea Nitrogen 7 7-18 MG/DL Creatinine 0.68 0.60-1.30 MG/DL Estimat Glomerular Filtration Rate 130 BUN/Creatinine Ratio 10 Glucose Level 120 H 70-105 MG/DL Lactic Acid Level 3.32 *H 1.78 0.50-2.00 MMOL/L Calcium Level 9.2 8.5-10.1 MG/DL Corrected Calcium 9.0 8.5-10.1 MG/DL Magnesium Level 1.9 1.6-2.4 MG/DL Total Bilirubin 0.2 0.1-1.0 MG/DL Aspartate Amino Transf (AST/SGOT) 16 5-34 U/L Alanine Aminotransferase (ALT/SGPT) 52 0-55 U/L Alkaline Phosphatase 110 40-136 U/L Troponin I < 0.30 <0.30 NG/ML Pro-B-Type Natriuretic Peptide < 36.0 <125.0 PG/ML Total Protein 7.2 6.4-8.2 GM/DL Albumin 4.3 3.2-4.5 GM/DL Lipase 27 8-78 U/L Urine Opiates Screen NEGATIVE NEGATIVE Urine Oxycodone Screen NEGATIVE NEGATIVE Urine Methadone Screen NEGATIVE NEGATIVE Urine Propoxyphene Screen NEGATIVE NEGATIVE Urine Barbiturates Screen NEGATIVE NEGATIVE Ur Tricyclic Antidepressants Screen NEGATIVE NEGATIVE Urine Phencyclidine Screen NEGATIVE NEGATIVE Urine Amphetamines Screen NEGATIVE NEGATIVE Urine Methamphetamines Screen NEGATIVE NEGATIVE Urine Benzodiazepines Screen NEGATIVE NEGATIVE Urine Cocaine Screen NEGATIVE NEGATIVE Urine Cannabinoids Screen POSITIVE H NEGATIVE Influenza Type A (RT-PCR) Not Detected Not Detecte Influenza Type B (RT-PCR) Not Detected Not Detecte SARS-CoV-2 RNA (RT-PCR) Not Detected Not Detecte My Orders Orders - TERRI NORMAN MD Cbc With Automated Diff (12/16/22 15:34) Magnesium (12/16/22 15:34) Chest 1 View Ap/Pa Only (12/16/22 15:34) Ekg Tracing (12/16/22 15:34) Comprehensive Metabolic Panel (12/16/22 15:34) Protime With Inr (12/16/22 15:34) Partial Thromboplastin Time (12/16/22 15:34) O2 (12/16/22 15:34) Monitor-Rhythm Ecg Trace Only (12/16/22 15:34) Ed Iv/Invasive Line Start (12/16/22 15:34) Lipase (12/16/22 15:34) Troponin I Fs (12/16/22 15:34) Probnp Fs (12/16/22 15:34) Ns Iv 1000 Ml (Ns Iv 1000 Ml) (12/16/22 15:34) Ketorolac Injection (Ketorolac Injection (12/16/22 15:34) Covid 19 Inhouse Test (12/16/22 15:34) Blood Culture (12/16/22 15:34) Influenza A And B By Pcr (12/16/22 15:34) Lactic Acid Analyzer (12/16/22 15:34) Manual Differential (12/16/22 15:40) Ua Culture If Indicated (12/16/22 15:58) Drug Screen Stat (Urine) (12/16/22 15:58) Ceftriaxone Iv/Im (Ceftriaxone Iv/Im) (12/16/22 16:16) Azithromycin Tablet (Azithromycin Tabl (12/16/22 16:16) Ns Iv 1000 Ml (Ns Iv 1000 Ml) (12/16/22 16:16) Vital Signs/I&O 12/16/22 12/16/22 15:35 18:18 Temp 37.0 Pulse 119 72 Resp 26 16 B/P (MAP) 149/84 (105) 127/82 Pulse Ox 94 97 O2 Delivery Room Air Room Air Capillary Refill : Less Than 3 Seconds Progress Note #1: Progress Note Differential diagnosis includes COVID, pneumonia, influenza, viral syndrome, sepsis, dehydration. Establish peripheral IV access and send labs for complete blood count, comprehensive metabolic profile, lipase, blood cultures, lactic acid. Urinalysis and urine drug screen to look for other reasons that he could be tachycardic. Administer normal saline 1 L IV fluid bolus for hydration and tachycardia. Obtain electrocardiogram to look for acute pathology Progress Note #2: Progress Note Labs showed elevated white blood cell count of 20,000 with a normal differential. His comprehensive metabolic profile had elevated lactic acid to 3.32. Otherwise he had no acute significant electrolyte abnormality. His swab for COVID and influenza were all negative. On my review of his 1 view chest x- ray I did not appreciate any acute infiltrate. His electrocardiogram showed sinus tachycardia without ischemia. His troponin was negative. Lipase is also negative. His urinalysis did not show leukocyte esterase or nitrites because indication of a UTI. His heart rate was improving with the IV fluids for hydration and he was starting to feel better. We will repeat another liter of fluid as well as treat with Rocephin and Zithromax for possible bacterial infection or pneumonia. Repeat the lactic acid after improved hydration. Progress Note #3: Progress Note After the additional liter of fluid a repeat lactic acid was improved down to 1.78. Patient was feeling better. Will discharge on Zithromax to finish out a course of a Z-Isaiah encourage fluids and hydration. Check back with the clinic if worsening or not improving. ECG Initial ECG Impression Date: Dec 16, 2022 Initial ECG Impression Time: 15:32 Initial ECG Rate: 118 Initial ECG Rhythm: S.Tach Initial ECG Comparisson: Changed (Now has tachycardia versus tracing from 11/25/2022) Comment On my personal interpretation and review the electrocardiogram shows sinus tachycardia with a heart rate of [address] elevation. TN interval 159 ms. QT interval 299 ms with a QTc interval 369 ms. Overall appears similar to tracing from 11/25/2022 other than he has tachycardia now that he was sinus rhythm heart rate in the 80s in October. Diagnostic Imaging Diagonstic Imaging: Xray Plain Films/CT/US/NM/MRI: chest Comments [facility]. [place], [place] NAME: ANTONETTE MAGALLANES [facility] REC#: [id number] PT STATUS: REG ER : 1995 PHYSICIAN: TERRI NORMAN MD ADMIT DATE: 12/16/22/ER FS Signed Date of Exam:12/16/22 CHEST 1 VIEW AP/PA ONLY CHEST 1 VIEW AP/PA ONLY Indication: Chest pain. Comparison: 01/19/2019 Findings: No focal airspace disease in the visualized lungs. No pleural effusion or pneumothorax. Normal cardiomediastinal silhouette. Impression: 1. No acute cardiopulmonary process by portable radiography. Dictated by: Dictated on workstation # [id number] Dict: 12/16/22 1624 Trans: 12/16/22 1624 [facility] [id number] Interpreted by: CAMILLE TAYLOR MD Electronically signed by: CAMILLE TAYLOR MD 12/16/22 1624 Reviewed: Reviewed by Me Departure Impression Primary Impression: Upper respiratory infection Qualified Codes: J06.9 - Acute upper respiratory infection, unspecified Additional Impression: Dehydration Disposition: 01 HOME, SELF-CARE Condition: Improved Departure-Patient Inst. Decision time for Depature: 18:17 Referrals: VIANNEY MARTÍNEZ MD (PCP/Family) Primary Care Physician Patient Instructions: Dehydration, Adult ED, Upper Respiratory Infection ED, Why Water Is Important to Health Add. Discharge Instructions: Try to stay well-hydrated and drink more water and electrolyte drinks. Take the full course of antibiotics to help treat for possible bacterial infection. Check back with the clinic if not improving by Sunday or of this week. All discharge instructions reviewed with patient and/or family. Voiced understanding. Scripts Azithromycin (Azithromycin) 250 Mg Tablet 250 MG PO DAILY for respiratory infection for 4 Days, #4 TAB 0 Refills Prov: TERRI NORMAN MD 12/16/22 TERRI NORMAN MD Dec 16, 2022 16:05
[2022-12-16 16:11] LABS: BACTERIA,URINE NEGATIVE /HPF
[2022-12-16 16:13] LABS: ALANINE AMINOTRANSFERASE 52 U/L (0-55); ALBUMIN 4.3 GM/DL (3.2-4.5); ALKALINE PHOSPHATASE 110 U/L (40-136); BILIRUBIN,TOTAL 0.2 MG/DL (0.1-1.0); BUN/CREATININE RATIO 10; CALCIUM 9.2 MG/DL (8.5-10.1); CARBON DIOXIDE 21 MMOL/L (21-32); CHLORIDE 101 MMOL/L (98-107); CREATININE SERUM 0.68 MG/DL (0.60-1.30); GFR ESTIMATED 130; GLUCOSE 120 MG/DL (70-105); LIPASE 27 U/L (8-78); MAGNESIUM 1.9 MG/DL (1.6-2.4); POTASSIUM 3.7 MMOL/L (3.6-5.0); SODIUM 137 MMOL/L (135-145); TOTAL PROTEIN 7.2 GM/DL (6.4-8.2)
[2022-12-16 16:15] LABS: AMPHETAMINE SCREEN, URINE NEGATIVE (NEGATIVE); BARBITURATE SCREEN URINE NEGATIVE (NEGATIVE); BENZODIAZEPINES SCREEN URINE NEGATIVE (NEGATIVE); CANNABINOID SCREEN, URINE POSITIVE (NEGATIVE); COCAINE SCREEN URINE NEGATIVE (NEGATIVE); METHADONE STAT NEGATIVE (NEGATIVE); OPIATE SCREEN URINE NEGATIVE (NEGATIVE); OXYCODONE STAT NEGATIVE (NEGATIVE); PROPOXYPHENE STAT NEGATIVE (NEGATIVE); TRICYCLIC ANTIDEPRESSANTS SCRE NEGATIVE (NEGATIVE)
[2022-12-16] MEDS ORDERED: cefTRIAXone IV/IM 1,000 MG in NS (IVPB) 50 ML 50 ML IV STA (16:16)
[2022-12-16] MEDS ORDERED: AZITHROMYCIN 250 MG TABLET PO STA (16:16)
[2022-12-16 16:18] LABS: LYMPHOCYTES % (MANUAL) 17 %; MONOCYTES % (MANUAL) 6 %; NEUTROPHILS % (MANUAL) 77 %
--- NOTE | 2022-12-16 16:26 | Diagnostic Imaging Report ---
CHEST 1 VIEW AP/PA ONLY Indication: Chest pain. Comparison: 01/19/2019 Findings: No focal airspace disease in the visualized lungs. No pleural effusion or pneumothorax. Normal cardiomediastinal silhouette. Impression: 1. No acute cardiopulmonary process by portable radiography. Dictated by: Dictated on workstation # [id number]
[2022-12-16] MEDS ORDERED: AZIT250T12 PO (18:17)
[2022-12-16 18:18] VITALS: BP 127/82
== END 2022-12-16 18:23 | disposition home or self-care (01) ==
LOC: EDUNIT# 15:25 → ER FS 15:26
DX: J06.9 Acute upper respiratory infection, unspecified (principal); E86.0 Dehydration; R00.0 Tachycardia, unspecified; E66.9 Obesity, unspecified; F17.210 Nicotine dependence, cigarettes, uncomplicated; Z68.41 Body mass index [BMI] 40.0-44.9, adult; Z20.822 Contact with and (suspected) exposure to COVID-19
CPT/HCPCS: 36415; 71045; 80053; 80306; 81000; 83605; 83690; 83735; 83880; 84484; 85007; 85027; 85610; 85730; 87040; 87636; 93005; 93041

== ENCOUNTER 2023-01-18 17:41 | Emergency (ER) | payer MEDICAID, OTHER ==
[~2023-01-18] VITALS: Ht 185 cm; Wt 117.0 kg
[2023-01-18 17:41] VITALS: BP 157/92
[~2023-01-18 17:41] MED LIST changes: +AZIT250T12 PO
[2023-01-18 18:06] LABS: BASOPHILS # (AUTO) 0.1 10^3/uL (0.0-0.1); BASOPHILS % (AUTO) 0 % (0-10); EOSINOPHILS # (AUTO) 0.2 10^3/uL (0.0-0.3); EOSINOPHILS % (AUTO) 1 % (0-10); HEMATOCRIT 43 % (40-54); HEMOGLOBIN 14.6 g/dL (13.3-17.7); LYMPHOCYTES # (AUTO) 2.7 10^3/uL (1.0-4.0); LYMPHOCYTES % (AUTO) 15 % (12-44); MEAN CORPUSCULAR HEMOGLOBIN 30 pg (25-34); MEAN CORPUSCULAR HGB CONC 34 g/dL (32-36); MEAN CORPUSCULAR VOLUME 89 fL (80-99); MEAN PLATELET VOLUME 9.8 fL (9.0-12.2); MONOCYTES # (AUTO) 1.4 10^3/uL (0.0-1.0); MONOCYTES % (AUTO) 8 % (0-12); NEUTROPHILS # (AUTO) 13.2 10^3/uL (1.8-7.8); NEUTROPHILS % (AUTO) 75 % (42-75); PLATELET COUNT 323 10^3/uL (130-400); WHITE BLOOD COUNT 17.5 10^3/uL (4.3-11.0)
[2023-01-18 18:09] LABS: BILIRUBIN,URINE NEGATIVE (NEGATIVE); CLARITY,URINE CLEAR; COLOR,URINE YELLOW; GLUCOSE, URINE (UA) NEGATIVE (NEGATIVE); KETONES,URINE NEGATIVE (NEGATIVE); LEUKOCYTE ESTERASE ,URINE NEGATIVE (NEGATIVE); NITRITE,URINE NEGATIVE (NEGATIVE); PROTEIN,URINE NEGATIVE (NEGATIVE)
[2023-01-18 18:19] LABS: BACTERIA,URINE NEGATIVE /HPF; WBC,URINE RARE /HPF
[2023-01-18 18:20] LABS: AMPHETAMINE SCREEN, URINE NEGATIVE (NEGATIVE); BARBITURATE SCREEN URINE NEGATIVE (NEGATIVE); CANNABINOID SCREEN, URINE POSITIVE (NEGATIVE); COCAINE SCREEN URINE NEGATIVE (NEGATIVE); METHADONE STAT NEGATIVE (NEGATIVE); OPIATE SCREEN URINE NEGATIVE (NEGATIVE); OXYCODONE STAT NEGATIVE (NEGATIVE); PROPOXYPHENE STAT NEGATIVE (NEGATIVE); TRICYCLIC ANTIDEPRESSANTS SCRE NEGATIVE (NEGATIVE)
[2023-01-18 18:22] LABS: FIBRIN DEGRADATION PRODUCTS 0.35 UG/ML (0.00-0.49); INR 0.8 (0.8-1.4); PROTHROMBIN TIME PATIENT 11.8 SEC (12.2-14.7)
[2023-01-18 18:23] LABS: CHLORIDE 100 MMOL/L (98-107); SODIUM 138 MMOL/L (135-145)
[2023-01-18 18:29] LABS: BAND NEUTROPHILS 5 %; BASOPHILS % (MANUAL) 1 %; EOSINOPHILS % (MANUAL) 1 %; LYMPHOCYTES % (MANUAL) 14 %; MONOCYTES % (MANUAL) 6 %; NEUTROPHILS % (MANUAL) 73 %; PLATELET ESTIMATE ADEQUATE; RBC MORPH NORMAL
[2023-01-18 18:31] LABS: ALANINE AMINOTRANSFERASE 61 U/L (0-55); ALBUMIN 4.6 GM/DL (3.2-4.5); ALKALINE PHOSPHATASE 102 U/L (40-136); BILIRUBIN,TOTAL 0.2 MG/DL (0.1-1.0); BUN/CREATININE RATIO 11; CALCIUM 9.5 MG/DL (8.5-10.1); CARBON DIOXIDE 23 MMOL/L (21-32); CREATININE SERUM 0.66 MG/DL (0.60-1.30); GFR ESTIMATED 131; GLUCOSE 103 MG/DL (70-105); MAGNESIUM 2.1 MG/DL (1.6-2.4); TOTAL PROTEIN 7.8 GM/DL (6.4-8.2)
--- NOTE | 2023-01-18 18:34 | Diagnostic Imaging Report ---
CLINICAL INDICATION: Patient with chest pain. EXAM: Portable chest x-ray, upright view. COMPARISON: Chest x-ray dated 12/16/2022. FINDINGS: Lungs/pleura: The lungs are clear. There is no pneumothorax. There is no pleural effusion. Mediastinum: Unremarkable. Pulmonary vasculature: Unremarkable. Heart: Unremarkable. Bones/extrathoracic soft tissue: Unremarkable. IMPRESSION: There is no radiographic evidence of acute cardiopulmonary process. Dictated by: Dictated on workstation # [id number]
--- NOTE | 2023-01-18 18:55 | ED General ---
General Chief Complaint: Chest Pain Stated Complaint: CHEST PAIN Nursing Triage Note: ARRIVED VIA AMB WITH COMPLAINTS OF CHEST PAIN/SOA X2 DAYS. SENT OVER FROM [facility] TO RULE OUT A PE. History of Present Illness Date Seen by Provider: Jan 18, 2023 Time Seen by Provider: 17:54 Initial Comments 27 yr M is sent here from urgent care with c/o chest pain and SOB for the past 2 days. Denies fever and chills, cough, nausea, vomiting, diarrhea. No known sick contacts. Pt is a cigarette smoker and a marijuana user. Allergies and Home Medications Allergies Coded Allergies: strawberry (Unverified Allergy, Unknown, 10/31/14) Patient Home Medication List Home Medication List Reviewed: Yes Amoxicillin/Potassium Clav (Amox Tr-K Clv 875-125 mg Tab) 875 Mg-125 Mg Tablet, 1 EACH PO BID Prescribed by: TERRI NORMAN on 12/23/21 230 Azithromycin (Azithromycin) 250 Mg Tablet, 250 MG PO DAILY Prescribed by: TERRI NORMAN on 12/16/22 1817 Cephalexin (Cephalexin) 500 Mg Tablet, 500 MG PO TID Prescribed by: PAPITO JORGENSEN on 10/11/20 0517 Hydrocodone/Acetaminophen (Hydrocodone-Acetamin 5-325 mg) 5 Mg-325 Mg Tablet, 1 TAB PO Q6H PRN for PAIN-SEVERE (8-10) Prescribed by: TERRI NORMAN on 12/23/21 230 Ibuprofen (Ibuprofen) 800 Mg Tablet, 800 MG PO Q8H PRN for PAIN Prescribed by: TERRI NORMAN on 12/23/21 230 Potassium Chloride (Potassium Chloride) 20 Meq Tablet.er, 20 MEQ PO BID Prescribed by: TERRI NORMAN on 11/25/22 2345 Review of Systems Review of Systems Constitutional: no symptoms reported EENTM: no symptoms reported Respiratory: short of breath Cardiovascular: chest pain Gastrointestinal: no symptoms reported Skin: no symptoms reported Past Kayqdeh-Ggetlh-Inwqvw Hx Patient Social History Tobacco Use?: Yes Tobacco type used: Cigarettes Substance use?: Yes Substance type: Marijuana Alcohol Use?: No Immunizations Up To Date Tetanus Booster (TDap): More than 5yrs First/Initial COVID19 Vaccinat: Received with unknown date Second COVID19 Vaccination Jc: Received with unknown date Third COVID19 Vaccination Date: Received with unknown date Seasonal Allergies Seasonal Allergies: No Past Medical History Surgery/Hospitalization HX: Methamphetamine abuse, recurrent dental infections Surgeries: Yes (L wrist; knee) Orthopedic Respiratory: No Cardiac: No Hypertension Neurological: No Reproductive Disorders: No Sexually Transmitted Disease: No Genitourinary: No Gastrointestinal: No Musculoskeletal: Yes Arthritis Endocrine: No HEENT: No Cancer: No Psychosocial: Yes Sleep Difficulties, Anxiety, Bipolar, Schizophrenia, Depression Integumentary: No Blood Disorders: No Physical Exam Vital Signs Vital Signs - First Documented 01/18/23 17:41 Temp 36.3 Pulse 117 Resp 16 B/P (MAP) 157/92 (113) Pulse Ox 96 O2 Delivery Room Air Capillary Refill : Less Than 3 Seconds Height, Weight, BMI Height: 6'1.00" Weight: 250lbs. oz. 113.443581mh; 34.00 BMI Method:Stated General Appearance: No Apparent Distress, WD/WN HEENT: PERRL/EOMI, Normal ENT Inspection, Pharynx Normal Neck: Full Range of Motion Respiratory: Chest Non Tender, Lungs Clear, Normal Breath Sounds, No Accessory Muscle Use, No Respiratory Distress Cardiovascular: Regular Rate, Rhythm (Intermittent sinus tachycardia in the range of 100-105 seen on monitor), No Edema Gastrointestinal: Normal Bowel Sounds, Non Tender, Soft Back: No CVA Tenderness Extremity: Normal Range of Motion Neurologic/Psychiatric: Alert, Oriented x3 Skin: Normal Color Procedures/Interventions Suture Size: 4-0 Progress/Results/Core Measures Suspected Sepsis SIRS Temperature: Pulse: 117 Respiratory Rate: 16 Laboratory Tests 01/18/23 17:45: White Blood Count 17.5H Blood Pressure 157 /92 Mean: 113 Laboratory Tests 01/18/23 17:45: Creatinine 0.66, INR Comment 0.8, Platelet Count 323, Total Bilirubin 0.2 Results/Orders Lab Results Laboratory Tests Test 01/18/23 17:45 01/18/23 17:49 01/18/23 19:40 Range/Units White Blood Count 17.5 H 4.3-11.0 10^3/uL Red Blood Count 4.82 4.30-5.52 10^6/uL Hemoglobin 14.6 13.3-17.7 g/dL Hematocrit 43 40-54 % Mean Corpuscular Volume 89 80-99 fL Mean Corpuscular Hemoglobin 30 25-34 pg Mean Corpuscular Hemoglobin Concent 34 32-36 g/dL Red Cell Distribution Width 13.9 10.0-14.5 % Platelet Count 323 130-400 10^3/uL Mean Platelet Volume 9.8 9.0-12.2 fL Immature Granulocyte % (Auto) 1 % Neutrophils (%) (Auto) 75 42-75 % Lymphocytes (%) (Auto) 15 12-44 % Monocytes (%) (Auto) 8 0-12 % Eosinophils (%) (Auto) 1 0-10 % Basophils (%) (Auto) 0 0-10 % Neutrophils # (Auto) 13.2 H 1.8-7.8 10^3/uL Lymphocytes # (Auto) 2.7 1.0-4.0 10^3/uL Monocytes # (Auto) 1.4 H 0.0-1.0 10^3/uL Eosinophils # (Auto) 0.2 0.0-0.3 10^3/uL Basophils # (Auto) 0.1 0.0-0.1 10^3/uL Immature Granulocyte # (Auto) 0.1 0.0-0.1 10^3/uL Neutrophils % (Manual) 73 % Lymphocytes % (Manual) 14 % Monocytes % (Manual) 6 % Eosinophils % (Manual) 1 % Basophils % (Manual) 1 % Band Neutrophils 5 % Platelet Estimate ADEQUATE Percent Immature Platelet Fraction 2.9 0.0-7.6 % Blood Morphology Comment NORMAL Prothrombin Time 11.8 L 12.2-14.7 SEC INR Comment 0.8 0.8-1.4 Activated Partial Thromboplast Time 24 24-35 SEC D-Dimer 0.35 0.00-0.49 UG/ML Sodium Level 138 135-145 MMOL/L Potassium Level 4.0 3.6-5.0 MMOL/L Chloride Level 100 98-107 MMOL/L Carbon Dioxide Level 23 21-32 MMOL/L Anion Gap 15 H 5-14 MMOL/L Blood Urea Nitrogen 7 7-18 MG/DL Creatinine 0.66 0.60-1.30 MG/DL Estimat Glomerular Filtration Rate 131 BUN/Creatinine Ratio 11 Glucose Level 103 70-105 MG/DL Calcium Level 9.5 8.5-10.1 MG/DL Corrected Calcium 8.5-10.1 MG/DL Magnesium Level 2.1 1.6-2.4 MG/DL Total Bilirubin 0.2 0.1-1.0 MG/DL Aspartate Amino Transf (AST/SGOT) 22 5-34 U/L Alanine Aminotransferase (ALT/SGPT) 61 H 0-55 U/L Alkaline Phosphatase 102 40-136 U/L Troponin I < 0.30 <0.30 NG/ML Total Protein 7.8 6.4-8.2 GM/DL Albumin 4.6 H 3.2-4.5 GM/DL Serum Alcohol < 10 <10 MG/DL Urine Color YELLOW Urine Clarity CLEAR Urine pH 7.0 5-9 Urine Specific [place] <=1.005 1.016-1.022 Urine Protein NEGATIVE NEGATIVE Urine Glucose (UA) NEGATIVE NEGATIVE Urine Ketones NEGATIVE NEGATIVE Urine Nitrite NEGATIVE NEGATIVE Urine Bilirubin NEGATIVE NEGATIVE Urine Urobilinogen 0.2 < = 1.0 MG/DL Urine Leukocyte Esterase NEGATIVE NEGATIVE Urine RBC (Auto) NEGATIVE NEGATIVE Urine RBC NONE /HPF Urine WBC RARE /HPF Urine Squamous Epithelial Cells NONE /HPF Urine Crystals NONE /LPF Urine Bacteria NEGATIVE /HPF Urine Casts NONE /LPF Urine Mucus SMALL H /LPF Urine Culture Indicated NO Urine Opiates Screen NEGATIVE NEGATIVE Urine Oxycodone Screen NEGATIVE NEGATIVE Urine Methadone Screen NEGATIVE NEGATIVE Urine Propoxyphene Screen NEGATIVE NEGATIVE Urine Barbiturates Screen NEGATIVE NEGATIVE Ur Tricyclic Antidepressants Screen NEGATIVE NEGATIVE Urine Phencyclidine Screen NEGATIVE NEGATIVE Urine Amphetamines Screen NEGATIVE NEGATIVE Urine Methamphetamines Screen NEGATIVE NEGATIVE Urine Benzodiazepines Screen NEGATIVE NEGATIVE Urine Cocaine Screen NEGATIVE NEGATIVE Urine Cannabinoids Screen POSITIVE H NEGATIVE Influenza Type A (RT-PCR) Not Detected Not Detecte Influenza Type B (RT-PCR) Not Detected Not Detecte SARS-CoV-2 RNA (RT-PCR) Not Detected Not Detecte My Orders Orders - MARVIN CARRERA MD Continuous Ekg Monitoring (01/18/23 17:55) Ekg Tracing (01/18/23 17:55) Chest 1 View Ap/Pa Only (01/18/23 17:55) Alcohol (01/18/23 17:56) Cbc And Automated Diff (01/18/23 17:56) Comprehensive Metabolic Panel (01/18/23 17:56) Fibrin Degradation Products (01/18/23 17:56) Drug Screen Stat (Urine) (01/18/23 17:56) Magnesium (01/18/23 17:56) Protime With Inr (01/18/23 17:56) Partial Thromboplastin Time (01/18/23 17:56) Ua Culture If Indicated (01/18/23 17:56) Troponin I Fs (01/18/23 17:56) Influenza A And B By Pcr (01/18/23 17:56) Covid 19 Inhouse Test (01/18/23 17:56) Manual Differential (01/18/23 17:45) Ct Abdomen/Pelvis W (01/18/23 19:45) Vital Signs/I&O 01/18/23 17:41 Temp 36.3 Pulse 117 Resp 16 B/P (MAP) 157/92 (113) Pulse Ox 96 O2 Delivery Room Air Capillary Refill : Less Than 3 Seconds Blood Pressure Mean: 113 Progress Note : Progress Note 1. CHEST PAIN/ SOB DUE TO MARIJUANA ABUSE : Pt LEFT AMA before all the lab results came back - CXR: no acute findings - CBC/ CMP: unreamrkable - Troponin:undetectable - UA is negative - UDS is positive for marijuana - Pt will need to stop using marijuana -Pt left AMA in spite of risks and benefits being explained to him. Diagnostic Imaging Diagonstic Imaging: Xray Plain Films/CT/US/NM/MRI: chest Comments [facility], [facility]. [place], [place] NAME: ANTONETTE MAGALLANES MED REC#: [id number] PT STATUS: REG ER : 1995 PHYSICIAN: MARVIN CARRERA MD ADMIT DATE: 01/18/23/ER FS Draft Date of Exam:01/18/23 CHEST 1 VIEW AP/PA ONLY CLINICAL INDICATION: Patient with chest pain. EXAM: Portable chest x-ray, upright view. COMPARISON: Chest x-ray dated 12/16/2022. FINDINGS: Lungs/pleura: The lungs are clear. There is no pneumothorax. There is no pleural effusion. Mediastinum: Unremarkable. Pulmonary vasculature: Unremarkable. Heart: Unremarkable. Bones/extrathoracic soft tissue: Unremarkable. IMPRESSION: There is no radiographic evidence of acute cardiopulmonary process. Dictated on workstation # [id number] Dict: 01/18/23 1827 Trans: 01/18/23 1834 [id number] Interpreted by: ISAEL DANG MD Electronically signed by: Departure Impression Primary Impression: Cannabis abuse Additional Impression: Chest pain Disposition: 07 AGAINST MEDICAL ADVICE Condition: Against Medical Advice Departure-Patient Inst. Referrals: SELF,VIANNEY CAPPS (PCP/Family) Primary Care Physician Add. Discharge Instructions: All discharge instructions reviewed with patient and/or family. Voiced understanding. MARVIN CARRERA MD Jan 18, 2023 18:55
== END 2023-01-18 20:06 | disposition left against medical advice (07) ==
LOC: EDUNIT# 17:41 → ER FS 17:43
DX: R07.89 Other chest pain (principal); F12.10 Cannabis abuse, uncomplicated; F17.210 Nicotine dependence, cigarettes, uncomplicated; Z20.822 Contact with and (suspected) exposure to COVID-19
CPT/HCPCS: 36415; 71045; 80053; 80306; 81000; 83735; 84484; 85007; 85027; 85379; 85610; 85730; 87636; 93005; 99284; G0480; 80320